=== PATIENT | female | born 1940 | race Caucasian/White ===

== ENCOUNTER 2017-03-10 09:03 | Outpatient (CLI) | payer MEDICARE, OTHER, MEDICAID ==
--- NOTE | 2017-03-10 12:52 | XRAY Report ---
TWO VIEWS LEFT KNEE: 03/10/2017 CLINICAL HISTORY: The patient has left knee pain. FINDINGS: A left total knee prosthesis is seen in place in anatomical position and alignment. The pr osthesis is held in place by methylmethacrylate glue in the distal femur and proximal tibia. Examinat ion is negative for signs of loosening. The left knee joint shows no effusion. A bony ossicle is seen in the posterior aspect of the soft tissues of the left knee. This probably re presents an accessory ossicle/fabella. Secondary consideration would be a loose body. IMPRESSION: LEFT TOTAL KNEE PROSTHESIS SEEN IN PLACE IN ANATOMICAL POSITION AND ALIGNMENT. JOB #: [id number] EXT JOB #:[id number]
== END 2017-03-10 09:04 | disposition home or self-care (01) ==
LOC: DI 09:03
PROVIDERS: ATTEND Family Medicine
DX: M25.562 Pain in left knee (principal); Z96.652 Presence of left artificial knee joint

== ENCOUNTER 2017-03-10 18:40 | Outpatient (CLI) | payer MEDICARE, OTHER, MEDICAID | END 2017-03-10 18:41 | disposition critical access hospital (66) | LOC: EMS 18:40 | PROVIDERS: ATTEND Surgery | DX: M79.652 Pain in left thigh (principal); W01.0XXA Fall on same level from slipping, tripping and stumbling without subsequent striking against object, initial encounter; Y92.039 Unspecified place in apartment as the place of occurrence of the external cause | CPT/HCPCS: A0425; A0429 ==

== ENCOUNTER 2017-03-10 18:57 | Inpatient (IN) | payer MEDICARE, OTHER, MEDICAID ==
[2017-03-10] MEDS ORDERED: fentaNYL 100 MCG/2 ML VIAL IVP STA (19:15)
[2017-03-10] MEDS ORDERED: fentaNYL 100 MCG/2 ML VIAL ONE (19:19)
--- NOTE | 2017-03-10 19:29 | ED Physician Documentation ---
PD HPI LOWER EXT INJURY - Stated complaint Stated Complaint: GLF - Chief complaint Chief Complaint: Ext Problem - History obtained from History obtained from: Patient, Family - History of Present Illness PD HPI LOW EXT INJURY LOCATION: Left (Mechanical trip and fall onto the left hip today. She has severe pain and is unable to ambulate. No other injuries, no head or neck injury. She does have bilateral total knee replacements.), Other Review of Systems Ten Systems: 10 systems reviewed and negative GI: denies: Abdominal Pain, Nausea Skin: denies: Abrasion (s) Musculoskeletal: denies: Neck pain, Back pain Neurologic: denies: Headache, Head injury PD PAST MEDICAL HISTORY - Past Medical History Past Medical History: Yes Cardiovascular: Hypertension - Allergies Allergies/Adverse Reactions: Allergies Allergy/AdvReac Type Severity Reaction Status Date / Time Penicillins Allergy Unknown Verified 03/10/17 19:31 - Social History Does the pt smoke?: No Does the pt drink ETOH?: No Does the pt have substance abuse?: No - Family History Family history: reports: Non contributory PD ED PE NORMAL - Vitals Vital signs reviewed: Yes - General General: Alert and oriented X 3, Other (obviously in pain) - HEENT HEENT: PERRL, EOMI - Neck Neck: Supple, no meningeal sign, No bony TTP - Cardiac Cardiac: RRR, No murmur - Respiratory Respiratory: No respiratory distress, Clear bilaterally - Abdomen Abdomen: Soft, Non tender - Back Back: No CVA TTP, No spinal TTP - Derm Derm: Normal color, Warm and dry - Extremities Extremities: Other (Left hip is severely shortened and very tender, NVI in the foot.) - Neuro Neuro: Alert and oriented X 3, Normal speech Results - Vitals Vitals: Vital Signs - 24 hr 03/10/17 03/10/17 18:58 19:50 Temperature 36.0 C L Heart Rate 91 96 Respiratory 17 18 Rate Blood Pressure 139/119 H 162/85 H O2 Saturation 99 99 Oxygen O2 Source Room air - EKG (time done) 1951 Rate: Rate (enter#) (91) Rhythm: NSR Intervals: Prolonged [place], LBBB QRS: LVH Ischemia: Non specific changes. No: ST elevation c/w ischemia Computer interpretation: Agree with computer - Labs Labs: Laboratory Tests 03/10/17 03/10/17 03/10/17 19:32 19:32 19:32 WBC 7.0 RBC 3.82 L Hgb 11.9 L Hct 35.1 L MCV 92.0 MCH 31.1 H MCHC 33.8 RDW 15.7 H Plt Count 239 MPV 8.1 Neut # 4.6 Lymph # 1.7 [place] # 0.6 Eos # 0.1 Baso # 0.0 Absolute Nucleated RBC 0.01 Nucleated RBCs 0.1 PT 11.8 INR 1.0 Sodium 138 Potassium 3.4 L Chloride 103 Carbon Dioxide 24 Anion Gap 11.0 BUN 21 H Creatinine 1.1 H Estimated GFR (MDRD) 48 L Glucose 178 H Calcium 9.4 Total Bilirubin 0.8 AST 19 ALT 12 Alkaline Phosphatase 102 Total Protein 7.2 Albumin 4.1 Globulin 3.1 Albumin/Globulin Ratio 1.3 Lipase 44 Blood Type Antibody Screen 03/10/17 19:32 WBC RBC Hgb Hct MCV MCH MCHC RDW Plt Count MPV Neut # Lymph # [place] # Eos # Baso # Absolute Nucleated RBC Nucleated RBCs PT INR Sodium Potassium Chloride Carbon Dioxide Anion Gap BUN Creatinine Estimated GFR (MDRD) Glucose Calcium Total Bilirubin AST ALT Alkaline Phosphatase Total Protein Albumin Globulin Albumin/Globulin Ratio Lipase Blood Type A POSITIVE Antibody Screen NEGATIVE - Rads (name of study) 1v chest Radiology: EMP read contemporaneously (3cm Left perihilar opacity) L hip Radiology: EMP read contemporaneously (subtroch frx) PD MEDICAL DECISION MAKING - ED course ED course: Isolated L hip inj after GLF. Spoke with ania Araiza, will likely operate tomorrow. Also Dr Pearce, hospitalist who will admit and followup on Chest CT. - Consults Consults: Consulted (name) (ania BECK, will see and likely operate tomorrow) , Discussed case with (Paolo Pearce, hospitalist [id number] will f/u on chest CT given abnormality.) Departure - Departure Disposition: 66 [facility] DC/Xfer Clinical Impression: Pulmonary mass Subtrochanteric fracture of left femur Qualifiers: Encounter type: initial encounter Fracture type: closed Qualified Code(s): S72.22XA - Displaced subtrochanteric fracture of left femur, initial encounter for closed fracture Condition: Serious
[2017-03-10 19:40] LABS: BASOPHILS % (AUTO) 0.5 %; EOSINOPHILS # (AUTO) 0.1 10^3/uL (0.0-0.7); HCT - HEMATOCRIT 35.1 % (37.0-47.0); HGB - HEMOGLOBIN 11.9 g/dL (12.0-16.0); LYMPHOCYTES # (AUTO) 1.7 10^3/uL (1.5-3.5); LYMPHOCYTES % (AUTO) 24.4 %; MEAN CORPUSCULAR HEMOGLOBIN 31.1 pg (27.0-31.0); MEAN CORPUSCULAR HGB CONC 33.8 g/dL (32.0-36.0); MEAN PLATELET VOLUME 8.1 fL (7.9-10.8); MONOCYTES # (AUTO) 0.6 10^3/uL (0.0-1.0); MONOCYTES % (AUTO) 8.3 %; NEUTROPHILS # (AUTO) 4.6 10^3/uL (1.5-6.6); NEUTROPHILS % (AUTO) 64.8 %; NUCLEATED RED BLOOD CELLS AUTO 0.1 /100WBC; RED BLOOD COUNT 3.82 10^6/uL (4.20-5.40); RED CELL DISTRIBUTION WIDTH 15.7 % (12.0-15.0)
[2017-03-10 19:46] LABS: PT - PROTHROMBIN TIME 11.8 secs (9.9-12.6)
[2017-03-10] MEDS ORDERED: HYDROmorphone 1 MG/ML SYRINGE ONE ×2 (19:47→20:17)
[2017-03-10] MEDS ORDERED: HYDROmorphone 1 MG/ML SYRINGE IVP STA ×2 (19:48→20:18)
[2017-03-10 19:53] LABS: ALBUMIN/GLOBULIN RATIO 1.3 (1.0-2.2); BILIRUBIN,TOTAL 0.8 mg/dL (0.2-1.0); CALCIUM 9.4 mg/dL (8.5-10.3); CREATININE 1.1 mg/dL (0.4-1.0); POTASSIUM 3.4 mmol/L (3.5-5.0); TOTAL PROTEIN 7.2 g/dL (6.7-8.2)
--- NOTE | 2017-03-10 20:44 | XRAY Preliminary Report ---
Exam: XR Chest 1 View IMPRESSION: 1. A 3 cm left perihilar density. Question lung nodule, loculated pleural fluid, focal airspace disea se or superimposed postoperative seroma from prior lumpectomy. Consider chest CT if clinically warran carmen. [facility] SITE ID: [id number]
--- NOTE | 2017-03-10 20:46 | XRAY Report ---
EXAM: CHEST RADIOGRAPHY EXAM DATE: 03/10/2017 08:21 PM. CLINICAL HISTORY: Preop. COMPARISON: None. TECHNIQUE: 1 view. Brassiere artifact. FINDINGS: Lungs/Pleura: 3 cm left perihilar density. No pneumothorax or pleural effusion. Mediastinum: Atherosclerotic aortic calcifications. Other: Left axillary surgical clips. Question prior left breast surgery. Probable hiatal hernia. IMPRESSION: 1. A 3 cm left perihilar density. Question lung nodule, loculated pleural fluid, focal airspace disea se or superimposed postoperative seroma from prior lumpectomy. Consider chest CT if clinically warran carmen. Case discussed with Dr. Rivera on day of exam at 8:42 PM. [facility] Referring Provider Line: [phone] SITE ID: [id number]
--- NOTE | 2017-03-10 20:48 | XRAY Preliminary Report ---
Exam: XR Hip w/Pelvis 2-3V LT IMPRESSION: Acute oblique subtrochanteric left femur fracture with 25 degrees apex lateral angulatio n and 3 cm displacement. [facility] SITE ID: [id number]
--- NOTE | 2017-03-10 20:51 | XRAY Report ---
EXAM: LEFT HIP AND PELVIS RADIOGRAPHY EXAM DATE: 03/10/2017 08:21 PM. HISTORY: Hip inj. COMPARISONS: None. TECHNIQUE: 1 view of the pelvis and 1 view of the hip. FINDINGS: Bones: Acute oblique subtrochanteric left femur fracture with 25 degrees apex lateral angulation and 3 cm displacement. Joints: The bilateral hip, pubis symphysis, and sacroiliac joints are preserved. Soft Tissues: Lateral left hip soft tissue swelling. IMPRESSION: Acute oblique subtrochanteric left femur fracture with 25 degrees apex lateral angulatio n and 3 cm displacement. [facility] Referring Provider Line: [phone] SITE ID: [id number]
[2017-03-10] MEDS ORDERED: ACETAMINOPHEN 1,000 MG/100 ML 100 ML IV STA (21:17)
[2017-03-10] MEDS ORDERED: ACETAMINOPHEN 1,000 MG/100 ML 100 ML IV ONE (21:19)
[2017-03-10] MEDS ORDERED: IOPAMIDOL-300 100 ML VIAL IVP ONE (21:20)
[2017-03-10] MEDS ORDERED: POTASSIUM CHLORIDE 20 MEQ TABLET PO STA (21:29)
[2017-03-10] MEDS ORDERED: ZOLPIDEM 5 MG TABLET PO PRN (21:30)
[2017-03-10] MEDS ORDERED: SODIUM CHLORIDE FLUSH 0.9% 10 ML SYRINGE IVP PRN (21:30)
[2017-03-10] MEDS ORDERED: ACETAMINOPHEN 325 MG TABLET PO PRN (21:30)
[2017-03-10] MEDS ORDERED: oxyCODONE 5 MG TABLET PO PRN (21:30)
[2017-03-10] MEDS ORDERED: ONDANSETRON 4 MG/2 ML VIAL IVP PRN (21:30)
[2017-03-10] MEDS ORDERED: POTASSIUM CHLORIDE 20 MEQ TABLET PO ONE (21:33)
[2017-03-10] MEDS ORDERED: SODIUM CHLORIDE 0.9% 500 ML IV SCH (21:35)
--- NOTE | 2017-03-10 21:50 | CT Preliminary Report ---
Exam: CT Chest W/ IMPRESSION: 1. Spiculated nodule in the superior segment of the left lower lobe with small adjacent satellite nod ule, appearance most compatible with primary lung malignancy. Recommend tissue sampling. 2. Several tiny pulmonary nodules elsewhere, including in the left lower lobe base and posterior righ t middle lobe, indeterminate. 3. No adenopathy. 4. Moderate to large hiatal hernia. 5. Cholelithiasis. [facility] SITE ID: [id number]
--- NOTE | 2017-03-10 21:53 | CT Report ---
EXAM: CT CHEST EXAM DATE: 03/10/2017 09:21 PM. CLINICAL HISTORY: Pulmonary mass. COMPARISONS: Chest radiograph, same day. TECHNIQUE: Routine helical CT imaging was performed through the chest. IV contrast: 60 mL Isovue-300. Reconstructions: Coronal and sagittal. In accordance with CT protocol optimization, one or more of the following dose reduction techniques w ere utilized for this exam: automated exposure control, adjustment of mA and/or KV based on patient s ize, or use of iterative reconstructive technique. FINDINGS: Thyroid Gland: Normal as visualized. Lungs/Pleura: Spiculated nodule in the superior segment of the left lower lobe, abutting the fissure, 3.0 x 2.8 x 2.8 cm (lung window image 45, coronal image 41). Adjacent 4 mm subpleural satellite nodu le (image 28). Few small pulmonary nodules elsewhere, including a 6 mm nodule in the medial left lowe r lobe base (image 42), a 4 mm subpleural nodule in the central left lower lobe base (image 46), and a 3 mm nodule in the posterior right middle lobe (image 29). Mild dependent atelectasis. No pleural e ffusion. Mediastinum: Heart size is normal. No pericardial effusion. Mild atherosclerotic calcifications withi n the aorta. The aorta and visualized central pulmonary arteries are otherwise unremarkable. No adeno yared. Bones: Degenerative changes within the spine. No suspicious lytic or blastic osseous lesion. Visualized Abdomen: Moderate to large hiatal hernia containing the proximal stomach. Cholelithiasis. Focal cortical scarring in the upper pole of the right kidney. 14 mm cortical cyst in the posterior r ight upper pole. Other: None. IMPRESSION: 1. Spiculated nodule in the superior segment of the left lower lobe with small adjacent satellite nod ule, appearance most compatible with primary lung malignancy. Recommend tissue sampling. 2. Several tiny pulmonary nodules elsewhere, including in the left lower lobe base and posterior righ t middle lobe, indeterminate. 3. No adenopathy. 4. Moderate to large hiatal hernia. 5. Cholelithiasis. [facility] Referring Provider Line: [phone] SITE ID: [id number]
[2017-03-10] MEDS ORDERED: POTASSIUM CHLORIDE 20 MEQ TABLET PO SCH (21:56)
[2017-03-10] MEDS: SODIUM CHLORIDE FLUSH 0.9% 10 ML SYRINGE IVP SCH (22:28)
[2017-03-10] MEDS: KETOROLAC 15 MG/ML VIAL IVP PRN (22:48)
[2017-03-10] MEDS: MORPHINE 2 MG/ML SYRINGE IVP PRN (22:55)
[2017-03-11] MEDS: MORPHINE 2 MG/ML SYRINGE IVP PRN ×2 (00:58→06:29)
[2017-03-11 01:39] LABS: BILIRUBIN,URINE NEGATIVE (NEGATIVE)
[2017-03-11 01:45] LABS: UR CULTURE IF IND NOT INDICATED; WBC,URINE 0-3 /HPF (0-5)
[2017-03-11] MEDS: SODIUM CHLORIDE FLUSH 0.9% 10 ML SYRINGE IVP SCH (06:30)
--- NOTE | 2017-03-11 06:34 | PROVIDER PROGRESS NOTE ---
Subjective - Prog Note Date Prog Note Date: 03/11/17 Prog Note Time: 06:31 - Subjective Pt reports feeling: Worse (Painful left hip) Objective - Vital Signs/Intake & Output Vital Signs: Vital Signs x48h Temp Pulse Resp BP Pulse Ox 03/11/17 01:04 37.0 C 88 16 142/88 H 98 Intake & Output: Intake & Output 03/08/17 03/09/17 03/10/17 03/11/17 23:59 23:59 23:59 23:59 Intake Total 500 Output Total 225 Balance -225 500 - Lab Results Fish Bones: 03/10/17 19:32 03/10/17 19:32 Other Labs: Lab Results x24hrs 03/11/17 03/11/17 03/11/17 Range/Units 05:51 05:51 01:10 Troponin I < 0.04 (<0.49) ng/mL B-Natriuretic Peptide 94 (5-100) pg/mL Urine Color YELLOW Urine Clarity CLEAR (CLEAR) Urine pH 6.0 (5.0-7.5) PH Ur Specific [place] 1.015 (1.002-1.030) Urine Protein NEGATIVE (NEGATIVE) mg/dL Urine Glucose (UA) NEGATIVE (NEGATIVE) mg/dL Urine Ketones NEGATIVE (NEGATIVE) mg/dL Urine Occult Blood NEGATIVE (NEGATIVE) Urine Nitrite NEGATIVE (NEGATIVE) Urine Bilirubin NEGATIVE (NEGATIVE) Urine Urobilinogen 0.2 (NORMAL) (NORMAL) E.U./dL Ur Leukocyte Esterase NEGATIVE (NEGATIVE) Urine RBC 0-5 (0-5) /HPF Urine WBC 0-3 (0-5) /HPF Ur Squamous Epith Cells FEW Squamous (<= Few) Urine Bacteria Rare (None Seen) /HPF Urine Culture Comments NOT INDICATED - Diagnostic Imaging Diagnostic Imaging Comments: XR show angulated left subtrochanteric hip fracture. Intact left TKR with short femoral stem - Other Results/Comments Other Results/Comments: EXAM: Left hip held in a flexed position. Painful left motion. Moves toes well. Sensation intact. Good cap filling Assessment/Plan - Problem List (1) Subtrochanteric fracture of left femur Impression: Closed left subtrochanteric hip fracture PLAN: To OR for long interTan nailing of left hip fracture. Risk and benefits explained. Patient appears to understand and wants to proceed as planned this AM..Attempts to contact daughter through the night and this AM unsuccessful. Qualifiers: Encounter type: initial encounter Fracture type: closed Qualified Code(s) : S72.22XA - Displaced subtrochanteric fracture of left femur, initial encounter for closed fracture
[2017-03-11] MEDS ORDERED: ceFAZolin 2 GM/50 ML 50 ML IV SCH (06:45)
--- NOTE | 2017-03-11 07:02 | PROVIDER PROGRESS NOTE ---
Subjective - Prog Note Date Prog Note Date: 03/11/17 Prog Note Time: 07:01 Objective - Vital Signs/Intake & Output Vital Signs: Vital Signs x48h Temp Pulse Resp BP Pulse Ox 03/11/17 03:53 37.2 C 89 16 146/78 H 95 03/11/17 01:04 37.0 C 88 16 142/88 H 98 Intake & Output: Intake & Output 03/08/17 03/09/17 03/10/17 03/11/17 23:59 23:59 23:59 23:59 Intake Total 500 Output Total 225 400 Balance -225 100 - Lab Results Fish Bones: 03/10/17 19:32 03/10/17 19:32 Other Labs: Lab Results x24hrs 03/11/17 03/11/17 03/11/17 Range/Units 05:51 05:51 01:10 Troponin I < 0.04 (<0.49) ng/mL B-Natriuretic Peptide 94 (5-100) pg/mL Urine Color YELLOW Urine Clarity CLEAR (CLEAR) Urine pH 6.0 (5.0-7.5) PH Ur Specific [place] 1.015 (1.002-1.030) Urine Protein NEGATIVE (NEGATIVE) mg/dL Urine Glucose (UA) NEGATIVE (NEGATIVE) mg/dL Urine Ketones NEGATIVE (NEGATIVE) mg/dL Urine Occult Blood NEGATIVE (NEGATIVE) Urine Nitrite NEGATIVE (NEGATIVE) Urine Bilirubin NEGATIVE (NEGATIVE) Urine Urobilinogen 0.2 (NORMAL) (NORMAL) E.U./dL Ur Leukocyte Esterase NEGATIVE (NEGATIVE) Urine RBC 0-5 (0-5) /HPF Urine WBC 0-3 (0-5) /HPF Ur Squamous Epith Cells FEW Squamous (<= Few) Urine Bacteria Rare (None Seen) /HPF Urine Culture Comments NOT INDICATED Assessment/Plan - Problem List (1) Subtrochanteric fracture of left femur Impression: PLAN: Did contact patient's daughter by phone. Explained surgical options for her mother and answered questions. Explained risk and benefits of surgery. Will plan as scheduled with interTan nialing of left hip fracture this AM. Qualifiers: Encounter type: initial encounter Fracture type: closed Qualified Code(s) : S72.22XA - Displaced subtrochanteric fracture of left femur, initial encounter for closed fracture
--- NOTE | 2017-03-11 07:09 | CONSULTATION NOTE ---
DATE OF CONSULTATION: 03/11/2017 00:00:00 REQUESTING PROVIDER: Dr. Avni Rivera of the emergency room. CHIEF COMPLAINT: "My left hip hurts." HISTORY OF PRESENT ILLNESS: The patient is a 77-year-old woman who apparently was attemptin g to walk around a chair to sit in a sofa in her living room yesterday when she lost her balance and fell onto her left side. She noted immediate pain and deformity at the left hip. Was unable to stand or weight bear on this left side. She was taken to the emergency room here at [facility], where x-rays showed an angulated left closed subtrochanteric hip fracture. She denies a loss of co nsciousness or other injuries. No distal weakness or numbness noted. No prior hip fractures noted. PHYSICAL EXAMINATION GENERAL: An overweight elderly female lying in bed with her left hip flexed in moderate dis tress. VITAL SIGNS: BP 142/88, pulse 88, respirations 16. MUSCULOSKELETAL: Left hip - held in a flexed position. Painful hip range of motion noted. The patient moves her toes well on command. Sensation appeared to be intact. Good capillary filling noted. IMAGING: X-rays taken in the emergency room show an angulated subtrochanteric hip fracture. The patie nt has had a prior left total knee replacement as well. This shows prosthesis to be stable. Has a amna rt femoral stem present. ASSESSMENT: Closed angulated left subtrochanteric hip fracture. PLAN: Discussed treatment options with the patient today. She wishes to proceed with surgical interve ntion. I attempted to contact the daughter but was unable to reach her by phone this morning. Per the patient's wishes and my advice, we will then proceed with a closed long InterTan nailing of the left hip fracture. Risks and benefits of surgery were explained to the patient. She appeared to chris barbosa Wishes us to proceed as planned. JOB #: [id number] EXT JOB #:[id number]
--- NOTE | 2017-03-11 07:27 | HISTORY & PHYSICAL EXAMINATION ---
DATE OF ADMISSION: 03/10/2017 CHIEF COMPLAINT: Ground-level fall. SOURCE OF HISTORY: The patient's daughter and the ER doctor provided history, on admission the patient was drowsy after given pain medication. HISTORY OF PRESENT ILLNESS: The patient is a 77-year-old white female with past medical history of remote breast cancer status post lumpectomy, osteoarthritis, and hypertension, who was brought into [facility] ER after she suffered a ground- level fall and developed intense left hip pain, was unable to ambulate. At the ER, the patient was found with a complex left hip fracture, orthopedic surgeon, Dr. Mcgarry, was notified and he thought that the patient was an operative candidate and should be going for surgery on the morning of March 11. Given the intense pain, the patient received pain medications, and when I interviewed her she could not provide much input. Her daughter, however, reported that this was clearly a ground-level fall, the patient tripped over a trash can. The patient could tell me that she did not have any chest pain, shortness of breath , dizziness prior to or after the fall. Regarding the ER workup, EKG showed left ventricular hypertrophy. No acute ischemia. Laboratory showed hemoglobin of 11.9, BUN 21, creatinine 1.1. INR was normal. Potassium was 3.4. Chest x-ray showed a 3 cm perihilar opacity. The ER physician discussed this with the radiologist and initially the radiologist's opinion was that it could be an extrapulmonary opacity secondary to a postoperative seroma related to the patient's remote breast lumpectomy. In any case, this was followed up with a CT scan of the chest, which unfortunately showed a spiculated complex mass, most consistent with malignancy. In addition, there were other smaller lung nodules. Regarding the vital signs, the patient had been hemodynamically stable. She did not require supplemental oxygen, saturating 100% on room air, respiration rate was 16, blood pressure 150/70, temperature 36.6 Celsius, heart rate was in the 80s. ALLERGIES: PENICILLIN. PAST MEDICAL HISTORY 1. Hypertension. 2. Osteoarthritis status post bilateral knee replacements. 3. History of left-sided breast cancer status post remote lumpectomy, no recurrence. OUTPATIENT MEDICATIONS: The patient takes multiple medications including diuretics. She could not provide a medication list. SOCIAL HISTORY: The patient resides at [facility] assisted [facility] facility. She is a nonsmoker. EMERGENCY ROOM WORKUP: Reviewed per electronic medical record. PRIMARY CARE PHYSICIAN: Kan Taveras. CODE STATUS: DO NOT RESUSCITATE. REVIEW OF SYSTEMS: The patient could not provide, symptoms listed by her daughter are in the history of present illness. FAMILY HISTORY: The patient could not provide. PHYSICAL EXAMINATION VITAL SIGNS: Please see listed above in history of present illness. GENERAL APPEARANCE: A well-developed, elderly female who was somnolent but arousable. NEUROLOGICAL: Neurologically nonfocal. PSYCH: Cooperative. CARDIOVASCULAR: S1, S2, regular, no obvious murmur. RESPIRATORY: No increased work of breathing, clear to auscultation without wheezes or crackles. ABDOMEN: Obese, nontender. Bowel sounds present. MUSCULOSKELETAL: Obese. Left hip pain, tenderness, decreased range of motion. LYMPH: There is 1+ pitting edema on both lower extremities. SKIN: Mild pallor, no jaundice. ASSESSMENT AND PLAN Active issues/diagnoses: 1. Mechanical fall. Besides this fall, the patient did suffer a fall a few months ago. She might need more assistance as an outpatient than what she had been receiving. 2. Subtrochanteric fracture of the left femur. 3. Pulmonary spiculated mass on the left side, this is most likely malignancy and will require biopsy and further workup. 4. Mild hypokalemia, was replaced in the emergency room. 5. Dehydration, likely secondary to outpatient diuretic use. 6. Anemia, unknown baseline blood counts, no history or symptoms for gastrointestinal bleed. PLAN AND ORDERS 1. The patient is getting admitted as inpatient. It seems that her care could not be better facilitated if I would approach transferring her somewhere overnight. She actually already has an orthopedic surgeon who agreed to operate on her on March 11, and repair her hip fracture. After her hip fracture is handled, it should be a priority to obtain biopsy for the left lung mass. Therefore, there are several options. The best, I think, would be get the hip surgery done and subsequently instead of physical therapy here at [facility], transfer the patient to a facility where together with her orthopedic recovery she could have the lung mass workup done as well. In any case, this will be coordinated at a later time, I suppose on the second or third hospital day. I did advise the patient's daughter and the patient about the lung mass, and I told them that a biopsy will be needed. Regarding preoperative clearance, the patient's clinical status was stable. She did not require supplemental oxygen and I do not think that the lung mass would affect the hip surgery. Cardiac carrera, there was no contraindication. 2. Overnight, the patient is receiving pain control, supportive care, will be n.p.o. after midnight, will receive IV fluids. DVT prophylaxis. 3. Awaiting medication reconciliation. 4. Social work for discharge planning. Time spent in the care of this patient was 65 minutes. JOB #: [id number] EXT JOB #:[id number] [email or web address]
[2017-03-11] MEDS ORDERED: LACTATED RINGERS 1,000 ML IV ONE ×3 (08:18)
[2017-03-11] MEDS ORDERED: DEXAMETHASONE 4 MG/ML VIAL IVP ONE (08:53)
[2017-03-11] MEDS ORDERED: ceFAZolin 1 GM VIAL IV ONE (08:53)
[2017-03-11] MEDS ORDERED: LIDOCAINE-MPF 2% 5 ML VIAL IM ONE (08:53)
[2017-03-11] MEDS ORDERED: ONDANSETRON 4 MG/2 ML VIAL IVP ONE (08:53)
[2017-03-11] MEDS ORDERED: PHENYLEPHRINE 50 MG/5 ML VIAL IV ONE (08:53)
[2017-03-11] MEDS ORDERED: fentaNYL 100 MCG/2 ML VIAL IVP ONE (08:53)
[2017-03-11] MEDS ORDERED: MIDAZOLAM 2 MG/2 ML VIAL IVP ONE (08:53)
[2017-03-11] MEDS ORDERED: PROPOFOL 200 MG/20 ML VIAL IVP ONE (08:53)
[2017-03-11] MEDS ORDERED: TRANEXAMIC ACID 1,000 MG/10 ML VIAL IV ONE (08:53)
[2017-03-11] MEDS ORDERED: ACETAMINOPHEN 1,000 MG/100 ML VIAL IV ONE (08:53)
[2017-03-11] MEDS ORDERED: FAMOTIDINE 20 MG/50 ML 50 ML IV SCH (09:00)
[2017-03-11] MEDS ORDERED: ENOXAPARIN 40 MG/0.4 ML SYRINGE SUBQ SCH (09:00)
[2017-03-11 09:26] LABS: HCT - HEMATOCRIT 25.3 % (37.0-47.0)
[2017-03-11] MEDS ORDERED: SODIUM CHLORIDE 0.9% 1,000 ML IV ONE ×2 (10:46)
[2017-03-11] MEDS ORDERED: BUPIVACAINE 0.25%-EPI 1:200000 PF 30 ML VIAL SUBQ ONE ×2 (10:59→12:06)
[2017-03-11] MEDS ORDERED: ACETAMINOPHEN 1,000 MG/100 ML 100 ML IV PRN (11:56)
[2017-03-11] MEDS ORDERED: DOCUSATE SODIUM 100 MG CAPSULE PO PRN (11:56)
[2017-03-11] MEDS ORDERED: ONDANSETRON 4 MG/2 ML VIAL IVP PRN (11:56)
[2017-03-11] MEDS ORDERED: MORPHINE 2 MG/ML SYRINGE IVP PRN (11:56)
[2017-03-11] MEDS ORDERED: PROCHLORPERAZINE 10 MG/2 ML VIAL IVP PRN (11:56)
[2017-03-11] MEDS ORDERED: SENNA 8.6 MG TABLET PO PRN (11:56)
--- NOTE | 2017-03-11 11:56 | OPERATIVE REPORT ---
Operative Report - General Admit Date: 03/10/17 Procedure Date: 03/11/17 Planned Procedure: INterTan nailing of left subtrochanter hip fracture Pre-Op Diagnosis: Right subtrochanteric hip fracture Post Op Diagnosis: Same - Procedure Note Primary Surgeon: Lloyd Mcgarry Anesthesia Provider: Allan Aguirre Anesthesia Technique: General ET tube Estimated Blood Loss (in cc): 1,800 Complications: None
[2017-03-11] MEDS ORDERED: SODIUM CHLORIDE 0.9% 0 ML IV ONE (12:39)
--- NOTE | 2017-03-11 13:33 | PROVIDER PROGRESS NOTE ---
Assessment/Plan - Problem List (1) Pulmonary mass Assessment/Plan: She has a spiculated 3 cm mass of the lung. This needs further W/U. Will decide on the W/U after her surgery. (2) Subtrochanteric fracture of left femur Qualifiers: Encounter type: initial encounter Fracture type: closed Qualified Code(s) : S72.22XA - Displaced subtrochanteric fracture of left femur, initial encounter for closed fracture Assessment/Plan: She is post op a couple of hours. She is in ICU due to blood loss. She has received 3 units of PRBCs. She is getting 2 units of FFP. She will have a H/H this afternoon. - Current Meds Current Meds: Current Medications Generic Name Dose Route Start Last Admin Trade Name Freq PRN Reason Stop Dose Admin Ketorolac Tromethamine 15 mg 03/10/17 21:36 03/10/17 22:48 Toradol Inj IVP 03/15/17 21:35 15 mg Q6HR PRN Administration PAIN - Lab Result Fish Bone Diagrams: 03/11/17 09:00 03/10/17 19:32 - Additional Planning My Orders: My Active Orders 03/11/17 09:29 Transfuse RBCs Leukoreduced [RC] ONCE 03/11/17 12:10 MRSA (NASAL) PCR SCREEN [RAPID] Routine 03/11/17 12:16 Cultural Swab [RC] .ONCE Subjective - Subjective Patient Reports: Pain Nursing Reports: Sedated Objective Vital Signs: Vital Signs - 24 hr 03/10/17 03/11/17 03/11/17 22:30 01:04 03:53 Temperature 36.6 C 37.0 C 37.2 C Heart Rate [ 82 88 89 Brachial] Respiratory 16 16 16 Rate Blood Pressure 133/75 H 142/88 H 146/78 H [Right Brachial artery] O2 Saturation 97 98 95 03/11/17 03/11/17 03/11/17 12:00 12:10 12:15 Temperature Heart Rate [ Brachial] Respiratory Rate Blood Pressure [Right Brachial artery] O2 Saturation 100 100 98 03/11/17 03/11/17 03/11/17 12:20 12:26 12:27 Temperature 36.4 C L Heart Rate [ 68 Brachial] Respiratory 16 Rate Blood Pressure 110/81 H [Right Brachial artery] O2 Saturation 100 100 100 03/11/17 03/11/17 12:33 13:17 Temperature 36.4 C L Heart Rate [ 73 Brachial] Respiratory 18 Rate Blood Pressure 127/61 [Right Brachial artery] O2 Saturation 100 Oxygen O2 Source Room air I&O (Last 24 Hrs): Intake and Output Totals x24h 03/09/17 03/10/17 03/11/17 23:59 23:59 23:59 Intake Total 764 Output Total 225 410 Balance -225 354 General: Alert, Cooperative HEENT: PERRLA, EOMI Neck: No JVD, No thyromegaly Neuro: Non Focal Cardiovascular: Regular rate, No murmurs Respiratory: No respiratory distress, Breath sounds nml Abdomen: Soft, No tenderness Extremities: No clubbing, No cyanosis Skin: No rashes, No breakdown - Results Results: Laboratory Results WBC 7.0 x10^3/uL (4.8-10.8) 03/10/17 19:32 RBC 3.82 10^6/uL (4.20-5.40) L 03/10/17 19:32 Hgb 9.0 g/dL (12.0-16.0) L 03/11/17 09:00 Hct 25.3 % (37.0-47.0) L 03/11/17 09:00 MCV 92.0 fL (81.0-99.0) 03/10/17 19:32 MCH 31.1 pg (27.0-31.0) H 03/10/17 19:32 MCHC 33.8 g/dL (32.0-36.0) 03/10/17 19:32 RDW 15.7 % (12.0-15.0) H 03/10/17 19:32 Plt Count 239 10^3/uL (130-450) 03/10/17 19:32 MPV 8.1 fL (7.9-10.8) 03/10/17 19:32 Neut # 4.6 10^3/uL (1.5-6.6) 03/10/17 19:32 Lymph # 1.7 10^3/uL (1.5-3.5) 03/10/17 19:32 [place] # 0.6 10^3/uL (0.0-1.0) 03/10/17 19:32 Eos # 0.1 10^3/uL (0.0-0.7) 03/10/17 19:32 Baso # 0.0 10^3/uL (0.0-0.1) 03/10/17 19:32 Absolute Nucleated RBC 0.01 x10^3/uL 03/10/17 19:32 Nucleated RBCs 0.1 /100WBC 03/10/17 19:32 PT 11.8 secs (9.9-12.6) 03/10/17 19:32 INR 1.0 (0.8-1.2) 03/10/17 19:32 Sodium 138 mmol/L (135-145) 03/10/17 19:32 Potassium 3.4 mmol/L (3.5-5.0) L 03/10/17 19:32 Chloride 103 mmol/L (101-111) 03/10/17 19:32 Carbon Dioxide 24 mmol/L (21-32) 03/10/17 19:32 Anion Gap 11.0 (6-13) 03/10/17 19:32 BUN 21 mg/dL (6-20) H 03/10/17 19:32 Creatinine 1.1 mg/dL (0.4-1.0) H 03/10/17 19:32 Estimated GFR (MDRD) 48 (>89) L 03/10/17 19:32 Glucose 178 mg/dL (70-100) H 03/10/17 19:32 Calcium 9.4 mg/dL (8.5-10.3) 03/10/17 19:32 Total Bilirubin 0.8 mg/dL (0.2-1.0) 03/10/17 19:32 AST 19 IU/L (10-42) 03/10/17 19:32 ALT 12 IU/L (10-60) 03/10/17 19:32 Alkaline Phosphatase 102 IU/L (42-121) 03/10/17 19:32 Troponin I < 0.04 ng/mL (<0.49) 03/11/17 05:51 B-Natriuretic Peptide 94 pg/mL (5-100) 03/11/17 05:51 Total Protein 7.2 g/dL (6.7-8.2) 03/10/17 19:32 Albumin 4.1 g/dL (3.2-5.5) 03/10/17 19:32 Globulin 3.1 g/dL (2.1-4.2) 03/10/17 19:32 Albumin/Globulin Ratio 1.3 (1.0-2.2) 03/10/17 19:32 Lipase 44 U/L (22-51) 03/10/17 19:32 Urine Color YELLOW 03/11/17 01:10 Urine Clarity CLEAR (CLEAR) 03/11/17 01:10 Urine pH 6.0 PH (5.0-7.5) 03/11/17 01:10 Ur Specific [place] 1.015 (1.002-1.030) 03/11/17 01:10 Urine Protein NEGATIVE mg/dL (NEGATIVE) 03/11/17 01:10 Urine Glucose (UA) NEGATIVE mg/dL (NEGATIVE) 03/11/17 01:10 Urine Ketones NEGATIVE mg/dL (NEGATIVE) 03/11/17 01:10 Urine Occult Blood NEGATIVE (NEGATIVE) 03/11/17 01:10 Urine Nitrite NEGATIVE (NEGATIVE) 03/11/17 01:10 Urine Bilirubin NEGATIVE (NEGATIVE) 03/11/17 01:10 Urine Urobilinogen 0.2 (NORMAL) E.U./dL (NORMAL) 03/11/17 01:10 Ur Leukocyte Esterase NEGATIVE (NEGATIVE) 03/11/17 01:10 Urine RBC 0-5 /HPF (0-5) 03/11/17 01:10 Urine WBC 0-3 /HPF (0-5) 03/11/17 01:10 Ur Squamous Epith Cells FEW Squamous (<= Few) 03/11/17 01:10 Urine Bacteria Rare /HPF (None Seen) 03/11/17 01:10 Urine Culture Comments NOT INDICATED 03/11/17 01:10 Blood Type A POSITIVE 03/10/17 19:32 Blood Type Recheck A POSITIVE 03/11/17 05:51 Antibody Screen NEGATIVE 03/10/17 19:32 Crossmatch IS Only See Detail 03/11/17 10:00
--- NOTE | 2017-03-11 13:34 | OPERATIVE REPORT ---
DATE OF SURGERY: 03/11/2017 00:00:00 PREOPERATIVE DIAGNOSIS: Angulated left subtrochanteric hip fracture. POSTOPERATIVE DIAGNOSIS: Angulated left subtrochanteric hip fracture. NAME OF PROCEDURE: Open reduction and InterTan nailing of left subtrochanteric hip fracture. SURGEON: Lloyd Mcgarry MD ANESTHESIA: Dasha Aguirre MD DESCRIPTION OF PROCEDURE: The patient was taken to the operating room on the morning of February, where she was placed under general anesthetic without any complications. She was then positioned s upine onto the fracture table. Her unfractured right leg was then flexed at her hip and widely abduct ed. This leg was held in the well leg dill. We then placed the fractured left lower extremity into axial traction with the leg internally rotated about 20 degrees. X-rays taken of the fracture with th e fracture in traction showed the fracture to be out to length, but the proximal portion to be flexed and not in alignment with the femoral shaft. Several attempts were made to improve the position, but were unsuccessful trying closed technique. We then prepped and draped the lateral aspect of her thigh in the usual fashion for our procedure. We then made a 6-inch lateral skin incision along the proximal portion of her thigh. We then did a musc le-dissecting splitting approach through the vastus lateralis muscle down to the fracture. Then, usin g Woods elevators and other instruments, we were able to free up the fracture fragments and to reduce the fracture. This was held in place with a large Bude clamp. Satisfied with our reduction in the o perating room, we then obtained fluoroscopic views, again showing a good reduction of our fracture an d the fracture to be out to length in both AP and lateral projections. We then made an oblique skin incision proximal to the tip of the greater trochanter, where we dissect ed down to the greater trochanter. This is where we placed a threaded tip guidewire. Satisfied with i ts position, we then used power to drill the pin down into the proximal femoral portion of the bone. Fluoroscopic views in AP and lateral projection showed a good reduction and placement of our pin. Sat isfied with this, we then proceeded to ream the proximal femur with the 16 mm channel reamer. Next, susan julio then removed the channel reamer. We placed a bent ball-tipped guide down the center of the proximal femoral fragment and down into the femoral shaft. Help was used with the spooned reduction metal welder to help direct our guide pin down the center of the femoral shaft. Fluoroscopic views in AP and later al projection showed interosseous location of our guide pin both in the proximal and the femoral shaf t fragments. This guide pin was then extended down towards the distal femur just proximal to the femoral post. Thi s was confirmed using the fluoroscopic machine. Direct measuring guide was then used to determine johnathan t we could use a 36 cm length InterTan nail. We then proceeded to sequentially ream the proximal femu r and femoral shaft, starting first with the 9 mm end cutting flexible IM reamer. This was advanced i n 0.5 mm increments until we reached the 11.5 mm size reamer. At this point, we were noticing some ch atter as we were reaming the femoral shaft. Satisfied with the amount of reaming, we then selected ou r implant. We selected a left 10 mm diameter x 36 cm length x 125 degree angled InterTan nail. This w as then placed into our alignment guide and inserting jig. We then proceeded to insert the nail over our guide pin down past the fracture proximally and then down the femoral shaft. We removed our ball- tipped guide pin from the nail. Fluoroscopic views again showed satisfactory insertion of our nail to the proper depth and maintenance of the reduction of our fracture. Satisfied with this, we then removed our reduction clamp. This maintained the alignment of the fractu re with slight flexion noted in the lateral view. This was easily reduced, however, using a Woods elev ator to put anterior pressure on the proximal fragment. With our assistant corporate secretary helping with the reduction with the Woods, applying the pressure anteriorly on the proximal fragment, we then proceeded to inser t the threaded guide pin through the oval drill sleeve in the distal end of our alignment guide. This was inserted with power. AP and lateral projections showed satisfactory placement of our guide pin a nd proper depth to within a few millimeters of the subchondral bone of the femoral head in both AP an d lateral projections. Satisfied with this, we used the direct measuring guide and determined we would use a 110 mm length d ual hip lag screw. We then proceeded to prepare the proximal femur for our dual hip lag screw. First, a short inferior drill was inserted to perforate the lateral femoral cortex. This was followed by th e longer drill that was advanced to 105 mm length. Fluoroscopic views confirmed the depth and positio n of our second drill in both AP and lateral projections. Satisfied with this, we removed this drill and inserted the derotation bar. Next, we then proceeded to ream the superior track for our hip screw using the cannulated reamer. Thi s was reamed to within a few millimeters of the subchondral bone. Care was made to remove our cannula carmen drill, maintaining our guide pin in the proper position and depth. We then proceeded to insert the 110 mm length hip lag screw over our guide pin. This was inserted by hand until we were within a few millimeters of the subchondral bone of the femoral head in both AP an d lateral projections. Next, we then inserted our compression screw, which was just inferior of our h ip lag screw. This was advanced, with the last 10 mm of compression obtained using a hand screwdriver . Fluoroscopic views showed again compression of our fracture and satisfactory alignment of the fract ure. It should be noted again that we did have our assistant corporate secretary apply anterior pressure on the proximal fragment as we were preparing the proximal femur and inserting our dual hip lag screw. At the end of our insertion of our dual hip lag screw, x-ray showed again adequate placement of our hardware, as we ll as maintenance of the reduction of our hip fracture in both AP and lateral projection after the Co bb elevator had been removed from the operative site. Satisfied with this, we then directed our atten tion distally. Repositioning our fluoroscopic machine and abducting the left lower extremity to allow for proper vis ualization of the distal end of inserted nail, we adjusted the apparatus until we were able to get ne phuc full circles in the distal end of our nail in lateral projection. Making the appropriate skin in cision, we then placed a drill point in the center of our proximal hole in the IM nail. We then drill ed the lateral and medial femoral cortex with this drill. Fluoroscopic view confirmed that we were wi thin the proximal nail of our distal locking holes of our nail. Satisfied with this, direct measuring guide was used to determine the proper length of our distal locking screw. The selected distal locki ng screw was then inserted manually after removing our drill point. Fluoroscopic views in AP and late ral projection confirmed good bicortical contact of our screw and that it was within the hole in the distal end of our nail. In a likewise fashion and placed a second distal interlocking screw in the sa me technique through the oval hole in the distal end of the nail. Again, fluoroscopic views in AP and lateral projection showed the distal locking screws to have bicortical contacts, as well as they wer e positioned within the distal end of our nail. We then took permanent pictures at the fracture site and at the hip, showing satisfactory reduction of our fracture and satisfactory placement of our hard chaves. We then irrigated the wounds out thoroughly with saline. We then closed the wound in layers using fig [id number] stitches of 0 Vicryl to approximate the fascia dae layer; simple stitches of 2-0 Vicryl to approximate the subcutaneous tissues proximally and at the lateral incision sites. We then closed the wound using skin christos, 60 mL of a 0.25% Marcaine with epinephrine then used probe to administ er local anesthetic to the surgical sites. We then dressed the wound using Xeroform gauze, fluffs, AB D, and foam tape. Patient transferred off the fracture table and taken to the ICU in satisfactory con dition. ESTIMATED BLOOD LOSS: 1800 mL. REPLACEMENT: Normal saline 1000 mL; 4300 mL of lactated Ringer's; 3 units of packed cells. INTRAOPERATIVE COMPLICATIONS: The patient had more blood loss anticipated, though there were no activ e bleeders either during the reduction or during the fixation of her fracture. She did have a steady ooze, though she only had 1 brief episode where she was hypotensive, but this responded well with flu id and blood transfusions. She was also maintaining urine output throughout the procedure as well. PLAN: The patient will be observed overnight in the intensive care unit. We will check on her level o f resuscitation while she is there. At the advice of Medicine, we will also give her 2 units of fresh frozen plasma. Her postoperative physical therapy will include the walker ambulation, weightbearing as tolerated on this left lower extremity when she is able. JOB #: [id number] EXT JOB #:[id number]
[2017-03-11] MEDS ORDERED: SODIUM CHLORIDE FLUSH 0.9% 10 ML SYRINGE IVP SCH (14:00)
--- NOTE | 2017-03-11 14:40 | XRAY Report ---
ADDENDUM: IN SURGERY VIEWS DEMONSTRATING INTERNAL FIXATION OF A PROXIMAL LEFT FEMORAL SHAFT FRACTURE : ADDENDUM: Fluoro time for the in surgery exam with the mobile C-arm was 2.39 minutes. END OF ADDENDUM
[2017-03-11] MEDS: FAMOTIDINE 20 MG/50 ML 50 ML IV SCH (14:45)
[2017-03-11] MEDS: POLYETHYLENE GLYCOL 3350 17 GM PACKET PO SCH (14:45)
[2017-03-11] MEDS: SODIUM CHLORIDE 0.9% 1,000 ML IV SCH ×2 (15:19→22:46)
[2017-03-11] MEDS: ceFAZolin 2 GM/50 ML 50 ML IV SCH (16:08)
[2017-03-11 16:40] LABS: BASOPHILS % (AUTO) 0.1 %; HCT - HEMATOCRIT 31.3 % (37.0-47.0); HGB - HEMOGLOBIN 10.5 g/dL (12.0-16.0); LYMPHOCYTES # (AUTO) 0.6 10^3/uL (1.5-3.5); LYMPHOCYTES % (AUTO) 4.1 %; MEAN CORPUSCULAR HEMOGLOBIN 30.8 pg (27.0-31.0); MEAN CORPUSCULAR HGB CONC 33.7 g/dL (32.0-36.0); MEAN CORPUSCULAR VOLUME 91.5 fL (81.0-99.0); MEAN PLATELET VOLUME 7.9 fL (7.9-10.8); MONOCYTES # (AUTO) 1.1 10^3/uL (0.0-1.0); MONOCYTES % (AUTO) 7.7 %; NEUTROPHILS # (AUTO) 12.7 10^3/uL (1.5-6.6); NEUTROPHILS % (AUTO) 88.1 %; RED BLOOD COUNT 3.42 10^6/uL (4.20-5.40); RED CELL DISTRIBUTION WIDTH 15.2 % (12.0-15.0); UNCORRECTED WHITE BLOOD COUNT 14.4 x10^3/uL; WHITE BLOOD COUNT 14.4 x10^3/uL (4.8-10.8)
[2017-03-11] MEDS: ACETAMINOPHEN 325 MG TABLET PO PRN (19:33)
[2017-03-12] MEDS: ceFAZolin 2 GM/50 ML 50 ML IV SCH (00:05)
[2017-03-12] MEDS: ATENOLOL 25 MG TABLET PO SCH ×2 (00:15→08:59)
[2017-03-12 01:01] LABS: ALBUMIN/GLOBULIN RATIO 1.3 (1.0-2.2); BILIRUBIN,TOTAL < 0.2 mg/dL (0.2-1.0); BUN - BLOOD UREA NITROGEN 20 mg/dL (6-20); CALCIUM 8.1 mg/dL (8.5-10.3); CARBON DIOXIDE - CO2 24 mmol/L (21-32); CHLORIDE 107 mmol/L (101-111); GFR - MDRD 53 (>89); GLUCOSE 130 mg/dL (70-100); MAGNESIUM 1.5 mg/dL (1.7-2.8); POTASSIUM 4.4 mmol/L (3.5-5.0); SODIUM 137 mmol/L (135-145); TOTAL PROTEIN 4.9 g/dL (6.7-8.2)
[2017-03-12] MEDS ORDERED: MAGNESIUM SULFATE 2 GRAM 50 ML IV SCH (01:08)
--- NOTE | 2017-03-12 08:07 | PROVIDER PROGRESS NOTE ---
Assessment/Plan - Problem List (1) Pulmonary mass Assessment/Plan: No new information on this presently. WIll need followup outpatient Bx. (2) Subtrochanteric fracture of left femur Qualifiers: Encounter type: initial encounter Fracture type: closed Qualified Code(s) : S72.22XA - Displaced subtrochanteric fracture of left femur, initial encounter for closed fracture Assessment/Plan: She has been to surgery and had ORIF. She had larger blood loss than usual. She got 3 units of blood in surgery. Await the am H/H Pain is controlled. She is eating breakfast. Her memory is poor. Was on O2 lst night now on room air. Will have PT see her today. - Current Meds Current Meds: Current Medications Generic Name Dose Route Start Last Admin Trade Name Freq PRN Reason Stop Dose Admin Acetaminophen 650 - 975 mg 03/11/17 11:56 03/11/17 19:33 Tylenol PO 975 mg Q4HR PRN Administration PAIN Atenolol 25 mg 03/12/17 00:00 03/12/17 00:15 Tenormin PO 25 mg DAILY JANE Administration Famotidine 50 mls @ 100 mls/hr 03/11/17 09:00 03/11/17 14:45 Pepcid 20 Mg/50 Ml IV Not Given DAILY JANE Sodium Chloride 1,000 mls @ 100 mls/hr 03/11/17 12:00 03/11/17 22:46 Normal Saline 0.9% IV 100 mls/hr .Q10H JANE Administration Ketorolac Tromethamine 15 mg 03/10/17 21:36 03/10/17 22:48 Toradol Inj IVP 03/15/17 21:35 15 mg Q6HR PRN Administration PAIN Polyethylene Glycol 17 gm 03/11/17 09:00 03/11/17 14:45 Miralax PO Not Given DAILY JANE - Lab Result Fish Bone Diagrams: 03/11/17 16:34 03/12/17 00:45 - Additional Planning My Orders: My Active Orders 03/11/17 09:29 Transfuse RBCs Leukoreduced [RC] ONCE 03/11/17 12:16 Cultural Swab [RC] .ONCE 03/12/17 05:00 COMPREHENSIVE METABOLIC PANEL [CHEM] DAILYLAB 03/13/17 05:00 COMPREHENSIVE METABOLIC PANEL [CHEM] DAILYLAB MAGNESIUM [CHEM] DAILYLAB 03/14/17 05:00 COMPREHENSIVE METABOLIC PANEL [CHEM] DAILYLAB Subjective - Subjective Patient Reports: Feeling Better, Resting Comfortably Nursing Reports: Confused, Pain Objective Vital Signs: Vital Signs - 24 hr 03/11/17 03/11/17 03/11/17 12:00 12:10 12:15 Temperature Heart Rate [ Brachial] Respiratory Rate Blood Pressure [Right Brachial artery] O2 Saturation 100 100 98 03/11/17 03/11/17 03/11/17 12:20 12:26 12:27 Temperature 36.4 C L Heart Rate [ 68 Brachial] Respiratory 16 Rate Blood Pressure 110/81 H [Right Brachial artery] O2 Saturation 100 100 100 03/11/17 03/11/17 03/11/17 12:33 13:17 14:30 Temperature 36.4 C L Heart Rate [ 73 85 Brachial] Respiratory 18 20 Rate Blood Pressure 127/61 153/84 H [Right Brachial artery] O2 Saturation 100 100 03/11/17 03/11/17 03/11/17 15:00 17:00 18:00 Temperature 37.5 C Heart Rate [ 88 94 91 Brachial] Respiratory 19 18 17 Rate Blood Pressure 162/103 H 133/103 H 150/75 H [Right Brachial artery] O2 Saturation 99 03/11/17 03/11/17 03/11/17 19:09 20:00 21:00 Temperature 36.6 C Heart Rate [ 88 78 80 Brachial] Respiratory 19 20 17 Rate Blood Pressure 148/61 H 144/77 H 147/62 H [Right Brachial artery] O2 Saturation 94 94 99 03/11/17 03/11/17 03/12/17 22:00 23:00 00:00 Temperature 36.4 C L Heart Rate [ 78 75 70 Brachial] Respiratory 16 18 20 Rate Blood Pressure 147/62 H 138/65 H [Right Brachial artery] O2 Saturation 100 99 100 03/12/17 03/12/17 03/12/17 01:00 02:00 03:00 Temperature Heart Rate [ 62 64 70 Brachial] Respiratory 16 14 16 Rate Blood Pressure 144/64 H 121/54 L 131/58 H [Right Brachial artery] O2 Saturation 99 99 98 03/12/17 03/12/17 03/12/17 04:00 05:00 06:00 Temperature 36.2 C L Heart Rate [ 64 59 L 63 Brachial] Respiratory 18 14 18 Rate Blood Pressure 113/72 139/71 H 129/61 [Right Brachial artery] O2 Saturation 98 97 99 03/12/17 06:51 Temperature Heart Rate [ 72 Brachial] Respiratory 16 Rate Blood Pressure 129/61 [Right Brachial artery] O2 Saturation 98 Oxygen O2 Source Nasal cannula I&O (Last 24 Hrs): Intake and Output Totals x24h 03/10/17 03/11/17 03/12/17 23:59 23:59 23:59 Intake Total 2230 825 Output Total 225 730 710 Balance -225 1500 115 General: Alert, Cooperative HEENT: PERRLA, EOMI Neck: No JVD, No thyromegaly Neuro: Alert, Non Focal Cardiovascular: Regular rate, No murmurs Respiratory: Chest non-tender, No respiratory distress, Breath sounds nml Abdomen: Soft, No tenderness Extremities: No clubbing, No cyanosis Skin: No rashes, No breakdown - Results Results: Laboratory Results WBC 14.4 x10^3/uL (4.8-10.8) H 03/11/17 16:34 RBC 3.42 10^6/uL (4.20-5.40) L 03/11/17 16:34 Hgb 10.5 g/dL (12.0-16.0) L 03/11/17 16:34 Hct 31.3 % (37.0-47.0) L 03/11/17 16:34 MCV 91.5 fL (81.0-99.0) 03/11/17 16:34 MCH 30.8 pg (27.0-31.0) 03/11/17 16:34 MCHC 33.7 g/dL (32.0-36.0) 03/11/17 16:34 RDW 15.2 % (12.0-15.0) H 03/11/17 16:34 Plt Count 191 10^3/uL (130-450) 03/11/17 16:34 MPV 7.9 fL (7.9-10.8) 03/11/17 16:34 Neut # 12.7 10^3/uL (1.5-6.6) H 03/11/17 16:34 Lymph # 0.6 10^3/uL (1.5-3.5) L 03/11/17 16:34 [place] # 1.1 10^3/uL (0.0-1.0) H 03/11/17 16:34 Eos # 0.0 10^3/uL (0.0-0.7) 03/11/17 16:34 Baso # 0.0 10^3/uL (0.0-0.1) 03/11/17 16:34 Absolute Nucleated RBC 0.00 x10^3/uL 03/11/17 16:34 Nucleated RBCs 0.0 /100WBC 03/11/17 16:34 PT 11.8 secs (9.9-12.6) 03/10/17 19:32 INR 1.0 (0.8-1.2) 03/10/17 19:32 Sodium 137 mmol/L (135-145) 03/12/17 00:45 Potassium 4.4 mmol/L (3.5-5.0) 03/12/17 00:45 Chloride 107 mmol/L (101-111) 03/12/17 00:45 Carbon Dioxide 24 mmol/L (21-32) 03/12/17 00:45 Anion Gap 6.0 (6-13) 03/12/17 00:45 BUN 20 mg/dL (6-20) 03/12/17 00:45 Creatinine 1.0 mg/dL (0.4-1.0) 03/12/17 00:45 Estimated GFR (MDRD) 53 (>89) L 03/12/17 00:45 Glucose 130 mg/dL (70-100) H 03/12/17 00:45 Calcium 8.1 mg/dL (8.5-10.3) L 03/12/17 00:45 Phosphorus 3.0 mg/dL (2.5-4.6) 03/12/17 00:45 Magnesium 1.5 mg/dL (1.7-2.8) L 03/12/17 00:45 Total Bilirubin < 0.2 mg/dL (0.2-1.0) L 03/12/17 00:45 AST 26 IU/L (10-42) 03/12/17 00:45 ALT 15 IU/L (10-60) 03/12/17 00:45 Alkaline Phosphatase 64 IU/L (42-121) 03/12/17 00:45 Troponin I < 0.04 ng/mL (<0.49) 03/11/17 05:51 B-Natriuretic Peptide 94 pg/mL (5-100) 03/11/17 05:51 Total Protein 4.9 g/dL (6.7-8.2) L 03/12/17 00:45 Albumin 2.8 g/dL (3.2-5.5) L 03/12/17 00:45 Globulin 2.1 g/dL (2.1-4.2) 03/12/17 00:45 Albumin/Globulin Ratio 1.3 (1.0-2.2) 03/12/17 00:45 Lipase 44 U/L (22-51) 03/10/17 19:32 Urine Color YELLOW 03/11/17 01:10 Urine Clarity CLEAR (CLEAR) 03/11/17 01:10 Urine pH 6.0 PH (5.0-7.5) 03/11/17 01:10 Ur Specific [place] 1.015 (1.002-1.030) 03/11/17 01:10 Urine Protein NEGATIVE mg/dL (NEGATIVE) 03/11/17 01:10 Urine Glucose (UA) NEGATIVE mg/dL (NEGATIVE) 03/11/17 01:10 Urine Ketones NEGATIVE mg/dL (NEGATIVE) 03/11/17 01:10 Urine Occult Blood NEGATIVE (NEGATIVE) 03/11/17 01:10 Urine Nitrite NEGATIVE (NEGATIVE) 03/11/17 01:10 Urine Bilirubin NEGATIVE (NEGATIVE) 03/11/17 01:10 Urine Urobilinogen 0.2 (NORMAL) E.U./dL (NORMAL) 03/11/17 01:10 Ur Leukocyte Esterase NEGATIVE (NEGATIVE) 03/11/17 01:10 Urine RBC 0-5 /HPF (0-5) 03/11/17 01:10 Urine WBC 0-3 /HPF (0-5) 03/11/17 01:10 Ur Squamous Epith Cells FEW Squamous (<= Few) 03/11/17 01:10 Urine Bacteria Rare /HPF (None Seen) 03/11/17 01:10 Urine Culture Comments NOT INDICATED 03/11/17 01:10 Blood Type A POSITIVE 03/10/17 19:32 Blood Type Recheck A POSITIVE 03/11/17 05:51 Antibody Screen NEGATIVE 03/10/17 19:32 Crossmatch IS Only See Detail 03/11/17 10:00
[2017-03-12] MEDS: ACETAMINOPHEN 325 MG TABLET PO PRN (08:10)
[2017-03-12 08:29] LABS: ALBUMIN/GLOBULIN RATIO 1.3 (1.0-2.2); BILIRUBIN,TOTAL 0.6 mg/dL (0.2-1.0); CALCIUM 8.3 mg/dL (8.5-10.3); CREATININE 0.9 mg/dL (0.4-1.0); POTASSIUM 4.8 mmol/L (3.5-5.0); TOTAL PROTEIN 5.1 g/dL (6.7-8.2)
[2017-03-12 08:31] LABS: BASOPHILS % (AUTO) 0.3 %; EOSINOPHILS % (AUTO) 0.1 %; HCT - HEMATOCRIT 25.1 % (37.0-47.0); HGB - HEMOGLOBIN 8.7 g/dL (12.0-16.0); MEAN CORPUSCULAR HEMOGLOBIN 31.8 pg (27.0-31.0); MEAN CORPUSCULAR HGB CONC 34.8 g/dL (32.0-36.0); MEAN CORPUSCULAR VOLUME 91.5 fL (81.0-99.0); MEAN PLATELET VOLUME 9.1 fL (7.9-10.8); MONOCYTES # (AUTO) 1.1 10^3/uL (0.0-1.0); MONOCYTES % (AUTO) 12.4 %; NEUTROPHILS # (AUTO) 6.5 10^3/uL (1.5-6.6); NEUTROPHILS % (AUTO) 75.2 %; RED BLOOD COUNT 2.75 10^6/uL (4.20-5.40); UNCORRECTED WHITE BLOOD COUNT 8.7 x10^3/uL; WHITE BLOOD COUNT 8.7 x10^3/uL (4.8-10.8)
[2017-03-12] MEDS: FAMOTIDINE 20 MG/50 ML 50 ML IV SCH (08:34)
[2017-03-12] MEDS: SODIUM CHLORIDE 0.9% 1,000 ML IV SCH ×3 (08:37→22:49)
[2017-03-12] MEDS: DONEPEZIL 5 MG TABLET PO SCH (08:59)
[2017-03-12] MEDS: ENOXAPARIN 40 MG/0.4 ML SYRINGE SUBQ SCH (09:00)
[2017-03-12] MEDS: oxyCOD/ACETAMIN 5 MG/325 MG TABLET PO PRN ×2 (09:50→14:38)
--- NOTE | 2017-03-12 11:58 | PROVIDER PROGRESS NOTE ---
Subjective - Prog Note Date Prog Note Date: 03/12/17 Prog Note Time: 11:55 - Subjective Pt reports feeling: Improved (Less left hip pain. No SOB or dizziness.) Objective - Vital Signs/Intake & Output Vital Signs: Vital Signs x48h Temp Pulse Resp BP Pulse Ox 03/12/17 08:00 37.4 C 67 14 137/65 H 98 03/12/17 06:51 72 16 129/61 98 03/12/17 06:00 63 18 129/61 99 03/12/17 05:00 59 L 14 139/71 H 97 03/12/17 04:00 36.2 C L 64 18 113/72 98 Intake & Output: Intake & Output 03/09/17 03/10/17 03/11/17 03/12/17 23:59 23:59 23:59 23:59 Intake Total 2230 1660 Output Total 755 543 4175 Balance -225 1500 325 - Lab Results Fish Bones: 03/12/17 08:10 03/12/17 08:10 Other Labs: Lab Results x24hrs 03/12/17 03/12/17 03/12/17 Range/Units 08:10 08:10 00:45 WBC 8.7 (4.8-10.8) x10^3/uL RBC 2.75 L (4.20-5.40) 10^6/uL Hgb 8.7 L (12.0-16.0) g/dL Hct 25.1 L (37.0-47.0) % MCV 91.5 (81.0-99.0) fL MCH 31.8 H (27.0-31.0) pg MCHC 34.8 (32.0-36.0) g/dL RDW 15.0 (12.0-15.0) % Plt Count 103 L (130-450) 10^3/uL MPV 9.1 (7.9-10.8) fL Neut # 6.5 (1.5-6.6) 10^3/uL Lymph # 1.0 L (1.5-3.5) 10^3/uL [place] # 1.1 H (0.0-1.0) 10^3/uL Eos # 0.0 (0.0-0.7) 10^3/uL Baso # 0.0 (0.0-0.1) 10^3/uL Absolute Nucleated RBC 0.00 x10^3/uL Nucleated RBCs 0.0 /100WBC Sodium 139 137 (135-145) mmol/L Potassium 4.8 4.4 (3.5-5.0) mmol/L Chloride 106 107 (101-111) mmol/L Carbon Dioxide 25 24 (21-32) mmol/L Anion Gap 8.0 6.0 (6-13) BUN 17 20 (6-20) mg/dL Creatinine 0.9 1.0 (0.4-1.0) mg/dL Estimated GFR (MDRD) 60 L 53 L (>89) Glucose 108 H 130 H (70-100) mg/dL Calcium 8.3 L 8.1 L (8.5-10.3) mg/dL Phosphorus (2.5-4.6) mg/dL Magnesium 1.5 L (1.7-2.8) mg/dL Total Bilirubin 0.6 < 0.2 L (0.2-1.0) mg/dL AST 34 26 (10-42) IU/L ALT 13 15 (10-60) IU/L Alkaline Phosphatase 66 64 (42-121) IU/L Total Protein 5.1 L 4.9 L (6.7-8.2) g/dL Albumin 2.9 L 2.8 L (3.2-5.5) g/dL Globulin 2.2 2.1 (2.1-4.2) g/dL Albumin/Globulin Ratio 1.3 1.3 (1.0-2.2) Blood Type Antibody Screen Crossmatch IS Only 03/12/17 03/11/17 03/11/17 Range/Units 00:45 16:34 10:00 WBC 14.4 H (4.8-10.8) x10^3/uL RBC 3.42 L (4.20-5.40) 10^6/uL Hgb 10.5 L (12.0-16.0) g/dL Hct 31.3 L (37.0-47.0) % MCV 91.5 (81.0-99.0) fL MCH 30.8 (27.0-31.0) pg MCHC 33.7 (32.0-36.0) g/dL RDW 15.2 H (12.0-15.0) % Plt Count 191 (130-450) 10^3/uL MPV 7.9 (7.9-10.8) fL Neut # 12.7 H (1.5-6.6) 10^3/uL Lymph # 0.6 L (1.5-3.5) 10^3/uL [place] # 1.1 H (0.0-1.0) 10^3/uL Eos # 0.0 (0.0-0.7) 10^3/uL Baso # 0.0 (0.0-0.1) 10^3/uL Absolute Nucleated RBC 0.00 x10^3/uL Nucleated RBCs 0.0 /100WBC Sodium (135-145) mmol/L Potassium (3.5-5.0) mmol/L Chloride (101-111) mmol/L Carbon Dioxide (21-32) mmol/L Anion Gap (6-13) BUN (6-20) mg/dL Creatinine (0.4-1.0) mg/dL Estimated GFR (MDRD) (>89) Glucose (70-100) mg/dL Calcium (8.5-10.3) mg/dL Phosphorus 3.0 (2.5-4.6) mg/dL Magnesium (1.7-2.8) mg/dL Total Bilirubin (0.2-1.0) mg/dL AST (10-42) IU/L ALT (10-60) IU/L Alkaline Phosphatase (42-121) IU/L Total Protein (6.7-8.2) g/dL Albumin (3.2-5.5) g/dL Globulin (2.1-4.2) g/dL Albumin/Globulin Ratio (1.0-2.2) Blood Type Cancelled Antibody Screen Cancelled Crossmatch IS Only See Detail 03/11/17 Range/Units 09:02 WBC (4.8-10.8) x10^3/uL RBC (4.20-5.40) 10^6/uL Hgb (12.0-16.0) g/dL Hct (37.0-47.0) % MCV (81.0-99.0) fL MCH (27.0-31.0) pg MCHC (32.0-36.0) g/dL RDW (12.0-15.0) % Plt Count (130-450) 10^3/uL MPV (7.9-10.8) fL Neut # (1.5-6.6) 10^3/uL Lymph # (1.5-3.5) 10^3/uL [place] # (0.0-1.0) 10^3/uL Eos # (0.0-0.7) 10^3/uL Baso # (0.0-0.1) 10^3/uL Absolute Nucleated RBC x10^3/uL Nucleated RBCs /100WBC Sodium (135-145) mmol/L Potassium (3.5-5.0) mmol/L Chloride (101-111) mmol/L Carbon Dioxide (21-32) mmol/L Anion Gap (6-13) BUN (6-20) mg/dL Creatinine (0.4-1.0) mg/dL Estimated GFR (MDRD) (>89) Glucose (70-100) mg/dL Calcium (8.5-10.3) mg/dL Phosphorus (2.5-4.6) mg/dL Magnesium (1.7-2.8) mg/dL Total Bilirubin (0.2-1.0) mg/dL AST (10-42) IU/L ALT (10-60) IU/L Alkaline Phosphatase (42-121) IU/L Total Protein (6.7-8.2) g/dL Albumin (3.2-5.5) g/dL Globulin (2.1-4.2) g/dL Albumin/Globulin Ratio (1.0-2.2) Blood Type Cancelled Antibody Screen Cancelled Crossmatch IS Only See Detail - Other Results/Comments Other Results/Comments: EXAM: Dressing intact. Mild pain with hip motion. MOves toes well. Sensation intact. Good cap filling Assessment/Plan - Problem List (1) Subtrochanteric fracture of left femur Impression: Satis post op PLAN: Mobilize as tolerated with PT as ordered. Asymptomatic while sitting upright in bed. Will watch Hdb/Hct for now. Qualifiers: Encounter type: initial encounter Fracture type: closed Qualified Code(s) : S72.22XA - Displaced subtrochanteric fracture of left femur, initial encounter for closed fracture
[2017-03-12] MEDS: POLYETHYLENE GLYCOL 3350 17 GM PACKET PO SCH (13:33)
[2017-03-12] MEDS: KETOROLAC 15 MG/ML VIAL IVP PRN (18:22)
[2017-03-12] MEDS: SODIUM CHLORIDE FLUSH 0.9% 10 ML SYRINGE IVP PRN (22:12)
[2017-03-13] MEDS: SODIUM CHLORIDE FLUSH 0.9% 10 ML SYRINGE IVP PRN (05:46)
[2017-03-13 06:06] LABS: ALBUMIN/GLOBULIN RATIO 1.2 (1.0-2.2); BILIRUBIN,TOTAL 0.8 mg/dL (0.2-1.0); POTASSIUM 4.1 mmol/L (3.5-5.0); TOTAL PROTEIN 5.2 g/dL (6.7-8.2)
[2017-03-13 06:31] LABS: HCT - HEMATOCRIT 23.4 % (37.0-47.0)
[2017-03-13] MEDS: POLYETHYLENE GLYCOL 3350 17 GM PACKET PO SCH (09:04)
[2017-03-13] MEDS: ENOXAPARIN 40 MG/0.4 ML SYRINGE SUBQ SCH (09:04)
[2017-03-13] MEDS: FAMOTIDINE 20 MG/50 ML 50 ML IV SCH (09:04)
[2017-03-13] MEDS: DONEPEZIL 5 MG TABLET PO SCH (09:05)
[2017-03-13] MEDS: ATENOLOL 25 MG TABLET PO SCH (09:05)
--- NOTE | 2017-03-13 10:05 | PROVIDER PROGRESS NOTE ---
Subjective - Prog Note Date Prog Note Date: 03/13/17 Prog Note Time: 10:02 - Subjective Pt reports feeling: Improved (Less pain but more tired. No SOB or dizziness) Objective - Vital Signs/Intake & Output Vital Signs: Vital Signs x48h Temp Pulse Resp BP Pulse Ox 03/13/17 09:00 37.0 C 81 18 129/73 94 03/13/17 04:45 37.2 C 78 18 125/74 95 Intake & Output: Intake & Output 03/10/17 03/11/17 03/12/17 03/13/17 23:59 23:59 23:59 23:59 Intake Total 2230 2247 250 Output Total 417 344 3038 600 Balance -225 1500 842 -350 - Lab Results Fish Bones: 03/13/17 05:30 03/13/17 05:30 Other Labs: Lab Results x24hrs 03/13/17 03/13/17 Range/Units 05:30 05:30 Hgb 8.0 L (12.0-16.0) g/dL Hct 23.4 L (37.0-47.0) % Sodium 138 (135-145) mmol/L Potassium 4.1 (3.5-5.0) mmol/L Chloride 108 (101-111) mmol/L Carbon Dioxide 26 (21-32) mmol/L Anion Gap 4.0 L (6-13) BUN 16 (6-20) mg/dL Creatinine 1.0 (0.4-1.0) mg/dL Estimated GFR (MDRD) 53 L (>89) Glucose 105 H (70-100) mg/dL Calcium 8.0 L (8.5-10.3) mg/dL Magnesium 2.0 (1.7-2.8) mg/dL Total Bilirubin 0.8 (0.2-1.0) mg/dL AST 29 (10-42) IU/L ALT 10 (10-60) IU/L Alkaline Phosphatase 66 (42-121) IU/L Total Protein 5.2 L (6.7-8.2) g/dL Albumin 2.8 L (3.2-5.5) g/dL Globulin 2.4 (2.1-4.2) g/dL Albumin/Globulin Ratio 1.2 (1.0-2.2) - Other Results/Comments Other Results/Comments: EXAM: Dressing intact. Mom carmener incision site. Mild pain with hip mmoyion. Moves toes well. Sensation intact. Good cap filling Assessment/Plan - Problem List (1) Subtrochanteric fracture of left femur Impression: Satis post op PLAN: Hgb /hct has stabilized. Somewhat tired; Vital sx ok. Consider transfusing 1-2 unit PRBC's due to symptoms. Mobilize as tolerated. Qualifiers: Encounter type: initial encounter Fracture type: closed Qualified Code(s) : S72.22XA - Displaced subtrochanteric fracture of left femur, initial encounter for closed fracture
[2017-03-13] MEDS: ACETAMINOPHEN 325 MG TABLET PO PRN (11:07)
[2017-03-13] MEDS: KETOROLAC 15 MG/ML VIAL IVP PRN ×2 (11:12→18:31)
--- NOTE | 2017-03-13 14:22 | PROVIDER PROGRESS NOTE ---
Assessment/Plan - Problem List (1) Pulmonary mass Assessment/Plan: No W/U at this time. (2) Subtrochanteric fracture of left femur Qualifiers: Encounter type: initial encounter Fracture type: closed Qualified Code(s) : S72.22XA - Displaced subtrochanteric fracture of left femur, initial encounter for closed fracture Assessment/Plan: Kendy is POD#2 She has had a further drop in her H/H She is getting up with PT used Walker to make a few steps. She is eating OK. Will Check H/H in am and give blood if needs - Current Meds Current Meds: Current Medications Generic Name Dose Route Start Last Admin Trade Name Freq PRN Reason Stop Dose Admin Acetaminophen 650 - 975 mg 03/11/17 11:56 03/13/17 11:07 Tylenol PO 975 mg Q4HR PRN Administration PAIN Atenolol 25 mg 03/12/17 00:00 03/13/17 09:05 Tenormin PO 25 mg DAILY JANE Administration Donepezil HCl 5 mg 03/12/17 09:00 03/13/17 09:05 Aricept PO 5 mg DAILY JANE Administration Enoxaparin Sodium 40 mg 03/12/17 09:00 03/13/17 09:04 Lovenox SUBQ 40 mg DAILY JANE Administration Famotidine 50 mls @ 100 mls/hr 03/11/17 09:00 03/13/17 09:04 Pepcid 20 Mg/50 Ml IV 100 mls/hr DAILY JANE Administration Sodium Chloride 1,000 mls @ 50 mls/hr 03/12/17 08:11 03/12/17 22:49 Normal Saline 0.9% IV 50 mls/hr .Q20H JANE Administration Ketorolac Tromethamine 15 mg 03/10/17 21:36 03/13/17 11:12 Toradol Inj IVP 03/15/17 21:35 15 mg Q6HR PRN Administration PAIN Oxycodone/Acetaminophen 1 tab 03/11/17 11:56 03/12/17 14:38 Percocet 5 Mg/325 Mg PO 1 tab Q4HR PRN Administration PAIN Polyethylene Glycol 17 gm 03/11/17 09:00 03/13/17 09:04 Miralax PO 17 gm DAILY JANE Administration Sodium Chloride 10 ml 03/11/17 11:56 03/13/17 05:46 Normal Saline Flush 0.9% IVP 10 ml PRN PRN Administration NEEDED PER PROVIDER ORDERS - Lab Result Fish Bone Diagrams: 03/13/17 05:30 03/13/17 05:30 - Additional Planning My Orders: My Active Orders 03/14/17 05:00 CBC - COMP BLD CT W/AUTO DIFF [HEME] DAILYLAB COMPREHENSIVE METABOLIC PANEL [CHEM] DAILYLAB 03/15/17 05:00 CBC - COMP BLD CT W/AUTO DIFF [HEME] DAILYLAB 03/16/17 05:00 CBC - COMP BLD CT W/AUTO DIFF [HEME] DAILYLAB Subjective - Subjective Patient Reports: Resting Comfortably, Pain Nursing Reports: Pain Objective Vital Signs: Vital Signs - 24 hr 03/12/17 03/12/17 03/12/17 14:50 16:20 16:53 Temperature 36.8 C Heart Rate [ 65 Brachial] Respiratory 18 Rate Blood Pressure 112/68 [Right Brachial artery] Blood Pressure 146/91 H 146/91 H [Sitting] Blood Pressure 147/67 H 147/67 H [Supine] O2 Saturation 94 03/12/17 03/13/17 03/13/17 20:15 00:01 04:45 Temperature 36.9 C 37.0 C 37.2 C Heart Rate [ 78 76 78 Brachial] Respiratory 18 20 18 Rate Blood Pressure 129/75 109/69 125/74 [Right Brachial artery] Blood Pressure [Sitting] Blood Pressure [Supine] O2 Saturation 96 98 95 03/13/17 03/13/17 09:00 13:52 Temperature 37.0 C 37.4 C Heart Rate [ 81 63 Brachial] Respiratory 18 20 Rate Blood Pressure 129/73 103/63 [Right Brachial artery] Blood Pressure [Sitting] Blood Pressure [Supine] O2 Saturation 94 94 Oxygen O2 Source Room air I&O (Last 24 Hrs): Intake and Output Totals x24h 03/11/17 03/12/17 03/13/17 23:59 23:59 23:59 Intake Total 2230 2247 610 Output Total 730 1405 1300 Balance 1500 842 -690 General: Alert, Cooperative HEENT: PERRLA Neck: No JVD, No thyromegaly Neuro: Alert, Oriented Times 3 Cardiovascular: Regular rate, No murmurs Respiratory: Chest non-tender, No respiratory distress Abdomen: Soft, No tenderness Extremities: No clubbing, No cyanosis Skin: No rashes, No breakdown - Results Results: Laboratory Results WBC 8.7 x10^3/uL (4.8-10.8) 03/12/17 08:10 RBC 2.75 10^6/uL (4.20-5.40) L 03/12/17 08:10 Hgb 8.0 g/dL (12.0-16.0) L 03/13/17 05:30 Hct 23.4 % (37.0-47.0) L 03/13/17 05:30 MCV 91.5 fL (81.0-99.0) 03/12/17 08:10 MCH 31.8 pg (27.0-31.0) H 03/12/17 08:10 MCHC 34.8 g/dL (32.0-36.0) 03/12/17 08:10 RDW 15.0 % (12.0-15.0) 03/12/17 08:10 Plt Count 103 10^3/uL (130-450) L 03/12/17 08:10 MPV 9.1 fL (7.9-10.8) 03/12/17 08:10 Neut # 6.5 10^3/uL (1.5-6.6) 03/12/17 08:10 Lymph # 1.0 10^3/uL (1.5-3.5) L 03/12/17 08:10 [place] # 1.1 10^3/uL (0.0-1.0) H 03/12/17 08:10 Eos # 0.0 10^3/uL (0.0-0.7) 03/12/17 08:10 Baso # 0.0 10^3/uL (0.0-0.1) 03/12/17 08:10 Absolute Nucleated RBC 0.00 x10^3/uL 03/12/17 08:10 Nucleated RBCs 0.0 /100WBC 03/12/17 08:10 PT 11.8 secs (9.9-12.6) 03/10/17 19:32 INR 1.0 (0.8-1.2) 03/10/17 19:32 Sodium 138 mmol/L (135-145) 03/13/17 05:30 Potassium 4.1 mmol/L (3.5-5.0) 03/13/17 05:30 Chloride 108 mmol/L (101-111) 03/13/17 05:30 Carbon Dioxide 26 mmol/L (21-32) 03/13/17 05:30 Anion Gap 4.0 (6-13) L 03/13/17 05:30 BUN 16 mg/dL (6-20) 03/13/17 05:30 Creatinine 1.0 mg/dL (0.4-1.0) 03/13/17 05:30 Estimated GFR (MDRD) 53 (>89) L 03/13/17 05:30 Glucose 105 mg/dL (70-100) H 03/13/17 05:30 Calcium 8.0 mg/dL (8.5-10.3) L 03/13/17 05:30 Phosphorus 3.0 mg/dL (2.5-4.6) 03/12/17 00:45 Magnesium 2.0 mg/dL (1.7-2.8) 03/13/17 05:30 Total Bilirubin 0.8 mg/dL (0.2-1.0) 03/13/17 05:30 AST 29 IU/L (10-42) 03/13/17 05:30 ALT 10 IU/L (10-60) 03/13/17 05:30 Alkaline Phosphatase 66 IU/L (42-121) 03/13/17 05:30 Troponin I < 0.04 ng/mL (<0.49) 03/11/17 05:51 B-Natriuretic Peptide 94 pg/mL (5-100) 03/11/17 05:51 Total Protein 5.2 g/dL (6.7-8.2) L 03/13/17 05:30 Albumin 2.8 g/dL (3.2-5.5) L 03/13/17 05:30 Globulin 2.4 g/dL (2.1-4.2) 03/13/17 05:30 Albumin/Globulin Ratio 1.2 (1.0-2.2) 03/13/17 05:30 Lipase 44 U/L (22-51) 03/10/17 19:32 Urine Color YELLOW 03/11/17 01:10 Urine Clarity CLEAR (CLEAR) 03/11/17 01:10 Urine pH 6.0 PH (5.0-7.5) 03/11/17 01:10 Ur Specific [place] 1.015 (1.002-1.030) 03/11/17 01:10 Urine Protein NEGATIVE mg/dL (NEGATIVE) 03/11/17 01:10 Urine Glucose (UA) NEGATIVE mg/dL (NEGATIVE) 03/11/17 01:10 Urine Ketones NEGATIVE mg/dL (NEGATIVE) 03/11/17 01:10 Urine Occult Blood NEGATIVE (NEGATIVE) 03/11/17 01:10 Urine Nitrite NEGATIVE (NEGATIVE) 03/11/17 01:10 Urine Bilirubin NEGATIVE (NEGATIVE) 03/11/17 01:10 Urine Urobilinogen 0.2 (NORMAL) E.U./dL (NORMAL) 03/11/17 01:10 Ur Leukocyte Esterase NEGATIVE (NEGATIVE) 03/11/17 01:10 Urine RBC 0-5 /HPF (0-5) 03/11/17 01:10 Urine WBC 0-3 /HPF (0-5) 03/11/17 01:10 Ur Squamous Epith Cells FEW Squamous (<= Few) 03/11/17 01:10 Urine Bacteria Rare /HPF (None Seen) 03/11/17 01:10 Urine Culture Comments NOT INDICATED 03/11/17 01:10 Blood Type A POSITIVE 03/10/17 19:32 Blood Type Recheck A POSITIVE 03/11/17 05:51 Antibody Screen NEGATIVE 03/10/17 19:32 Crossmatch IS Only See Detail 03/11/17 10:00
[2017-03-13] MEDS: oxyCOD/ACETAMIN 5 MG/325 MG TABLET PO PRN (16:17)
[2017-03-13] MEDS: SENNA 8.6 MG TABLET PO SCH (18:31)
[2017-03-13] MEDS: FAMOTIDINE 20 MG TABLET PO SCH (22:08)
[2017-03-13] MEDS: DOCUSATE SODIUM 100 MG CAPSULE PO SCH (22:08)
[2017-03-14] MEDS: SENNA 8.6 MG TABLET PO SCH ×3 (00:40→08:40)
[2017-03-14 05:12] LABS: BASOPHILS % (AUTO) 0.7 %; EOSINOPHILS # (AUTO) 0.1 10^3/uL (0.0-0.7); EOSINOPHILS % (AUTO) 2.4 %; HCT - HEMATOCRIT 22.4 % (37.0-47.0); HGB - HEMOGLOBIN 7.7 g/dL (12.0-16.0); LYMPHOCYTES # (AUTO) 0.7 10^3/uL (1.5-3.5); LYMPHOCYTES % (AUTO) 12.6 %; MEAN CORPUSCULAR HGB CONC 34.2 g/dL (32.0-36.0); MEAN CORPUSCULAR VOLUME 93.7 fL (81.0-99.0); MONOCYTES # (AUTO) 0.7 10^3/uL (0.0-1.0); MONOCYTES % (AUTO) 11.8 %; NEUTROPHILS # (AUTO) 4.3 10^3/uL (1.5-6.6); NEUTROPHILS % (AUTO) 72.5 %; RED BLOOD COUNT 2.39 10^6/uL (4.20-5.40); RED CELL DISTRIBUTION WIDTH 15.2 % (12.0-15.0); UNCORRECTED WHITE BLOOD COUNT 5.9 x10^3/uL; WHITE BLOOD COUNT 5.9 x10^3/uL (4.8-10.8)
[2017-03-14 05:24] LABS: ALBUMIN/GLOBULIN RATIO 0.9 (1.0-2.2); BILIRUBIN,TOTAL 0.8 mg/dL (0.2-1.0); BUN - BLOOD UREA NITROGEN 15 mg/dL (6-20); CALCIUM 8.2 mg/dL (8.5-10.3); CARBON DIOXIDE - CO2 25 mmol/L (21-32); CHLORIDE 110 mmol/L (101-111); CREATININE 0.9 mg/dL (0.4-1.0); GFR - MDRD 60 (>89); GLUCOSE 105 mg/dL (70-100); POTASSIUM 4.3 mmol/L (3.5-5.0); SODIUM 138 mmol/L (135-145); TOTAL PROTEIN 5.2 g/dL (6.7-8.2)
[2017-03-14] MEDS: oxyCOD/ACETAMIN 5 MG/325 MG TABLET PO PRN ×3 (06:09→14:41)
[2017-03-14] MEDS: POLYETHYLENE GLYCOL 3350 17 GM PACKET PO SCH (08:38)
[2017-03-14] MEDS: DONEPEZIL 5 MG TABLET PO SCH (08:39)
[2017-03-14] MEDS: ATENOLOL 25 MG TABLET PO SCH (08:39)
[2017-03-14] MEDS: DOCUSATE SODIUM 100 MG CAPSULE PO SCH (08:39)
[2017-03-14] MEDS: FAMOTIDINE 20 MG TABLET PO SCH (08:40)
[2017-03-14] MEDS: ENOXAPARIN 40 MG/0.4 ML SYRINGE SUBQ SCH (08:41)
[2017-03-14] MEDS: SODIUM CHLORIDE 0.9% 1,000 ML IV SCH (09:30)
--- NOTE | 2017-03-14 09:54 | PROVIDER PROGRESS NOTE ---
Subjective - Prog Note Date Prog Note Date: 03/14/17 Prog Note Time: 09:50 - Subjective Pt reports feeling: Improved (No new complaints. Sitting up in chair) Objective - Vital Signs/Intake & Output Vital Signs: Vital Signs x48h Temp Pulse Resp BP Pulse Ox 03/14/17 09:35 36.9 C 86 16 103/67 98 03/14/17 09:30 36.9 C 86 20 103/67 98 03/14/17 07:48 36.8 C 83 18 125/74 95 03/14/17 05:00 37.4 C 82 18 135/76 H 98 Intake & Output: Intake & Output 03/11/17 03/12/17 03/13/17 03/14/17 23:59 23:59 23:59 23:59 Intake Total 2230 2247 1580 741 Output Total 730 1405 1300 Balance 1500 842 280 741 - Lab Results Fish Bones: 03/14/17 05:00 03/14/17 05:00 Other Labs: Lab Results x24hrs 03/14/17 03/14/17 03/14/17 Range/Units 06:48 05:00 05:00 WBC 5.9 (4.8-10.8) x10^3/uL RBC 2.39 L (4.20-5.40) 10^6/uL Hgb 7.7 L (12.0-16.0) g/dL Hct 22.4 L (37.0-47.0) % MCV 93.7 (81.0-99.0) fL MCH 32.0 H (27.0-31.0) pg MCHC 34.2 (32.0-36.0) g/dL RDW 15.2 H (12.0-15.0) % Plt Count 133 (130-450) 10^3/uL MPV 8.0 (7.9-10.8) fL Neut # 4.3 (1.5-6.6) 10^3/uL Lymph # 0.7 L (1.5-3.5) 10^3/uL [place] # 0.7 (0.0-1.0) 10^3/uL Eos # 0.1 (0.0-0.7) 10^3/uL Baso # 0.0 (0.0-0.1) 10^3/uL Absolute Nucleated RBC 0.00 x10^3/uL Nucleated RBCs 0.0 /100WBC Sodium 138 (135-145) mmol/L Potassium 4.3 (3.5-5.0) mmol/L Chloride 110 (101-111) mmol/L Carbon Dioxide 25 (21-32) mmol/L Anion Gap 3.0 L (6-13) BUN 15 (6-20) mg/dL Creatinine 0.9 (0.4-1.0) mg/dL Estimated GFR (MDRD) 60 L (>89) Glucose 105 H (70-100) mg/dL Calcium 8.2 L (8.5-10.3) mg/dL Total Bilirubin 0.8 (0.2-1.0) mg/dL AST 32 (10-42) IU/L ALT < 10 L (10-60) IU/L Alkaline Phosphatase 67 (42-121) IU/L Total Protein 5.2 L (6.7-8.2) g/dL Albumin 2.5 L (3.2-5.5) g/dL Globulin 2.7 (2.1-4.2) g/dL Albumin/Globulin Ratio 0.9 L (1.0-2.2) Blood Type A POSITIVE Antibody Screen NEGATIVE Crossmatch IS Only See Detail 03/11/17 Range/Units 10:00 WBC (4.8-10.8) x10^3/uL RBC (4.20-5.40) 10^6/uL Hgb (12.0-16.0) g/dL Hct (37.0-47.0) % MCV (81.0-99.0) fL MCH (27.0-31.0) pg MCHC (32.0-36.0) g/dL RDW (12.0-15.0) % Plt Count (130-450) 10^3/uL MPV (7.9-10.8) fL Neut # (1.5-6.6) 10^3/uL Lymph # (1.5-3.5) 10^3/uL [place] # (0.0-1.0) 10^3/uL Eos # (0.0-0.7) 10^3/uL Baso # (0.0-0.1) 10^3/uL Absolute Nucleated RBC x10^3/uL Nucleated RBCs /100WBC Sodium (135-145) mmol/L Potassium (3.5-5.0) mmol/L Chloride (101-111) mmol/L Carbon Dioxide (21-32) mmol/L Anion Gap (6-13) BUN (6-20) mg/dL Creatinine (0.4-1.0) mg/dL Estimated GFR (MDRD) (>89) Glucose (70-100) mg/dL Calcium (8.5-10.3) mg/dL Total Bilirubin (0.2-1.0) mg/dL AST (10-42) IU/L ALT (10-60) IU/L Alkaline Phosphatase (42-121) IU/L Total Protein (6.7-8.2) g/dL Albumin (3.2-5.5) g/dL Globulin (2.1-4.2) g/dL Albumin/Globulin Ratio (1.0-2.2) Blood Type Antibody Screen Crossmatch IS Only See Detail - Other Results/Comments Other Results/Comments: EXAM: Sitting up in chair without problem. No pain with hip moyion. Moves toes well. Sensation intact. Good cap filling Assessment/Plan - Problem List (1) Subtrochanteric fracture of left femur Impression: Satis post op PLAN: Agree with transfusion today. Repeat H/H in AM. If stable should be able to transfer to SNF, if room available. Follow up with orthepedic clinic in 2 weeks for staple removal and new XR. Continue PT - walker ambulate - WBAT on left. Lovenox or Aspirin x 3-4 weeks due to limited mobility. Dr. Charles will be covering for orthopedic issues, beginning on 03/15. Qualifiers: Encounter type: initial encounter Fracture type: closed Qualified Code(s) : S72.22XA - Displaced subtrochanteric fracture of left femur, initial encounter for closed fracture
[2017-03-14 14:38] VITALS: BP 104/65
[2017-03-14] MEDS: SODIUM CHLORIDE FLUSH 0.9% 10 ML SYRINGE IVP PRN (14:41)
--- NOTE | 2017-03-14 18:25 | DISCHARGE SUMMARY ---
DATE OF ADMISSION: 03/10/2017 DATE OF DISCHARGE: 03/14/2017 PRIMARY CARE PHYSICIAN: Kan Taveras M.D. ADMISSION DIAGNOSES The patient's admission diagnoses are: 1. Subtrochanteric fracture of the left femur from a ground-level fall. 2. Pulmonary spiculated mass on the left side. 3. Mild hypokalemia. 4. Dehydration. 5. Anemia, mild. DISCHARGE DIAGNOSES The patient's discharge diagnoses are: 1. Subtrochanteric fracture of the left femur: Status post open reduction and internal fixation. 2. Pulmonary mass of the left lung, requiring outpatient diagnostics. 3. Hypokalemia: Resolved. 4. Dehydration: Resolved. 5. Anemia with intraoperative hemorrhage requiring 3 units of packed red cells and later 2 units befo re discharge. SPECIAL PROCEDURES She had a CT of the chest done, of which the impression was: 1. A spiculated nodule in the superior segment of the left lower lobe, with a small adjacent satellit e nodule. 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 Recommend tissue sampl ing. 2. Several tiny pulmonary nodules elsewhere, including the left lower lobe base and possibly the righ t middle lobe, indeterminate. 3. No adenopathy. 4. Moderate to large hiatal hernia. 5. Cholelithiasis. CONSULTATIONS: The patient's consultations included Lloyd Mcgarry M.D., Orthopedics (see consultation n ote and operative notes). HOSPITAL COURSE AND MANAGEMENT: The patient's presentation, emergency department evaluation, and hos pitalist plan, as well as orthopedic plan are well described in the history and physical. See a copy of the same. In summary, the patient came in after a ground level fall with severe pain in the left hip. She received medication, intravenous fluids, and potassium. The next morning, the patient rainer t to surgery and had the ORIF. That afternoon, she was able to stand at the bedside and was able to sit in a chair the following day, and had physical therapy. She had some bleeding during surgery and required 3 units of packed red cells intraoperatively, and 2 units on the day of discharge as the bl ood count had declined to a hemoglobin of 7 and hematocrit of 23. Otherwise, the patient's progress after surgery was satisfactory. The patient was prepared to be discharged to [facility] for rehabilitation. DISCHARGE PHYSICAL EXAMINATION VITAL SIGNS: On the patient's examination on the day of discharge, temperature was 36.7, 88, 104/65, 18, and room air saturation 96%. EYES: Extraocular movements are within normal limits. PERRL. Nonicteric. MOUTH AND THROAT: Moist mucous membranes. No other pathology noted in the mouth or pharynx. NECK: No lymphadenopathy. No thyromegaly. No bruits. No JVD. CHEST WALL: The patient's chest wall is nontender and symmetric. No breast exam was done. LUNGS: Clear, with good air movement. HEART: Regular sinus rhythm. No significant murmurs. ABDOMEN: The patient's abdomen has a thick abdominal wall. Soft and nontender. RECTAL: Exam not done. GENITAL: Exam not done. VASCULAR: On the patient's vascular exam, there are no pulses felt in the posterior tibial bilateral ly, but no cyanosis. Capillary refill is less than 2 seconds. NEUROLOGICAL: Cognitive intact. Cranial nerves intact. Motor intact. SKIN: No suspicious lesions or dermatitis noted on a limited exam. LABORATORY DATA: The patient's laboratory data reveals she has a white count of 5.9, 7.7 and 22 hemo globin and hematocrit, and the platelets were 133. Sodium 138, potassium 4.3, chloride 110, CO2 25, BUN 15, creatinine 0.9, glucose was 105, calcium was 8.2, and albumin was 2.5. Normal liver enzymes. DISPOSITION: The patient is discharged to a intermediate facility. Dr. Tomas, the [facility] Theatre Arts Professor, was called, and hand-off was given. TIME SPENT: The time spent in discharge activities, including collaboration with Case Management, Nu rsing, a family conference, and examination of the patient was 40 minutes. DISCHARGE CONDITION: The patient was examined on the day of discharge, as noted above. JOB #: [id number] EXT JOB #:[id number]
--- NOTE | 2017-04-08 14:26 | XRAY Report ---
[facility]: Fluoroscopy time only, no images submitted for interpretation. Fluoroscopy time 2 minutes, 39 seconds. ABDIAS
== END 2017-03-14 15:40 | DRG 481 ==
LOC: EDUNIT# → ED 18:57 → MS 21:30 → ICU 03-11 10:19 → MS 03-12 13:52
PROVIDERS: ADMIT Internal Medicine; ATTEND Internal Medicine
PROC: 30233N1 Transfusion of Nonautologous Red Blood Cells into Peripheral Vein, Percutaneous Approach (ICD-10-PCS; 2017-03-11)
PROC: 0QS706Z Reposition Left Upper Femur with Intramedullary Internal Fixation Device, Open Approach (ICD-10-PCS; principal; 2017-03-11 07:30)
DX: S72.22XA Displaced subtrochanteric fracture of left femur, initial encounter for closed fracture (principal); W01.0XXA Fall on same level from slipping, tripping and stumbling without subsequent striking against object, initial encounter; M96.810 Intraoperative hemorrhage and hematoma of a musculoskeletal structure complicating a musculoskeletal system procedure; I10 Essential (primary) hypertension; D62 Acute posthemorrhagic anemia; W18.09XA Striking against other object with subsequent fall, initial encounter; E87.6 Hypokalemia; E86.0 Dehydration; Y83.8 Other surgical procedures as the cause of abnormal reaction of the patient, or of later complication, without mention of misadventure at the time of the procedure; Y92.234 Operating room of hospital as the place of occurrence of the external cause; R91.8 Other nonspecific abnormal finding of lung field; I11.9 Hypertensive heart disease without heart failure; E66.9 Obesity, unspecified; Z96.653 Presence of artificial knee joint, bilateral; Z66 Do not resuscitate; Z85.3 Personal history of malignant neoplasm of breast; Z68.35 Body mass index [BMI] 35.0-35.9, adult; Z91.81 History of falling; M25.562 Pain in left knee
CPT/HCPCS: 36415; 51702; 71010; 71260; 80053; 81001; 83690; 83735; 83880; 84100; 84484; 85014; 85018; 85025; 85610; 86850; 86900; 86901; 86920; 87086; 87640; 93005; 96374; 96375; 96376; 99284; 99285

== ENCOUNTER 2017-03-27 06:30 | Outpatient (CLI) | payer MEDICAID, MEDICARE, OTHER ==
[2017-03-27 08:13] LABS: BASOPHILS # (AUTO) 0.1 10^3/uL (0.0-0.1); BASOPHILS % (AUTO) 1.2 %; EOSINOPHILS # (AUTO) 0.1 10^3/uL (0.0-0.7); HCT - HEMATOCRIT 29.5 % (37.0-47.0); HGB - HEMOGLOBIN 10.2 g/dL (12.0-16.0); LYMPHOCYTES # (AUTO) 0.9 10^3/uL (1.5-3.5); MEAN CORPUSCULAR HEMOGLOBIN 30.2 pg (27.0-31.0); MEAN CORPUSCULAR HGB CONC 34.4 g/dL (32.0-36.0); MEAN PLATELET VOLUME 8.4 fL (7.9-10.8); MONOCYTES # (AUTO) 0.6 10^3/uL (0.0-1.0); MONOCYTES % (AUTO) 10.1 %; NEUTROPHILS # (AUTO) 4.4 10^3/uL (1.5-6.6); NEUTROPHILS % (AUTO) 71.7 %; RED BLOOD COUNT 3.36 10^6/uL (4.20-5.40); RED CELL DISTRIBUTION WIDTH 14.8 % (12.0-15.0); UNCORRECTED WHITE BLOOD COUNT 6.1 x10^3/uL; WHITE BLOOD COUNT 6.1 x10^3/uL (4.8-10.8)
[2017-03-27 08:21] LABS: BILIRUBIN,TOTAL 0.7 mg/dL (0.2-1.0); BUN - BLOOD UREA NITROGEN 19 mg/dL (6-20); CALCIUM 8.8 mg/dL (8.5-10.3); CARBON DIOXIDE - CO2 27 mmol/L (21-32); CHLORIDE 102 mmol/L (101-111); GFR - MDRD 53 (>89); GLUCOSE 108 mg/dL (70-100); POTASSIUM 3.6 mmol/L (3.5-5.0); SODIUM 137 mmol/L (135-145); TOTAL PROTEIN 5.7 g/dL (6.7-8.2)
== END 2017-03-27 23:59 | disposition home or self-care (01) ==
LOC: LAB.R 06:30
DX: I10 Essential (primary) hypertension (principal); D64.9 Anemia, unspecified
CPT/HCPCS: 80053; 85025

== ENCOUNTER 2017-04-07 14:30 | Outpatient (CLI) | payer MEDICAID, MEDICARE, OTHER | END 2017-04-07 14:31 | disposition home or self-care (01) | LOC: LAB.R 14:30 | PROVIDERS: ATTEND Orthopaedic Surgery | DX: T81.4XXA Infection following a procedure, initial encounter (principal) | CPT/HCPCS: 87070; 87205 ==

== ENCOUNTER 2017-04-10 15:03 | Outpatient (CLI) | payer MEDICAID, MEDICARE, OTHER ==
[2017-04-10 18:22] LABS: BASOPHILS # (AUTO) 0.1 10^3/uL (0.0-0.1); EOSINOPHILS # (AUTO) 0.2 10^3/uL (0.0-0.7); EOSINOPHILS % (AUTO) 2.2 %; HCT - HEMATOCRIT 32.1 % (37.0-47.0); HGB - HEMOGLOBIN 10.5 g/dL (12.0-16.0); LYMPHOCYTES # (AUTO) 1.3 10^3/uL (1.5-3.5); MEAN CORPUSCULAR HEMOGLOBIN 28.8 pg (27.0-31.0); MEAN CORPUSCULAR HGB CONC 32.7 g/dL (32.0-36.0); MEAN PLATELET VOLUME 8.8 fL (7.9-10.8); MONOCYTES # (AUTO) 0.7 10^3/uL (0.0-1.0); MONOCYTES % (AUTO) 9.4 %; NEUTROPHILS # (AUTO) 5.2 10^3/uL (1.5-6.6); NEUTROPHILS % (AUTO) 69.4 %; RED BLOOD COUNT 3.65 10^6/uL (4.20-5.40); UNCORRECTED WHITE BLOOD COUNT 7.4 x10^3/uL; WHITE BLOOD COUNT 7.4 x10^3/uL (4.8-10.8)
== END 2017-04-10 15:04 | disposition home or self-care (01) ==
LOC: LAB.R 15:03
DX: D64.9 Anemia, unspecified (principal); I10 Essential (primary) hypertension; S72.002D Fracture of unspecified part of neck of left femur, subsequent encounter for closed fracture with routine healing
CPT/HCPCS: 85025; 85651; 86140

== ENCOUNTER 2017-04-14 12:35 | Inpatient (IN) | payer MEDICARE, OTHER, MEDICAID ==
[2017-04-14] MEDS ORDERED: ACETAMINOPHEN 1,000 MG/100 ML 100 ML IV PRN (13:12)
[2017-04-14 15:04] LABS: ALBUMIN/GLOBULIN RATIO 0.9 (1.0-2.2); BILIRUBIN,TOTAL 0.4 mg/dL (0.2-1.0); CREATININE 1.9 mg/dL (0.4-1.0); POTASSIUM 4.1 mmol/L (3.5-5.0); TOTAL PROTEIN 7.6 g/dL (6.7-8.2)
[2017-04-14] MEDS: SODIUM CHLORIDE FLUSH 0.9% 10 ML SYRINGE IVP SCH ×2 (16:51→19:56)
[2017-04-14] MEDS: SODIUM CHLORIDE 0.9% 1,000 ML IV SCH (16:51)
--- NOTE | 2017-04-14 19:08 | CONSULTATION NOTE ---
Referring Provider Consult Date: 04/14/17 (See dictation: Med care during redo hip surgery. Needs past records- requested by Dr Prem Reed. 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 cancer Musculoskeletal: reports: Osteoarthritis - Past Surgical History Ortho: reports: Knee replacement Meds/Allgy - Home Medications Home Medications: Ambulatory Orders Medication Instructions Recorded Confirmed Aspirin [Aspirin EC] 81 mg PO DAILY 03/11/17 04/14/17 Atenolol 50 mg PO DAILY 03/11/17 04/14/17 Donepezil [Aricept] 5 mg PO DAILY 03/11/17 04/14/17 Furosemide 40 mg PO DAILY 03/11/17 04/14/17 amLODIPine [Norvasc] 5 mg PO DAILY 03/11/17 04/14/17 - Allergies Allergies/Adverse Reactions: Allergies Allergy/AdvReac Type Severity Reaction Status Date / Time Penicillins Allergy Unknown Verified 03/10/17 19:31 Exam - Vital Signs Vital Signs: Vital Signs x48h Temp Pulse Resp BP Pulse Ox 04/14/17 15:00 37.0 C 57 L 18 121/55 L 99 04/14/17 14:49 63 110/60 04/14/17 13:00 36.8 C 63 20 91/53 L 96 Conclusion/Plan - Lab Results Fish Bones: 04/14/17 14:29
[2017-04-15] MEDS: SODIUM CHLORIDE FLUSH 0.9% 10 ML SYRINGE IVP SCH ×3 (05:34→19:58)
[2017-04-15 06:48] LABS: BASOPHILS # (AUTO) 0.1 10^3/uL (0.0-0.1); BASOPHILS % (AUTO) 1.3 %; EOSINOPHILS # (AUTO) 0.1 10^3/uL (0.0-0.7); EOSINOPHILS % (AUTO) 1.9 %; HCT - HEMATOCRIT 31.8 % (37.0-47.0); HGB - HEMOGLOBIN 10.6 g/dL (12.0-16.0); LYMPHOCYTES # (AUTO) 0.8 10^3/uL (1.5-3.5); MEAN CORPUSCULAR HEMOGLOBIN 29.4 pg (27.0-31.0); MEAN CORPUSCULAR HGB CONC 33.3 g/dL (32.0-36.0); MEAN CORPUSCULAR VOLUME 88.2 fL (81.0-99.0); MEAN PLATELET VOLUME 8.6 fL (7.9-10.8); MONOCYTES # (AUTO) 0.7 10^3/uL (0.0-1.0); MONOCYTES % (AUTO) 14.5 %; NEUTROPHILS # (AUTO) 3.4 10^3/uL (1.5-6.6); NEUTROPHILS % (AUTO) 66.3 %; NUCLEATED RED BLOOD CELLS AUTO 0.1 /100WBC; RED BLOOD COUNT 3.61 10^6/uL (4.20-5.40); RED CELL DISTRIBUTION WIDTH 15.5 % (12.0-15.0); UNCORRECTED WHITE BLOOD COUNT 5.1 x10^3/uL; WHITE BLOOD COUNT 5.1 x10^3/uL (4.8-10.8)
[2017-04-15] MEDS: ENOXAPARIN 40 MG/0.4 ML SYRINGE SUBQ SCH (08:39)
[2017-04-15] MEDS: amLODIPine 5 MG TABLET PO SCH (08:39)
[2017-04-15] MEDS: FUROSEMIDE 40 MG TABLET PO SCH (08:39)
[2017-04-15] MEDS: ATENOLOL 25 MG TABLET PO SCH (08:39)
[2017-04-15] MEDS: DONEPEZIL 5 MG TABLET PO SCH (08:55)
[2017-04-15 13:39] LABS: BILIRUBIN,URINE NEGATIVE (NEGATIVE); PH,URINE 6.5 PH (5.0-7.5)
[2017-04-15 13:45] LABS: UA CHARGE (STRIP ONLY) YES; UR CULTURE IF IND NOT INDICATED
[2017-04-16] MEDS: SODIUM CHLORIDE 0.9% 1,000 ML IV SCH (01:12)
--- NOTE | 2017-04-16 04:49 | CONSULTATION NOTE ---
DATE OF CONSULTATION: 04/15/2017 00:00:00 LOCATION: Med/Surg, room 2308. REFERRING PHYSICIAN: Dr. Eric Reed. REASON FOR CONSULTATION: Medical management perioperatively. HISTORY OF PRESENT ILLNESS: This is a 77-year-old white female with a history of dementia, hypertensi on, and chronic leg edema. The patient was admitted here several weeks ago after a fall, sustaining a hip fracture and received hip surgery and was subsequently discharged to rehab. On a routine followu p at the clinic, she was noted by the orthopedic surgeon to have discharge from the surgical site and she required admission yesterday for plan for redo operation including debridement. The patient curr ently has no complaints, including no hip pain, but is minimally mobile. CURRENT MEDICATIONS 1. Tylenol p.r.n. 2. Aricept 5 mg p.o. daily. 3. Lasix 40 mg p.o. daily. 4. Amlodipine 5 mg p.o. daily. 5. Tenormin 50 mg p.o. daily. 6. P.r.n. sodium chloride flushes via heparin drip. 7. Lovenox 40 mg daily. ALLERGIES: NONE. REVIEW OF SYSTEMS: Reveals that she has chronic leg edema and she denies any other major cardiac, pul monary, neurologic, gastrointestinal complaints. FAMILY HISTORY: Noncontributory. SOCIAL HISTORY: She lives in an assisted living and over the past 1 week was in rehab after orthopedi c surgery. PHYSICAL EXAMINATION GENERAL: White female. She is in no distress. She is supine in bed with the head of bed elevated. VITAL SIGNS: Blood pressure 100-120/50-55. Heart rate is in the 50s and 60s. She is afebrile. HEENT: Unremarkable. Her oral mucosa is moist. Her neck shows no JVD in an 80 degree upright position . CHEST: Clear at the anterior bases. HEART: Sounds are distant. No audible murmurs. ABDOMEN: Soft, nontender. EXTREMITIES: Show trace ankle edema. There is no clubbing, cyanosis. LABORATORY: Labs from yesterday show a sodium of 134, potassium 4.1, BUN of 26, creatinine 1.9, alk p hos 142, CRP 5.7. White blood count 5.1, hemoglobin 10.6, platelet count normal. Sed rate 98. No x-ra y are available on this admission. From admission 1 month ago, her BUN was 26 with a creatinine of 1.9 and hemoglobin was 7.7 at dischar . IMPRESSION 1. History of hypertension, which is controlled. 2. History of dementia, which appears mild on exam. 3. History of hip fracture with subsequent infected prosthesis and purulent drainage requiring redo o rthopedic surgery, which is planned for 04/16/2017. I will follow along with you for any medical management. Thank you for allowing me to participate in the care of this patient. JOB #: [id number] EXT JOB #:[id number]
[2017-04-16] MEDS: SODIUM CHLORIDE FLUSH 0.9% 10 ML SYRINGE IVP SCH ×2 (06:28→13:07)
[2017-04-16] MEDS: ENOXAPARIN 40 MG/0.4 ML SYRINGE SUBQ SCH (10:13)
[2017-04-16] MEDS: amLODIPine 5 MG TABLET PO SCH (10:14)
[2017-04-16] MEDS: DONEPEZIL 5 MG TABLET PO SCH (10:14)
[2017-04-16] MEDS: ATENOLOL 25 MG TABLET PO SCH (10:14)
[2017-04-16] MEDS: FUROSEMIDE 40 MG TABLET PO SCH (10:14)
--- NOTE | 2017-04-16 11:58 | PROVIDER PROGRESS NOTE ---
Assessment/Plan - Problem List (1) Postoperative wound infection of left hip Qualifiers: Encounter type: subsequent encounter Qualified Code(s): T81.4XXD - Infection following a procedure, subsequent encounter; B99.9 - Unspecified infectious disease Assessment/Plan: Surgery was cancelled, per the RN, I confirmed this with the OR. Pt informed me that Dr Prem Reed saw her and is planning surgery on Wed04/19/17. Will restart diet. Will recheck labs and a pre-op CXR and confirm plan from Dr Prem Reed. If patient needs to await surgery, will do blood cultures if patient has a fever. May need to begin empiric antibiotics, will continue topical care as needed, and continue DVT prophylaxis. Pt denies pain at wound site or of hip and is not asking for pain meds. Addendum @ [id number]:I spoke to Dr Prem Reed. No iv antibiotics have been started because Pt does not have sepsis clinically, no fever and no elevated WBC. He reported that her wound culture, done in Clinic 3 days ago is not growing. Her purulent wound discharge is currently being treated with Silvadene dressing changes. He advises no iv or po antibiotics at this time, unless Pt has a change in clinical status. (2) Hypertension Qualifiers: Hypertension type: essential hypertension Qualified Code(s): I10 - Essential (primary) hypertension Assessment/Plan: BP stable. Will stop Lasix due to pre-renal azotemia and she was not on this at last admission home med list. Continue medical management and low salt diet. (3) Dementia Qualifiers: Alzheimer's disease onset: early-onset Dementia behavioral disturbance: without behavioral disturbance Assessment/Plan: Stable on treatment. - Current Meds Current Meds: Current Medications Generic Name Dose Route Start Last Admin Trade Name Freq PRN Reason Stop Dose Admin Amlodipine Besylate 5 mg 04/15/17 09:00 04/16/17 10:14 Norvasc PO 5 mg DAILY JANE Administration Atenolol 50 mg 04/15/17 09:00 04/16/17 10:14 Tenormin PO 50 mg DAILY JANE Administration Donepezil HCl 5 mg 04/15/17 09:00 04/16/17 10:14 Aricept PO 5 mg DAILY JANE Administration Enoxaparin Sodium 40 mg 04/15/17 09:00 07/28/17 10:13 Lovenox SUBQ 40 mg DAILY JANE Administration Furosemide 40 mg 04/15/17 09:00 04/16/17 10:14 Lasix PO 40 mg DAILY JANE Administration Sodium Chloride 1,000 mls @ 0 mls/hr 04/14/17 13:00 04/16/17 01:12 Normal Saline 0.9% IV 30 mls/hr .Q0M JANE Administration TKO Sodium Chloride 10 ml 04/14/17 14:00 04/16/17 06:28 Normal Saline Flush 0.9% IVP Not Given Q8HR JANE - Lab Result Fish Bone Diagrams: 04/16/17 13:03 04/16/17 13:03 - Additional Planning My Orders: My Active Orders 04/16/17 Lunch DIET [Regular Diet] [DIET] Objective Vital Signs: Vital Signs - 24 hr 04/15/17 04/15/17 04/16/17 16:32 18:00 00:50 Temperature 36.6 C 37.0 C 37.0 C Heart Rate [ 60 55 L 68 Brachial] Respiratory 18 18 17 Rate Blood Pressure 111/47 L 96/53 L 108/55 L [Right Brachial artery] O2 Saturation 98 97 92 04/16/17 04/16/17 05:04 07:29 Temperature 37.1 C 37.5 C Heart Rate [ 66 61 Brachial] Respiratory 16 18 Rate Blood Pressure 117/56 L 111/65 [Right Brachial artery] O2 Saturation 97 96 Oxygen O2 Source Room air I&O (Last 24 Hrs): Intake and Output Totals x24h 04/14/17 04/15/17 04/16/17 23:59 23:59 23:59 Intake Total 1305 147 Output Total 300 Balance 1005 147 - Results Results: Laboratory Results WBC 5.1 x10^3/uL (4.8-10.8) 04/15/17 06:33 RBC 3.61 10^6/uL (4.20-5.40) L 04/15/17 06:33 Hgb 10.6 g/dL (12.0-16.0) L 04/15/17 06:33 Hct 31.8 % (37.0-47.0) L 04/15/17 06:33 MCV 88.2 fL (81.0-99.0) 04/15/17 06:33 MCH 29.4 pg (27.0-31.0) 04/15/17 06:33 MCHC 33.3 g/dL (32.0-36.0) 04/15/17 06:33 RDW 15.5 % (12.0-15.0) H 04/15/17 06:33 Plt Count 299 10^3/uL (130-450) 04/15/17 06:33 MPV 8.6 fL (7.9-10.8) 04/15/17 06:33 Neut # 3.4 10^3/uL (1.5-6.6) 04/15/17 06:33 Lymph # 0.8 10^3/uL (1.5-3.5) L 04/15/17 06:33 [facility] # 0.7 10^3/uL (0.0-1.0) 04/15/17 06:33 Eos # 0.1 10^3/uL (0.0-0.7) 04/15/17 06:33 Baso # 0.1 10^3/uL (0.0-0.1) 04/15/17 06:33 Absolute Nucleated RBC 0.00 x10^3/uL 04/15/17 06:33 Nucleated RBCs 0.1 /100WBC 04/15/17 06:33 ESR 98 mm/Hr (0-30) H 04/14/17 14:29 Sodium 134 mmol/L (135-145) L 04/14/17 14:29 Potassium 4.1 mmol/L (3.5-5.0) 04/14/17 14:29 Chloride 99 mmol/L (101-111) L 04/14/17 14:29 Carbon Dioxide 23 mmol/L (21-32) 04/14/17 14:29 Anion Gap 12.0 (6-13) 04/14/17 14:29 BUN 26 mg/dL (6-20) H 04/14/17 14:29 Creatinine 1.9 mg/dL (0.4-1.0) H 04/14/17 14:29 Estimated GFR (MDRD) 26 (>89) L 04/14/17 14:29 Glucose 120 mg/dL (70-100) H 04/14/17 14:29 Calcium 10.0 mg/dL (8.5-10.3) 04/14/17 14:29 Total Bilirubin 0.4 mg/dL (0.2-1.0) 04/14/17 14:29 AST 15 IU/L (10-42) 04/14/17 14:29 ALT 10 IU/L (10-60) 04/14/17 14:29 Alkaline Phosphatase 142 IU/L (42-121) H 04/14/17 14:29 C-Reactive Protein 5.7 mg/dL (0-1.0) H 04/14/17 14:29 Total Protein 7.6 g/dL (6.7-8.2) 04/14/17 14:29 Albumin 3.6 g/dL (3.2-5.5) 04/14/17 14:29 Globulin 4.0 g/dL (2.1-4.2) 04/14/17 14:29 Albumin/Globulin Ratio 0.9 (1.0-2.2) L 04/14/17 14:29 Urine Color YELLOW 04/15/17 11:15 Urine Clarity CLEAR (CLEAR) 04/15/17 11:15 Urine pH 6.5 PH (5.0-7.5) 04/15/17 11:15 Ur Specific [place] 1.015 (1.002-1.030) 04/15/17 11:15 Urine Protein NEGATIVE mg/dL (NEGATIVE) 04/15/17 11:15 Urine Glucose (UA) NEGATIVE mg/dL (NEGATIVE) 04/15/17 11:15 Urine Ketones NEGATIVE mg/dL (NEGATIVE) 04/15/17 11:15 Urine Occult Blood NEGATIVE (NEGATIVE) 04/15/17 11:15 Urine Nitrite NEGATIVE (NEGATIVE) 04/15/17 11:15 Urine Bilirubin NEGATIVE (NEGATIVE) 04/15/17 11:15 Urine Urobilinogen 0.2 (NORMAL) E.U./dL (NORMAL) 04/15/17 11:15 Ur Leukocyte Esterase NEGATIVE (NEGATIVE) 04/15/17 11:15 Ur Microscopic Review NOT INDICATED 04/15/17 11:15 Urine Culture Comments NOT INDICATED 04/15/17 11:15 Blood Type A POSITIVE 04/14/17 14:29 Antibody Screen NEGATIVE 04/14/17 14:29 - Procedures Procedures: Procedures REPOSITION LEFT UPPER FEMUR WITH INTRAMED FIX, OPEN APPROACH (06/21/17) TRANSFUSE NONAUT RED BLOOD CELLS IN PERIPH VEIN, PERC (03/10/17)
--- NOTE | 2017-04-16 12:56 | XRAY Report ---
FRONTAL CHEST: 04/16/2017 CLINICAL INDICATION: Preop, hypertension. FINDINGS: Frontal view of the chest demonstrates a normal cardiac silhouette. A hiatal hernia is ag ain seen. Left upper lobe mass appears unchanged from CT of 03/10/2017. No effusion or pneumothorax is evident. IMPRESSION: PERSISTENT LEFT UPPER LOBE MASS. NO EVIDENCE OF ACUTE CARDIOPULMONARY DISEASE. JOB #: [id number] EXT JOB #:[id number]
[2017-04-16 13:21] LABS: BASOPHILS # (AUTO) 0.1 10^3/uL (0.0-0.1); BASOPHILS % (AUTO) 1.4 %; EOSINOPHILS # (AUTO) 0.1 10^3/uL (0.0-0.7); EOSINOPHILS % (AUTO) 1.2 %; HCT - HEMATOCRIT 31.2 % (37.0-47.0); HGB - HEMOGLOBIN 10.5 g/dL (12.0-16.0); LYMPHOCYTES # (AUTO) 0.8 10^3/uL (1.5-3.5); LYMPHOCYTES % (AUTO) 14.6 %; MEAN CORPUSCULAR HEMOGLOBIN 29.1 pg (27.0-31.0); MEAN CORPUSCULAR HGB CONC 33.6 g/dL (32.0-36.0); MEAN CORPUSCULAR VOLUME 86.7 fL (81.0-99.0); MEAN PLATELET VOLUME 8.6 fL (7.9-10.8); MONOCYTES # (AUTO) 0.6 10^3/uL (0.0-1.0); MONOCYTES % (AUTO) 10.2 %; NEUTROPHILS # (AUTO) 4.2 10^3/uL (1.5-6.6); NEUTROPHILS % (AUTO) 72.6 %; UNCORRECTED WHITE BLOOD COUNT 5.7 x10^3/uL; WHITE BLOOD COUNT 5.7 x10^3/uL (4.8-10.8)
[2017-04-16 13:37] LABS: CALCIUM 9.2 mg/dL (8.5-10.3); CREATININE 1.5 mg/dL (0.4-1.0); POTASSIUM 4.2 mmol/L (3.5-5.0)
--- NOTE | 2017-04-16 14:36 | PROVIDER PROGRESS NOTE ---
Subjective - Prog Note Date Prog Note Date: 04/16/17 Prog Note Time: 08:30 - Subjective Pt reports feeling: No change Subjective: Long discussion about delay in surgery until Wednesday for silicone tubing to arrive. Objective - Vital Signs/Intake & Output Reviewed Vital Signs: Yes Vital Signs: Vital Signs x48h Temp Pulse Resp BP Pulse Ox 04/16/17 07:29 37.5 C 61 18 111/65 96 Intake & Output: Intake & Output 04/13/17 04/14/17 04/15/17 04/16/17 23:59 23:59 23:59 23:59 Intake Total 1305 747 Output Total 300 Balance 1005 747 - Objective General Appearance: positive: No acute distress, Alert Eyes Bilateral: positive: Normal inspection ENT: positive: ENT inspection nml Neck: positive: Nml inspection Respiratory: positive: No respiratory distress, Breath sounds nml Cardiovascular: positive: Regular rate & rhythm Peripheral Pulses: 2+ Dorsalis pedis (R), 2+ Posterior tibialis (R) Abdomen: positive: Non-tender, Nml bowel sounds, No distention. negative: Guarding Skin: positive: Color nml, No rash, Warm, Dry Extremities: positive: Other (Mild tenderness at Left Thigh. Dressing with mild purulent drainage.). negative: Pedal edema, Calf tenderness, Sanjeev's sign/cords Neurologic/Psychiatric: positive: Oriented x3, Motor nml, Sensation nml, Mood/ affect nml - Lab Results Fish Bones: 04/16/17 13:03 04/16/17 13:03 Other Labs: Lab Results x24hrs 04/16/17 04/16/17 Range/Units 13:03 13:03 WBC 5.7 (4.8-10.8) x10^3/uL RBC 3.60 L (4.20-5.40) 10^6/uL Hgb 10.5 L (12.0-16.0) g/dL Hct 31.2 L (37.0-47.0) % MCV 86.7 (81.0-99.0) fL MCH 29.1 (27.0-31.0) pg MCHC 33.6 (32.0-36.0) g/dL RDW 15.0 (12.0-15.0) % Plt Count 305 (130-450) 10^3/uL MPV 8.6 (7.9-10.8) fL Neut # 4.2 (1.5-6.6) 10^3/uL Lymph # 0.8 L (1.5-3.5) 10^3/uL [place] # 0.6 (0.0-1.0) 10^3/uL Eos # 0.1 (0.0-0.7) 10^3/uL Baso # 0.1 (0.0-0.1) 10^3/uL Absolute Nucleated RBC 0.00 x10^3/uL Nucleated RBCs 0.0 /100WBC Sodium 135 (135-145) mmol/L Potassium 4.2 (3.5-5.0) mmol/L Chloride 104 (101-111) mmol/L Carbon Dioxide 22 (21-32) mmol/L Anion Gap 9.0 (6-13) BUN 21 H (6-20) mg/dL Creatinine 1.5 H (0.4-1.0) mg/dL Estimated GFR (MDRD) 33 L (>89) Glucose 128 H (70-100) mg/dL Calcium 9.2 (8.5-10.3) mg/dL Assessment/Plan - Problem List (1) Postoperative wound infection of left hip Impression: Stable. Surgery scheduled for Wednesday04/19/2017. Qualifiers: Encounter type: subsequent encounter Qualified Code(s): T81.4XXD - Infection following a procedure, subsequent encounter; B99.9 - Unspecified infectious disease (2) Subtrochanteric fracture of left femur Qualifiers: Encounter type: subsequent encounter Fracture type: closed Qualified Code (s): S72.22XG - Displaced subtrochanteric fracture of left femur, subsequent encounter for closed fracture with delayed healing
[2017-04-17] MEDS: SODIUM CHLORIDE FLUSH 0.9% 10 ML SYRINGE IVP SCH ×3 (06:24→23:57)
--- NOTE | 2017-04-17 07:57 | PROVIDER PROGRESS NOTE ---
Subjective - Prog Note Date Prog Note Date: 04/17/17 Prog Note Time: 07:57 - Subjective Subjective: no change. able to ambulate in hallway. eating. no severe pain. denies cp, sob, and same leg edema. Current Medications - Current Medications Current Medications: Active Medications Acetaminophen (Tylenol) 650 mg PO Q4HR PRN PRN Reason: Pain or Fever > 38C (100.4F) Last Admin: 04/17/17 08:09 Dose: 650 mg Amlodipine Besylate (Norvasc) 5 mg PO DAILY [facility] Last Admin: 04/17/17 10:04 Dose: 5 mg Atenolol (Tenormin) 50 mg PO DAILY [facility] Last Admin: 04/17/17 10:04 Dose: 50 mg Donepezil HCl (Aricept) 5 mg PO DAILY [facility] Last Admin: 04/17/17 10:04 Dose: 5 mg Enoxaparin Sodium (Lovenox) 40 mg SUBQ DAILY [facility] Last Admin: 04/17/17 10:04 Dose: 40 mg Sodium Chloride (Normal Saline 0.9%) 1,000 mls @ 0 mls/hr IV .Q0M [facility] PRN Reason: TKO Last Admin: 04/16/17 01:12 Dose: 30 mls/hr Acetaminophen (Ofirmev) 100 mls @ 400 mls/hr IV Q6HR PRN PRN Reason: PAIN Sodium Chloride (Normal Saline Flush 0.9%) 10 ml IVP PRN PRN PRN Reason: NEEDED PER PROVIDER ORDERS Sodium Chloride (Normal Saline Flush 0.9%) 10 ml IVP Q8HR [facility] Last Admin: 04/17/17 15:31 Dose: Not Given Aspirin [Aspirin EC] 81 mg PO DAILY 03/11/17 Atenolol 50 mg PO DAILY 03/11/17 Donepezil [Aricept] 5 mg PO DAILY 03/11/17 Furosemide 40 mg PO DAILY 03/11/17 amLODIPine [Norvasc] 5 mg PO DAILY 03/11/17 Objective - Vital Signs/Intake & Output Vital Signs: Vital Signs x48h Temp Pulse Resp BP Pulse Ox 04/17/17 06:00 36.7 C 60 16 116/66 94 Intake & Output: Intake & Output 04/14/17 04/15/17 04/16/17 04/17/17 23:59 23:59 23:59 23:59 Intake Total 1305 1047 Output Total 300 Balance 1005 1047 - Objective General Appearance: positive: No acute distress, Alert Eyes Bilateral: positive: PERRL ENT: positive: Pharynx nml Neck: positive: No JVD. negative: Stiff neck Respiratory: positive: Chest non-tender. negative: Wheezes, Rales, Rhonchi Cardiovascular: positive: Regular rate & rhythm. negative: Gallop/S4, Friction rub Abdomen: positive: Non-tender, No organomegaly, Nml bowel sounds, No distention Skin: positive: Warm Extremities: positive: Other (hip) Neurologic/Psychiatric: positive: Oriented x3, CN's nml (2-12) - Lab Results Fish Bones: 04/16/17 13:03 04/16/17 13:03 Other Labs: Lab Results x24hrs 04/16/17 04/16/17 Range/Units 13:03 13:03 WBC 5.7 (4.8-10.8) x10^3/uL RBC 3.60 L (4.20-5.40) 10^6/uL Hgb 10.5 L (12.0-16.0) g/dL Hct 31.2 L (37.0-47.0) % MCV 86.7 (81.0-99.0) fL MCH 29.1 (27.0-31.0) pg MCHC 33.6 (32.0-36.0) g/dL RDW 15.0 (12.0-15.0) % Plt Count 305 (130-450) 10^3/uL MPV 8.6 (7.9-10.8) fL Neut # 4.2 (1.5-6.6) 10^3/uL Lymph # 0.8 L (1.5-3.5) 10^3/uL [place] # 0.6 (0.0-1.0) 10^3/uL Eos # 0.1 (0.0-0.7) 10^3/uL Baso # 0.1 (0.0-0.1) 10^3/uL Absolute Nucleated RBC 0.00 x10^3/uL Nucleated RBCs 0.0 /100WBC Sodium 135 (135-145) mmol/L Potassium 4.2 (3.5-5.0) mmol/L Chloride 104 (101-111) mmol/L Carbon Dioxide 22 (21-32) mmol/L Anion Gap 9.0 (6-13) BUN 21 H (6-20) mg/dL Creatinine 1.5 H (0.4-1.0) mg/dL Estimated GFR (MDRD) 33 L (>89) Glucose 128 H (70-100) mg/dL Calcium 9.2 (8.5-10.3) mg/dL Assessment/Plan - Problem List (1) Hypertension Impression: systolic is 104 to 114. no symptoms as she walks. dc amlodinpine and continue betablocker. continue to monitor and adjust meds as needed. Qualifiers: Hypertension type: essential hypertension Qualified Code(s): I10 - Essential (primary) hypertension (2) Postoperative wound infection of left hip Impression: no fever and no elevated WBC. Dr. Reed would prefer NO antiobitcs until he gets into the wound at surgery. Only if she spikes a temp would he like abx. Plan is for MITZY with silicon covered nail with abx. on Wednesday, today is Wednesday. Qualifiers: Encounter type: subsequent encounter Qualified Code(s): T81.4XXD - Infection following a procedure, subsequent encounter; B99.9 - Unspecified infectious disease (3) Subtrochanteric fracture of left femur Impression: s/p open reduction and interTAN nailing 03/11. from here went to [facility]. From [facility] seen in office day of [place] and from Ortho office came here. ambulating well. pain is controlled. Qualifiers: Encounter type: subsequent encounter Fracture type: closed (4) Pulmonary mass Impression: spiculated on previous CT. Will need outpatient fu CT in 3 months.
[2017-04-17] MEDS: ACETAMINOPHEN 325 MG TABLET PO PRN (08:09)
[2017-04-17] MEDS: amLODIPine 5 MG TABLET PO SCH (10:04)
[2017-04-17] MEDS: DONEPEZIL 5 MG TABLET PO SCH (10:04)
[2017-04-17] MEDS: ENOXAPARIN 40 MG/0.4 ML SYRINGE SUBQ SCH (10:04)
[2017-04-17] MEDS: ATENOLOL 25 MG TABLET PO SCH (10:04)
[2017-04-18] MEDS: SODIUM CHLORIDE FLUSH 0.9% 10 ML SYRINGE IVP SCH ×3 (05:53→22:16)
--- NOTE | 2017-04-18 07:43 | PROVIDER PROGRESS NOTE ---
Subjective - Prog Note Date Prog Note Date: 04/18/17 Prog Note Time: 07:43 - Subjective Subjective: she is up an ambulating. denies cp, sob, leg edema. waiting for the silicon tube that would allow surgery tomorrow. Current Medications - Current Medications Current Medications: Active Medications Acetaminophen (Tylenol) 650 mg PO Q4HR PRN PRN Reason: Pain or Fever > 38C (100.4F) Last Admin: 04/17/17 08:09 Dose: 650 mg Atenolol (Tenormin) 50 mg PO DAILY [facility] Last Admin: 04/17/17 10:04 Dose: 50 mg Donepezil HCl (Aricept) 5 mg PO DAILY [facility] Last Admin: 04/17/17 10:04 Dose: 5 mg Enoxaparin Sodium (Lovenox) 40 mg SUBQ DAILY [facility] Last Admin: 04/17/17 10:04 Dose: 40 mg Sodium Chloride (Normal Saline 0.9%) 1,000 mls @ 0 mls/hr IV .Q0M [facility] PRN Reason: TKO Last Admin: 04/16/17 01:12 Dose: 30 mls/hr Acetaminophen (Ofirmev) 100 mls @ 400 mls/hr IV Q6HR PRN PRN Reason: PAIN Sodium Chloride (Normal Saline Flush 0.9%) 10 ml IVP PRN PRN PRN Reason: NEEDED PER PROVIDER ORDERS Sodium Chloride (Normal Saline Flush 0.9%) 10 ml IVP Q8HR [facility] Last Admin: 04/18/17 05:53 Dose: 10 ml Aspirin [Aspirin EC] 81 mg PO DAILY 03/11/17 Atenolol 50 mg PO DAILY 03/11/17 Donepezil [Aricept] 5 mg PO DAILY 03/11/17 Furosemide 40 mg PO DAILY 03/11/17 amLODIPine [Norvasc] 5 mg PO DAILY 03/11/17 Objective - Vital Signs/Intake & Output Reviewed Vital Signs: Yes Vital Signs: Vital Signs x48h Temp Pulse Resp BP Pulse Ox 04/17/17 23:59 36.7 C 64 16 103/64 98 Intake & Output: Intake & Output 04/15/17 04/16/17 04/17/17 04/18/17 23:59 23:59 23:59 23:59 Intake Total 1305 1047 1060 Output Total 300 Balance 1005 1047 1060 - Objective General Appearance: positive: No acute distress, Alert Eyes Bilateral: positive: PERRL ENT: positive: Pharynx nml Neck: positive: No JVD. negative: Stiff neck, Carotid bruit Respiratory: positive: Chest non-tender. negative: Wheezes, Rales, Rhonchi Cardiovascular: positive: Regular rate & rhythm. negative: Gallop/S4, Friction rub Abdomen: positive: Non-tender, No organomegaly, Nml bowel sounds, No distention Extremities: positive: Non-tender, Other (the only site of inflammation is the op site with drainage.). negative: Joint swelling Neurologic/Psychiatric: positive: Oriented x3, CN's nml (2-12), Motor nml - Lab Results Fish Bones: 04/16/17 13:03 04/16/17 13:03 Assessment/Plan - Problem List (1) Hypertension Impression: systolic is 96 to 104. no symptoms as she walks. dc'd amlodinpine and continued betablocker on 04/17. still with low BP Causes such as bleeding, infection considere but no fever, no elevation WBC and H/H stable. Give 500 cc Ns bolus and start IVF at midnight in anticipation of surgery tomorrow continue to monitor and adjust meds as needed. Qualifiers: Hypertension type: essential hypertension Qualified Code(s): I10 - Essential (primary) hypertension (2) Postoperative wound infection of left hip Impression: no fever and no elevated WBC. Dr. Reed would prefer NO antiobitcs until he gets into the wound at surgery. Only if she spikes a temp would he like abx. Plan is for [facility] with silicon covered nail with abx. on Wednesday, today is Wednesday. Qualifiers: Encounter type: subsequent encounter Qualified Code(s): T81.4XXD - Infection following a procedure, subsequent encounter; B99.9 - Unspecified infectious disease (3) Subtrochanteric fracture of left femur Impression: s/p open reduction and interTAN nailing 03/11. from here went to [facility]. From [facility] seen in office day of dc and from Ortho office came here. ambulating well. pain is controlled. Qualifiers: Encounter type: subsequent encounter Fracture type: closed (4) Pulmonary mass Impression: spiculated on previous CT. Will need outpatient fu CT in 3 months. Qualifiers: Hypertension type: essential hypertension Qualified Code(s): I10 - Essential (primary) hypertension
[2017-04-18] MEDS: ATENOLOL 25 MG TABLET PO SCH (10:31)
[2017-04-18] MEDS: ENOXAPARIN 40 MG/0.4 ML SYRINGE SUBQ SCH (10:32)
[2017-04-18] MEDS: DONEPEZIL 5 MG TABLET PO SCH (10:32)
[2017-04-18] MEDS ORDERED: SODIUM CHLORIDE 0.9% 500 ML IV ONE ×2 (15:48→16:30)
[2017-04-18] MEDS ORDERED: SODIUM CHLORIDE 0.9% 1,000 ML IV SCH (16:00)
[2017-04-18] MEDS: SODIUM CHLORIDE 0.9% 1,000 ML IV SCH (22:50)
[2017-04-19] MEDS: SODIUM CHLORIDE 0.9% 1,000 ML IV SCH (05:05)
[2017-04-19 05:58] LABS: HCT - HEMATOCRIT 30.6 % (37.0-47.0); HGB - HEMOGLOBIN 10.3 g/dL (12.0-16.0); MEAN CORPUSCULAR HEMOGLOBIN 29.3 pg (27.0-31.0); MEAN CORPUSCULAR HGB CONC 33.5 g/dL (32.0-36.0); MEAN CORPUSCULAR VOLUME 87.4 fL (81.0-99.0); MEAN PLATELET VOLUME 8.4 fL (7.9-10.8); RED BLOOD COUNT 3.5 10^6/uL (4.20-5.40); RED CELL DISTRIBUTION WIDTH 15.3 % (12.0-15.0); WHITE BLOOD COUNT 4.8 x10^3/uL (4.8-10.8)
[2017-04-19 06:02] LABS: INR 1.2 (0.8-1.2); PT - PROTHROMBIN TIME 13.5 secs (9.9-12.6)
[2017-04-19 06:11] LABS: ALBUMIN/GLOBULIN RATIO 0.8 (1.0-2.2); BILIRUBIN,TOTAL 0.5 mg/dL (0.2-1.0); BUN - BLOOD UREA NITROGEN 16 mg/dL (6-20); CALCIUM 8.9 mg/dL (8.5-10.3); CARBON DIOXIDE - CO2 23 mmol/L (21-32); CHLORIDE 107 mmol/L (101-111); CREATININE 0.9 mg/dL (0.4-1.0); GFR - MDRD 60 (>89); GLUCOSE 103 mg/dL (70-100); POTASSIUM 3.9 mmol/L (3.5-5.0); SODIUM 138 mmol/L (135-145); TOTAL PROTEIN 6.2 g/dL (6.7-8.2)
[2017-04-19] MEDS: SODIUM CHLORIDE FLUSH 0.9% 10 ML SYRINGE IVP SCH ×2 (07:34→15:01)
[2017-04-19] MEDS: ENOXAPARIN 40 MG/0.4 ML SYRINGE SUBQ SCH (08:17)
[2017-04-19] MEDS: DONEPEZIL 5 MG TABLET PO SCH (08:17)
[2017-04-19] MEDS: ATENOLOL 25 MG TABLET PO SCH (08:17)
--- NOTE | 2017-04-19 12:00 | PROVIDER PROGRESS NOTE ---
Subjective - Prog Note Date Prog Note Date: 04/19/17 Prog Note Time: 12:00 - Subjective Subjective: she denies cp, sob. eating walking in hallways. no new complaints. Current Medications - Current Medications Current Medications: Active Medications Acetaminophen (Tylenol) 650 mg PO Q4HR PRN PRN Reason: Pain or Fever > 38C (100.4F) Last Admin: 04/17/17 08:09 Dose: 650 mg Atenolol (Tenormin) 50 mg PO DAILY [facility] Last Admin: 04/19/17 08:17 Dose: 50 mg Donepezil HCl (Aricept) 5 mg PO DAILY [facility] Last Admin: 04/19/17 08:17 Dose: 5 mg Enoxaparin Sodium (Lovenox) 40 mg SUBQ DAILY [facility] Last Admin: 04/19/17 08:17 Dose: 40 mg Acetaminophen (Ofirmev) 100 mls @ 400 mls/hr IV Q6HR PRN PRN Reason: PAIN Sodium Chloride (Normal Saline 0.9%) 1,000 mls @ 83.333 mls/hr IV .Q12H [facility] Last Admin: 04/19/17 05:05 Dose: 83.333 mls/hr Sodium Chloride (Normal Saline Flush 0.9%) 10 ml IVP PRN PRN PRN Reason: NEEDED PER PROVIDER ORDERS Sodium Chloride (Normal Saline Flush 0.9%) 10 ml IVP Q8HR [facility] Last Admin: 04/19/17 07:34 Dose: Not Given Aspirin [Aspirin EC] 81 mg PO DAILY 03/11/17 Atenolol 50 mg PO DAILY 03/11/17 Donepezil [Aricept] 5 mg PO DAILY 03/11/17 Furosemide 40 mg PO DAILY 03/11/17 amLODIPine [Norvasc] 5 mg PO DAILY 03/11/17 Objective - Vital Signs/Intake & Output Vital Signs: Vital Signs x48h Temp Pulse Resp BP Pulse Ox 04/19/17 08:11 37.0 C 60 16 119/60 95 Intake & Output: Intake & Output 04/16/17 04/17/17 04/18/17 04/19/17 23:59 23:59 23:59 23:59 Intake Total 1047 8969 007 7892 Balance 1047 0734 879 5258 - Objective General Appearance: positive: No acute distress, Alert Eyes Bilateral: positive: PERRL ENT: positive: Pharynx nml Neck: negative: No JVD, Stiff neck, Carotid bruit Respiratory: positive: Chest non-tender. negative: Wheezes, Rales, Rhonchi Cardiovascular: positive: Regular rate & rhythm. negative: Gallop/S4, Friction rub Abdomen: positive: Non-tender, No organomegaly, Nml bowel sounds, No distention Skin: positive: Warm, Dry Extremities: positive: Non-tender (except for hip), Full ROM, No pedal edema, Other (draining from wound once bandage removed. minimal redness of skin. no fluctuence.) Neurologic/Psychiatric: positive: Oriented x3, CN's nml (2-12), Motor nml - Lab Results Fish Bones: 04/19/17 05:21 04/19/17 05:21 Other Labs: Lab Results x24hrs 04/19/17 04/19/17 04/19/17 Range/Units 05:21 05:21 05:21 WBC 4.8 (4.8-10.8) x10^3/uL RBC 3.50 L (4.20-5.40) 10^6/uL Hgb 10.3 L (12.0-16.0) g/dL Hct 30.6 L (37.0-47.0) % MCV 87.4 (81.0-99.0) fL MCH 29.3 (27.0-31.0) pg MCHC 33.5 (32.0-36.0) g/dL RDW 15.3 H (12.0-15.0) % Plt Count 259 (130-450) 10^3/uL MPV 8.4 (7.9-10.8) fL PT 13.5 H (9.9-12.6) secs INR 1.2 (0.8-1.2) Sodium 138 (135-145) mmol/L Potassium 3.9 (3.5-5.0) mmol/L Chloride 107 (101-111) mmol/L Carbon Dioxide 23 (21-32) mmol/L Anion Gap 8.0 (6-13) BUN 16 (6-20) mg/dL Creatinine 0.9 (0.4-1.0) mg/dL Estimated GFR (MDRD) 60 L (>89) Glucose 103 H (70-100) mg/dL Calcium 8.9 (8.5-10.3) mg/dL Ionized Calcium NO Total Bilirubin 0.5 (0.2-1.0) mg/dL AST 12 (10-42) IU/L ALT < 10 L (10-60) IU/L Alkaline Phosphatase 104 (42-121) IU/L Total Protein 6.2 L (6.7-8.2) g/dL Albumin 2.8 L (3.2-5.5) g/dL Globulin 3.4 (2.1-4.2) g/dL Albumin/Globulin Ratio 0.8 L (1.0-2.2) Assessment/Plan - Problem List (1) Hypertension Impression: systolic is up from the 90s it was yesterday. Now 110. no symptoms as she walks. dc'd amlodinpine and continued betablocker on 04/17. still had low BP Causes such as bleeding, infection considere but no fever, no elevation WBC and H/H stable. Given 500 cc Ns bolus yesterday and start IVF last midnight in anticipation of surgery today. BP improved. continue to monitor and adjust meds as needed. Qualifiers: Hypertension type: essential hypertension Qualified Code(s): I10 - Essential (primary) hypertension (2) Postoperative wound infection of left hip Impression: no fever and no elevated WBC. Dr. Reed would prefer NO antiobitcs until he gets into the wound at surgery. Only if she spikes a temp would he like abx. Plan is for MITZY with silicon covered nail with abx. today. Qualifiers: Encounter type: subsequent encounter Qualified Code(s): T81.4XXD - Infection following a procedure, subsequent encounter; B99.9 - Unspecified infectious disease (3) Subtrochanteric fracture of left femur Impression: s/p open reduction and interTAN nailing 03/11. from here went to [facility]. [place] [facility] seen in [place] of [place] and from Ortho office came here. ambulating well. pain is controlled. She wants to go home after surgery, but I couldn't promise her that. Will wait and see how she does after the above surgery after PT eval. Qualifiers: Encounter type: subsequent encounter Fracture type: closed (4) Pulmonary mass Impression: spiculated on previous CT. Will need outpatient fu CT in 3 months. Qualifiers: Hypertension type: essential hypertension Qualified Code(s): I10 - Essential (primary) hypertension
[2017-04-19] MEDS ORDERED: DEXAMETHASONE 4 MG/ML VIAL IVP ONE (16:51)
[2017-04-19] MEDS ORDERED: fentaNYL 100 MCG/2 ML VIAL IVP ONE (16:51)
[2017-04-19] MEDS ORDERED: ePHEDrine 50 MG/ML AMP IVP ONE (16:51)
[2017-04-19] MEDS ORDERED: PROPOFOL 200 MG/20 ML VIAL IVP ONE (16:51)
[2017-04-19] MEDS ORDERED: LIDOCAINE-MPF 2% 5 ML VIAL IM ONE (16:51)
[2017-04-19] MEDS ORDERED: MIDAZOLAM 2 MG/2 ML VIAL IVP ONE (16:51)
[2017-04-19] MEDS ORDERED: PHENYLEPHRINE 50 MG/5 ML VIAL IV ONE (16:51)
[2017-04-19] MEDS ORDERED: ONDANSETRON 4 MG/2 ML VIAL IVP ONE (16:51)
[2017-04-19] MEDS ORDERED: VANCOMYCIN 1 GM VIAL ONE (17:31)
[2017-04-19] MEDS ORDERED: VANCOMYCIN INJ 1 GM in SODIUM CHLORIDE 0.9% 250 ML IV ONE (17:31)
[2017-04-19] MEDS ORDERED: ceFAZolin 1 GM VIAL IR ONE (17:34)
[2017-04-19] MEDS ORDERED: LACTATED RINGERS 1,000 ML IV ONE ×4 (17:40→22:40)
[2017-04-19] MEDS ORDERED: HYDROmorphone 1 MG/ML SYRINGE IVP PRN (20:58)
[2017-04-19] MEDS ORDERED: traMADol 50 MG TABLET PO PRN (20:58)
[2017-04-19] MEDS ORDERED: oxyCODONE 5 MG TABLET PO PRN (20:58)
[2017-04-19] MEDS ORDERED: KETOROLAC 15 MG/ML VIAL IVP PRN (20:58)
--- NOTE | 2017-04-19 21:05 | OPERATIVE REPORT ---
Operative Report - General Admit Date: 04/14/17 Procedure Date: 04/19/17 Planned Procedure: 1. I&D Left Thigh. 2. Removal of IM Nail. 3. Placement of cement/antibiotic Pre-Op Diagnosis: Infected, malreduced Left Cephalomaedullary nail. Post Op Diagnosis: Same. - Procedure Note Primary Surgeon: Christiano Reed MD Anesthesia Provider: Krzysztof Goodwin CRNA Anesthesia Technique: General ET tube, Local Pathology: Cultures sent for Aer. Anaer., AFB, & fungal plus gram stain. Estimated Blood Loss (in cc): 1,400 Drain/Tube Type: Hemovac (Left thigh.) Complications: Intraoperative blood loss requiring two units of PRBCs. - Other Other Information/Narrative: Implants: [employer] Intertan 360 x 10 mm Cephalomedulary nail with proximal locking screws: 110 mm + 105 mm. Distal interlocking screw, 5.0 X 35 mm. [place] cement coating on nail with 3 gm Cefazolin + 3 gm Tobramycin. Fluids: 2700 mL LR Urine: 100 mL Leukoreduced O Negative Blood x 2 units: 1400 mL. Condition: Stable [facility]
[2017-04-19 21:47] LABS: HCT - HEMATOCRIT 34.1 % (37.0-47.0); HGB - HEMOGLOBIN 10.8 g/dL (12.0-16.0)
[2017-04-19] MEDS ORDERED: PIPERACILLIN/TAZOBACTAM 3.375 GM in SODIUM CHLORIDE 0.9% MINIBAG 100 ML IV SCH (22:00)
[2017-04-19] MEDS ORDERED: SODIUM CHLORIDE 0.9% 1,000 ML IV ONE (23:17)
[2017-04-19] MEDS ORDERED: CEFEPIME 2 GM in SODIUM CHLORIDE 0.9% MINIBAG 100 ML IV SCH ×4 (23:45)
[2017-04-19] MEDS ORDERED: VANCOMYCIN PER PHARMACY 1 GM in SODIUM CHLORIDE 0.9% 250 ML IV SCH (23:45)
[2017-04-20] MEDS: CEFEPIME 2 GM in SODIUM CHLORIDE 0.9% MINIBAG 100 ML IV SCH (01:44)
[2017-04-20] MEDS: SODIUM CHLORIDE 0.9% 1,000 ML IV SCH ×2 (01:45→20:50)
[2017-04-20] MEDS ORDERED: VANCOMYCIN INJ 1.25 GM in SODIUM CHLORIDE 0.9% 500 ML IV SCH (02:00)
[2017-04-20] MEDS: SODIUM CHLORIDE FLUSH 0.9% 10 ML SYRINGE IVP SCH ×3 (05:48→20:50)
[2017-04-20 07:08] LABS: HGB - HEMOGLOBIN 8.8 g/dL (12.0-16.0); MEAN CORPUSCULAR HEMOGLOBIN 28.3 pg (27.0-31.0); MEAN CORPUSCULAR HGB CONC 32.6 g/dL (32.0-36.0); MEAN CORPUSCULAR VOLUME 86.9 fL (81.0-99.0); MEAN PLATELET VOLUME 8.3 fL (7.9-10.8); RED BLOOD COUNT 3.11 10^6/uL (4.20-5.40); RED CELL DISTRIBUTION WIDTH 15.5 % (12.0-15.0); WHITE BLOOD COUNT 12.5 x10^3/uL (4.8-10.8)
[2017-04-20 07:14] LABS: INR 1.2 (0.8-1.2); PT - PROTHROMBIN TIME 13.5 secs (9.9-12.6)
[2017-04-20 07:19] LABS: ALBUMIN/GLOBULIN RATIO 0.8 (1.0-2.2); BILIRUBIN,TOTAL 0.8 mg/dL (0.2-1.0); BUN - BLOOD UREA NITROGEN 20 mg/dL (6-20); CARBON DIOXIDE - CO2 21 mmol/L (21-32); CHLORIDE 111 mmol/L (101-111); CREATININE 1.1 mg/dL (0.4-1.0); GFR - MDRD 48 (>89); GLUCOSE 132 mg/dL (70-100); POTASSIUM 4.7 mmol/L (3.5-5.0); SODIUM 138 mmol/L (135-145)
[2017-04-20 07:34] LABS: CALCIUM, IONIZED 1.14 mmol/L (1.15-1.33); VBG PH 7.251 (7.31-7.41)
--- NOTE | 2017-04-20 08:35 | XRAY Report ---
LEFT HIP, TWO-VIEW: 04/19/2017 CLINICAL INDICATION: Fracture fixation revision. FINDINGS: Frontal and lateral intraoperative images of the left hip demonstrate revision of the diane peace compression screw and long IM boyd fixation. One minute, 58 seconds of fluoroscopy time was provided to Dr. Reed; 4 spot images obtained. IMPRESSION: INTRAOPERATIVE IMAGING OF HARDWARE REVISION. JOB #: [id number] EXT JOB #:[id number]
[2017-04-20] MEDS: DONEPEZIL 5 MG TABLET PO SCH (09:33)
[2017-04-20] MEDS: ENOXAPARIN 40 MG/0.4 ML SYRINGE SUBQ SCH (09:33)
[2017-04-20] MEDS: ATENOLOL 25 MG TABLET PO SCH (09:33)
[2017-04-20] MEDS ORDERED: VANCOMYCIN INJ 1 GM in SODIUM CHLORIDE 0.9% 500 ML IV SCH (10:00)
--- NOTE | 2017-04-20 12:21 | XRAY Report ---
Fluoroscopy time only, no images submitted for interpretation. Fluoroscopy time 1 minute, 58 seconds. MTDD
[2017-04-20] MEDS: VANCOMYCIN INJ 1 GM in SODIUM CHLORIDE 0.9% 500 ML IV SCH (14:27)
--- NOTE | 2017-04-20 14:32 | PROVIDER PROGRESS NOTE ---
Assessment/Plan - Problem List (1) Postoperative wound infection of left hip Qualifiers: Encounter type: subsequent encounter Qualified Code(s): T81.4XXD - Infection following a procedure, subsequent encounter; B99.9 - Unspecified infectious disease Assessment/Plan: Pt getting local care and iv antibiotics for wound care. She is post-op day #1 with VSS. Pt lost > 2L of blood and required PRBC transfurion. Today Hgb 8.8. Will monitor CBC and begin iron replacement. PT and OT re-ordered today for post -op assessment and recommendations. (2) Hypertension Qualifiers: Hypertension type: essential hypertension Qualified Code(s): I10 - Essential (primary) hypertension Assessment/Plan: Stable BP on current management. (3) Dementia Qualifiers: Alzheimer's disease onset: early-onset Dementia behavioral disturbance: without behavioral disturbance Assessment/Plan: Stable mental status with poor memory. - Current Meds Current Meds: Current Medications Generic Name Dose Route Start Last Admin Trade Name Freq PRN Reason Stop Dose Admin Acetaminophen 650 mg 04/14/17 13:12 04/17/17 08:09 Tylenol PO 650 mg Q4HR PRN Administration Pain or Fever > 38C (100.4F) Atenolol 50 mg 04/15/17 09:00 04/20/17 09:33 Tenormin PO 50 mg DAILY [facility] Administration Donepezil HCl 5 mg 04/15/17 09:00 04/20/17 09:33 Aricept PO 5 mg DAILY [facility] Administration Enoxaparin Sodium 40 mg 04/15/17 09:00 04/20/17 09:33 Lovenox SUBQ 40 mg DAILY [facility] Administration Sodium Chloride 1,000 mls @ 83.333 mls/hr 04/19/17 00:01 04/20/17 01:45 Normal Saline 0.9% IV 83.333 mls/hr .Q12H [facility] Administration Cefepime HCl 2 gm/ Sodium 100 mls @ 200 mls/hr 04/20/17 01:00 04/20/17 01:44 Chloride IV 200 mls/hr Q24H [facility] Administration Vancomycin HCl 1 gm/ Sodium 500 mls @ 250 mls/hr 04/20/17 14:00 04/20/17 14:27 Chloride IV 250 mls/hr Q24H [facility] Administration Sodium Chloride 10 ml 04/14/17 14:00 04/20/17 14:21 Normal Saline Flush 0.9% IVP Not Given Q8HR [facility] - Lab Result Fish Bone Diagrams: 04/20/17 06:57 04/20/17 06:57 - Additional Planning My Orders: My Active Orders 04/20/17 Evaluate and Treat OT [OT] Routine Evaluate and Treat PT [PT] Routine Subjective - Subjective Patient Reports: Feeling Better (Notes state Pt had a short ambulation; Pt cannot remember if she ambulated. She has no complaints.) Objective Vital Signs: Vital Signs - 24 hr 04/19/17 04/19/17 04/19/17 15:32 21:07 21:15 Temperature 36.6 C Heart Rate [ 90 Brachial] Respiratory 16 Rate Blood Pressure 133/56 H [Right Brachial artery] O2 Saturation 100 89 L 89 L 04/19/17 04/19/17 04/19/17 21:20 21:25 21:30 Temperature Heart Rate [ Brachial] Respiratory Rate Blood Pressure [Right Brachial artery] O2 Saturation 92 94 96 04/19/17 04/19/17 04/19/17 21:45 22:00 22:15 Temperature Heart Rate [ Brachial] Respiratory Rate Blood Pressure [Right Brachial artery] O2 Saturation 99 96 97 04/19/17 04/19/17 04/19/17 22:30 22:45 23:10 Temperature 36.3 C L Heart Rate [ 66 Brachial] Respiratory 18 Rate Blood Pressure 90/60 [Right Brachial artery] O2 Saturation 99 100 100 04/19/17 04/20/17 04/20/17 23:40 00:47 01:46 Temperature 36.4 C L 36.3 C L 36.9 C Heart Rate [ 66 59 L 63 Brachial] Respiratory 16 16 16 Rate Blood Pressure 83/48 L 81/50 L 97/49 L [Right Brachial artery] O2 Saturation 100 99 100 04/20/17 04/20/17 05:15 08:13 Temperature 36.4 C L 36.3 C L Heart Rate [ 67 69 Brachial] Respiratory 16 16 Rate Blood Pressure 100/56 L 103/47 L [Right Brachial artery] O2 Saturation 100 100 Oxygen O2 Source Room air I&O (Last 24 Hrs): Intake and Output Totals x24h 04/18/17 04/19/17 04/20/17 23:59 23:59 23:59 Intake Total 870 1771 1699 Output Total 700 Balance 870 1771 999 General: Alert HEENT: Atraumatic Neck: Supple Neuro: Disoriented Cardiovascular: Regular rate Respiratory: No respiratory distress Extremities: No edema - Results Results: Laboratory Results WBC 12.5 x10^3/uL (4.8-10.8) H 04/20/17 06:57 RBC 3.11 10^6/uL (4.20-5.40) L 04/20/17 06:57 Hgb 8.8 g/dL (12.0-16.0) L 04/20/17 06:57 Hct 27.0 % (37.0-47.0) L 04/20/17 06:57 MCV 86.9 fL (81.0-99.0) 04/20/17 06:57 MCH 28.3 pg (27.0-31.0) 04/20/17 06:57 MCHC 32.6 g/dL (32.0-36.0) 04/20/17 06:57 RDW 15.5 % (12.0-15.0) H 04/20/17 06:57 Plt Count 213 10^3/uL (130-450) 04/20/17 06:57 MPV 8.3 fL (7.9-10.8) 04/20/17 06:57 Neut # 4.2 10^3/uL (1.5-6.6) 04/16/17 13:03 Lymph # 0.8 10^3/uL (1.5-3.5) L 04/16/17 13:03 Emery # 0.6 10^3/uL (0.0-1.0) 04/16/17 13:03 Eos # 0.1 10^3/uL (0.0-0.7) 04/16/17 13:03 Baso # 0.1 10^3/uL (0.0-0.1) 04/16/17 13:03 Absolute Nucleated RBC 0.00 x10^3/uL 04/16/17 13:03 Nucleated RBCs 0.0 /100WBC 04/16/17 13:03 ESR 98 mm/Hr (0-30) H 04/14/17 14:29 PT 13.5 secs (9.9-12.6) H 04/20/17 06:57 INR 1.2 (0.8-1.2) 04/20/17 06:57 VBG pH 7.251 (7.31-7.41) L 04/20/17 06:57 Ionized Calcium 1.14 mmol/L (1.15-1.33) L 04/20/17 06:57 Sodium 138 mmol/L (135-145) 04/20/17 06:57 Potassium 4.7 mmol/L (3.5-5.0) 04/20/17 06:57 Chloride 111 mmol/L (101-111) 04/20/17 06:57 Carbon Dioxide 21 mmol/L (21-32) 04/20/17 06:57 Anion Gap 6.0 (6-13) 04/20/17 06:57 BUN 20 mg/dL (6-20) 04/20/17 06:57 Creatinine 1.1 mg/dL (0.4-1.0) H 04/20/17 06:57 Estimated GFR (MDRD) 48 (>89) L 04/20/17 06:57 Glucose 132 mg/dL (70-100) H 04/20/17 06:57 Calcium 8.0 mg/dL (8.5-10.3) L 04/20/17 06:57 Ionized Calcium YES 04/20/17 06:57 Total Bilirubin 0.8 mg/dL (0.2-1.0) 04/20/17 06:57 AST 23 IU/L (10-42) 04/20/17 06:57 ALT 13 IU/L (10-60) 04/20/17 06:57 Alkaline Phosphatase 84 IU/L (42-121) 04/20/17 06:57 C-Reactive Protein 5.7 mg/dL (0-1.0) H 04/14/17 14:29 Total Protein 5.0 g/dL (6.7-8.2) L 04/20/17 06:57 Albumin 2.2 g/dL (3.2-5.5) L 04/20/17 06:57 Globulin 2.8 g/dL (2.1-4.2) 04/20/17 06:57 Albumin/Globulin Ratio 0.8 (1.0-2.2) L 04/20/17 06:57 Urine Color YELLOW 04/15/17 11:15 Urine Clarity CLEAR (CLEAR) 04/15/17 11:15 Urine pH 6.5 PH (5.0-7.5) 04/15/17 11:15 Ur Specific [place] 1.015 (1.002-1.030) 04/15/17 11:15 Urine Protein NEGATIVE mg/dL (NEGATIVE) 04/15/17 11:15 Urine Glucose (UA) NEGATIVE mg/dL (NEGATIVE) 04/15/17 11:15 Urine Ketones NEGATIVE mg/dL (NEGATIVE) 04/15/17 11:15 Urine Occult Blood NEGATIVE (NEGATIVE) 04/15/17 11:15 Urine Nitrite NEGATIVE (NEGATIVE) 04/15/17 11:15 Urine Bilirubin NEGATIVE (NEGATIVE) 04/15/17 11:15 Urine Urobilinogen 0.2 (NORMAL) E.U./dL (NORMAL) 04/15/17 11:15 Ur Leukocyte Esterase NEGATIVE (NEGATIVE) 04/15/17 11:15 Ur Microscopic Review NOT INDICATED 04/15/17 11:15 Urine Culture Comments NOT INDICATED 04/15/17 11:15 Blood Type A POSITIVE 04/19/17 18:29 Antibody Screen NEGATIVE 04/19/17 18:29 Crossmatch IS Only See Detail 04/19/17 18:29 - Procedures Procedures: Procedures REPOSITION LEFT UPPER FEMUR WITH INTRAMED FIX, OPEN APPROACH (03/10/17) TRANSFUSE NONAUT RED BLOOD CELLS IN PERIPH VEIN, PERC (03/10/17)
[2017-04-21] MEDS: CEFEPIME 2 GM in SODIUM CHLORIDE 0.9% MINIBAG 100 ML IV SCH (00:22)
[2017-04-21] MEDS: SODIUM CHLORIDE 0.9% 1,000 ML IV SCH ×4 (01:42→22:30)
[2017-04-21] MEDS: SODIUM CHLORIDE FLUSH 0.9% 10 ML SYRINGE IVP SCH ×3 (05:30→22:30)
[2017-04-21 06:27] LABS: HCT - HEMATOCRIT 20.5 % (37.0-47.0); MEAN CORPUSCULAR HEMOGLOBIN 29.2 pg (27.0-31.0); MEAN CORPUSCULAR HGB CONC 33.9 g/dL (32.0-36.0); MEAN CORPUSCULAR VOLUME 86.1 fL (81.0-99.0); MEAN PLATELET VOLUME 8.3 fL (7.9-10.8); RED BLOOD COUNT 2.38 10^6/uL (4.20-5.40); RED CELL DISTRIBUTION WIDTH 15.9 % (12.0-15.0); WHITE BLOOD COUNT 8.7 x10^3/uL (4.8-10.8)
[2017-04-21 06:35] LABS: ALBUMIN/GLOBULIN RATIO 0.9 (1.0-2.2); BILIRUBIN,TOTAL 0.6 mg/dL (0.2-1.0); BUN - BLOOD UREA NITROGEN 20 mg/dL (6-20); CALCIUM 8.3 mg/dL (8.5-10.3); CARBON DIOXIDE - CO2 20 mmol/L (21-32); CHLORIDE 109 mmol/L (101-111); CREATININE 1.2 mg/dL (0.4-1.0); GFR - MDRD 43 (>89); GLUCOSE 107 mg/dL (70-100); POTASSIUM 4.3 mmol/L (3.5-5.0); SODIUM 136 mmol/L (135-145); TOTAL PROTEIN 4.8 g/dL (6.7-8.2)
[2017-04-21 06:36] LABS: CALCIUM, IONIZED 1.18 mmol/L (1.15-1.33); INR 1.1 (0.8-1.2); PT - PROTHROMBIN TIME 12.7 secs (9.9-12.6); VBG PH 7.309 (7.31-7.41)
[2017-04-21] MEDS: FERROUS SULFATE 300 MG/5 ML UDC PO SCH (09:12)
[2017-04-21] MEDS: ATENOLOL 25 MG TABLET PO SCH (09:12)
[2017-04-21] MEDS: DONEPEZIL 5 MG TABLET PO SCH (09:13)
[2017-04-21] MEDS: ENOXAPARIN 40 MG/0.4 ML SYRINGE SUBQ SCH (09:13)
--- NOTE | 2017-04-21 10:36 | PROVIDER PROGRESS NOTE ---
Subjective - Subjective Subjective: Slow movements and weak, per staff Objective - Vital Signs/Intake & Output Vital Signs: Vital Signs x48h Temp Pulse Resp BP Pulse Ox 04/21/17 08:47 36.8 C 83 18 112/53 L 97 Intake & Output: Intake & Output 04/18/17 04/19/17 04/20/17 04/21/17 23:59 23:59 23:59 23:59 Intake Total 870 1771 4619 Output Total 1600 125 Balance 870 1771 3019 -125 - Objective General Appearance: positive: No acute distress Respiratory: positive: No respiratory distress Abdomen: positive: Non-tender - Lab Results Fish Bones: 04/21/17 06:06 04/21/17 06:06 Other Labs: Lab Results x24hrs 04/21/17 04/21/17 04/21/17 Range/Units 06:06 06:06 06:06 WBC (4.8-10.8) x10^3/uL RBC (4.20-5.40) 10^6/uL Hgb (12.0-16.0) g/dL Hct (37.0-47.0) % MCV (81.0-99.0) fL MCH (27.0-31.0) pg MCHC (32.0-36.0) g/dL RDW (12.0-15.0) % Plt Count (130-450) 10^3/uL MPV (7.9-10.8) fL PT 12.7 H (9.9-12.6) secs INR 1.1 (0.8-1.2) VBG pH 7.309 L (7.31-7.41) Ionized Calcium 1.18 YES (1.15-1.33) mmol/L Sodium 136 (135-145) mmol/L Potassium 4.3 (3.5-5.0) mmol/L Chloride 109 (101-111) mmol/L Carbon Dioxide 20 L (21-32) mmol/L Anion Gap 7.0 (6-13) BUN 20 (6-20) mg/dL Creatinine 1.2 H (0.4-1.0) mg/dL Estimated GFR (MDRD) 43 L (>89) Glucose 107 H (70-100) mg/dL Calcium 8.3 L (8.5-10.3) mg/dL Total Bilirubin 0.6 (0.2-1.0) mg/dL AST 18 (10-42) IU/L ALT 11 (10-60) IU/L Alkaline Phosphatase 94 (42-121) IU/L Total Protein 4.8 L (6.7-8.2) g/dL Albumin 2.3 L (3.2-5.5) g/dL Globulin 2.5 (2.1-4.2) g/dL Albumin/Globulin Ratio 0.9 L (1.0-2.2) 04/21/17 Range/Units 06:06 WBC 8.7 (4.8-10.8) x10^3/uL RBC 2.38 L (4.20-5.40) 10^6/uL Hgb 7.0 L* (12.0-16.0) g/dL Hct 20.5 L (37.0-47.0) % MCV 86.1 (81.0-99.0) fL MCH 29.2 (27.0-31.0) pg MCHC 33.9 (32.0-36.0) g/dL RDW 15.9 H (12.0-15.0) % Plt Count 184 (130-450) 10^3/uL MPV 8.3 (7.9-10.8) fL PT (9.9-12.6) secs INR (0.8-1.2) VBG pH (7.31-7.41) Ionized Calcium (1.15-1.33) mmol/L Sodium (135-145) mmol/L Potassium (3.5-5.0) mmol/L Chloride (101-111) mmol/L Carbon Dioxide (21-32) mmol/L Anion Gap (6-13) BUN (6-20) mg/dL Creatinine (0.4-1.0) mg/dL Estimated GFR (MDRD) (>89) Glucose (70-100) mg/dL Calcium (8.5-10.3) mg/dL Total Bilirubin (0.2-1.0) mg/dL AST (10-42) IU/L ALT (10-60) IU/L Alkaline Phosphatase (42-121) IU/L Total Protein (6.7-8.2) g/dL Albumin (3.2-5.5) g/dL Globulin (2.1-4.2) g/dL Albumin/Globulin Ratio (1.0-2.2) Assessment/Plan - Problem List (1) Postoperative wound infection of left hip Impression: No fever and no elevated WBC. Post-op day # 2. Pt on iv antibiotics. Ortho wants PICC line placed and SNF planned for 6 weeks of iv antibiotics. Qualifiers: Encounter type: subsequent encounter Qualified Code(s): T81.4XXD - Infection following a procedure, subsequent encounter; B99.9 - Unspecified infectious disease (2) Hypertension Impression: BP controlled and not hypotensive, despite marked anemia from intra-operative blood loss. Will continue to monitor VS and treat as needed. Qualifiers: Hypertension type: essential hypertension Qualified Code(s): I10 - Essential (primary) hypertension (3) Dementia Impression: Unchanged mentation, although Pt "slower" yesterday and today, likely due to marked anemia. Qualifiers: Alzheimer's disease onset: early-onset Dementia behavioral disturbance: without behavioral disturbance (4) Anemia Impression: Due to acute blood loss intra-operatively. Today there was a further drop in Hgb , and 2 more units of PRBCs ordered. Will follow H/H bid. No DCh untill Hgb > 8 and stable. Continue Fe oral supplementation. Qualifiers: Anemia type: other cause
[2017-04-21] MEDS: VANCOMYCIN INJ 1 GM in SODIUM CHLORIDE 0.9% 500 ML IV SCH (14:30)
--- NOTE | 2017-04-21 16:43 | PROCEDURE REPORT ---
Hospitalist Procedure Note - Procedure Note Procedure Note: Anesthesia note by Best Zaragoza CRNA. CXR indicated by radiologist that the tip of PICC line was 5 cm past caval-atrial junction. Removed dressing by sterile technique and pulled cath back 5 cm, redressed cath by placing op-site over entry and securing with tape and stat lock.
--- NOTE | 2017-04-21 16:51 | XRAY Report ---
FRONTAL CHEST: 04/21/2017 CLINICAL INDICATION: PICC placement. FINDINGS: Frontal view of the chest demonstrates a right arm PICC terminating in the right atrium, a pproximately 5 cm past the cavoatrial junction. The previously noted left upper lobe lesion is stable . No effusion or pneumothorax is present. The cardiac silhouette is not enlarged. IMPRESSION: RIGHT ARM PICC TERMINATING IN THE RIGHT ATRIUM, APPROXIMATELY 5 CM PAST THE CAVOATRIAL J UNCTION. JOB #: [id number] EXT JOB #:[id number]
[2017-04-21] MEDS: ACETAMINOPHEN 325 MG TABLET PO PRN (20:36)
[2017-04-21] MEDS: SODIUM CHLORIDE FLUSH 0.9% 10 ML SYRINGE IVP PRN (23:53)
[2017-04-21 23:58] LABS: HCT - HEMATOCRIT 24.7 % (37.0-47.0); HGB - HEMOGLOBIN 8.2 g/dL (12.0-16.0); MEAN CORPUSCULAR HGB CONC 33.4 g/dL (32.0-36.0); MEAN CORPUSCULAR VOLUME 86.9 fL (81.0-99.0); MEAN PLATELET VOLUME 7.9 fL (7.9-10.8); RED BLOOD COUNT 2.84 10^6/uL (4.20-5.40); RED CELL DISTRIBUTION WIDTH 15.6 % (12.0-15.0); WHITE BLOOD COUNT 6.6 x10^3/uL (4.8-10.8)
[2017-04-22] MEDS: CEFEPIME 2 GM in SODIUM CHLORIDE 0.9% MINIBAG 100 ML IV SCH (00:47)
[2017-04-22 05:16] LABS: HCT - HEMATOCRIT 24.6 % (37.0-47.0); HGB - HEMOGLOBIN 8.4 g/dL (12.0-16.0); MEAN CORPUSCULAR HEMOGLOBIN 29.5 pg (27.0-31.0); MEAN CORPUSCULAR HGB CONC 33.9 g/dL (32.0-36.0); MEAN CORPUSCULAR VOLUME 86.9 fL (81.0-99.0); RED BLOOD COUNT 2.83 10^6/uL (4.20-5.40); RED CELL DISTRIBUTION WIDTH 15.6 % (12.0-15.0); WHITE BLOOD COUNT 5.8 x10^3/uL (4.8-10.8)
[2017-04-22 05:21] LABS: INR 1.1 (0.8-1.2); PT - PROTHROMBIN TIME 12.7 secs (9.9-12.6)
[2017-04-22] MEDS: SODIUM CHLORIDE FLUSH 0.9% 10 ML SYRINGE IVP SCH ×3 (05:27→22:09)
[2017-04-22 05:30] LABS: ALBUMIN/GLOBULIN RATIO 0.9 (1.0-2.2); BILIRUBIN,TOTAL 0.8 mg/dL (0.2-1.0); BUN - BLOOD UREA NITROGEN 13 mg/dL (6-20); CALCIUM 8.2 mg/dL (8.5-10.3); CARBON DIOXIDE - CO2 21 mmol/L (21-32); CHLORIDE 111 mmol/L (101-111); GFR - MDRD 53 (>89); GLUCOSE 97 mg/dL (70-100); POTASSIUM 3.8 mmol/L (3.5-5.0); SODIUM 138 mmol/L (135-145); TOTAL PROTEIN 4.5 g/dL (6.7-8.2)
[2017-04-22 05:43] LABS: CALCIUM, IONIZED 1.2 mmol/L (1.15-1.33); VBG PH 7.39 (7.31-7.41)
--- NOTE | 2017-04-22 08:02 | PROVIDER PROGRESS NOTE ---
Subjective - Prog Note Date Prog Note Date: 04/22/17 Prog Note Time: 08:00 - Subjective Pt reports feeling: Improved (Pain well controlled. Drain still in. Cultures negative to date.) Objective - Vital Signs/Intake & Output Reviewed Vital Signs: Yes Vital Signs: Vital Signs x48h Temp Pulse Resp BP Pulse Ox 04/22/17 04:28 36.6 C 73 18 146/58 H 99 04/22/17 00:07 37.2 C 69 20 118/47 L 95 Intake & Output: Intake & Output 04/19/17 04/20/17 04/21/17 04/22/17 23:59 23:59 23:59 23:59 Intake Total 1771 4619 1108 517 Output Total 1600 515 125 Balance 1771 3019 593 392 - Objective General Appearance: positive: No acute distress, Alert Eyes Bilateral: positive: Normal inspection ENT: positive: ENT inspection nml Neck: positive: Nml inspection Respiratory: positive: No respiratory distress, Breath sounds nml Cardiovascular: positive: Regular rate & rhythm Peripheral Pulses: 2+ Dorsalis pedis (L), 2+ Posterior tibialis (L) Abdomen: positive: Non-tender, Nml bowel sounds, No distention. negative: Guarding - Lab Results Fish Bones: 04/22/17 04:55 04/22/17 04:55 Other Labs: Lab Results x24hrs 04/22/17 04/22/17 04/22/17 Range/Units 04:55 04:55 04:55 WBC (4.8-10.8) x10^3/uL RBC (4.20-5.40) 10^6/uL Hgb (12.0-16.0) g/dL Hct (37.0-47.0) % MCV (81.0-99.0) fL MCH (27.0-31.0) pg MCHC (32.0-36.0) g/dL RDW (12.0-15.0) % Plt Count (130-450) 10^3/uL MPV (7.9-10.8) fL PT 12.7 H (9.9-12.6) secs INR 1.1 (0.8-1.2) VBG pH 7.390 (7.31-7.41) Ionized Calcium 1.20 YES (1.15-1.33) mmol/L Sodium 138 (135-145) mmol/L Potassium 3.8 (3.5-5.0) mmol/L Chloride 111 (101-111) mmol/L Carbon Dioxide 21 (21-32) mmol/L Anion Gap 6.0 (6-13) BUN 13 (6-20) mg/dL Creatinine 1.0 (0.4-1.0) mg/dL Estimated GFR (MDRD) 53 L (>89) Glucose 97 (70-100) mg/dL Calcium 8.2 L (8.5-10.3) mg/dL Total Bilirubin 0.8 (0.2-1.0) mg/dL AST 14 (10-42) IU/L ALT < 10 L (10-60) IU/L Alkaline Phosphatase 97 (42-121) IU/L Total Protein 4.5 L (6.7-8.2) g/dL Albumin 2.1 L (3.2-5.5) g/dL Globulin 2.4 (2.1-4.2) g/dL Albumin/Globulin Ratio 0.9 L (1.0-2.2) Blood Type Antibody Screen Crossmatch IS Only 04/22/17 04/21/17 04/19/17 Range/Units 04:55 23:41 18:29 WBC 5.8 6.6 (4.8-10.8) x10^3/uL RBC 2.83 L 2.84 L (4.20-5.40) 10^6/uL Hgb 8.4 L 8.2 L (12.0-16.0) g/dL Hct 24.6 L 24.7 L (37.0-47.0) % MCV 86.9 86.9 (81.0-99.0) fL MCH 29.5 29.0 (27.0-31.0) pg MCHC 33.9 33.4 (32.0-36.0) g/dL RDW 15.6 H 15.6 H (12.0-15.0) % Plt Count 143 148 (130-450) 10^3/uL MPV 8.0 7.9 (7.9-10.8) fL PT (9.9-12.6) secs INR (0.8-1.2) VBG pH (7.31-7.41) Ionized Calcium (1.15-1.33) mmol/L Sodium (135-145) mmol/L Potassium (3.5-5.0) mmol/L Chloride (101-111) mmol/L Carbon Dioxide (21-32) mmol/L Anion Gap (6-13) BUN (6-20) mg/dL Creatinine (0.4-1.0) mg/dL Estimated GFR (MDRD) (>89) Glucose (70-100) mg/dL Calcium (8.5-10.3) mg/dL Total Bilirubin (0.2-1.0) mg/dL AST (10-42) IU/L ALT (10-60) IU/L Alkaline Phosphatase (42-121) IU/L Total Protein (6.7-8.2) g/dL Albumin (3.2-5.5) g/dL Globulin (2.1-4.2) g/dL Albumin/Globulin Ratio (1.0-2.2) Blood Type A POSITIVE Antibody Screen NEGATIVE Crossmatch IS Only See Detail Assessment/Plan - Problem List (1) Postoperative wound infection of left hip Impression: Stable Post-Op. 1. Continue Hemovac for 24 hours. 2. Consider transition to po antibiotics. 3. Plan for return to [facility]. Qualifiers: Encounter type: subsequent encounter Qualified Code(s): T81.4XXD - Infection following a procedure, subsequent encounter; B99.9 - Unspecified infectious disease (2) Subtrochanteric fracture of left femur Qualifiers: Encounter type: subsequent encounter Fracture healing: with malunion
[2017-04-22] MEDS: ENOXAPARIN 40 MG/0.4 ML SYRINGE SUBQ SCH (09:00)
[2017-04-22] MEDS: ATENOLOL 25 MG TABLET PO SCH (09:01)
[2017-04-22] MEDS: DONEPEZIL 5 MG TABLET PO SCH (09:01)
[2017-04-22] MEDS: FERROUS SULFATE 300 MG/5 ML UDC PO SCH (09:01)
[2017-04-22] MEDS: SODIUM CHLORIDE 0.9% 1,000 ML IV SCH ×2 (11:31→22:09)
[2017-04-22] MEDS: VANCOMYCIN INJ 1 GM in SODIUM CHLORIDE 0.9% 250 ML IV SCH (14:27)
--- NOTE | 2017-04-22 14:56 | PROVIDER PROGRESS NOTE ---
Subjective - Subjective Subjective: "I feel groggy" RN reports patient more "perky". Objective - Vital Signs/Intake & Output Vital Signs: Vital Signs x48h Temp Pulse Resp BP BP Pulse Ox 04/22/17 12:02 36.9 C 62 18 118/59 L 97 04/22/17 08:08 36.7 C 64 18 133/70 H 94 Intake & Output: Intake & Output 04/19/17 04/20/17 04/21/17 04/22/17 23:59 23:59 23:59 23:59 Intake Total 1771 4619 1108 1648 Output Total 1600 515 225 Balance 1771 3019 593 1423 - Objective General Appearance: positive: No acute distress Respiratory: positive: No respiratory distress Cardiovascular: positive: Regular rate & rhythm Extremities: positive: Nml appearance - Lab Results Fish Bones: 04/22/17 04:55 04/22/17 04:55 Other Labs: Lab Results x24hrs 04/22/17 04/22/17 04/22/17 Range/Units 13:25 04:55 04:55 WBC (4.8-10.8) x10^3/uL RBC (4.20-5.40) 10^6/uL Hgb (12.0-16.0) g/dL Hct (37.0-47.0) % MCV (81.0-99.0) fL MCH (27.0-31.0) pg MCHC (32.0-36.0) g/dL RDW (12.0-15.0) % Plt Count (130-450) 10^3/uL MPV (7.9-10.8) fL PT (9.9-12.6) secs INR (0.8-1.2) VBG pH 7.390 (7.31-7.41) Ionized Calcium 1.20 YES (1.15-1.33) mmol/L Sodium 138 (135-145) mmol/L Potassium 3.8 (3.5-5.0) mmol/L Chloride 111 (101-111) mmol/L Carbon Dioxide 21 (21-32) mmol/L Anion Gap 6.0 (6-13) BUN 13 (6-20) mg/dL Creatinine 1.0 (0.4-1.0) mg/dL Estimated GFR (MDRD) 53 L (>89) Glucose 97 (70-100) mg/dL Calcium 8.2 L (8.5-10.3) mg/dL Total Bilirubin 0.8 (0.2-1.0) mg/dL AST 14 (10-42) IU/L ALT < 10 L (10-60) IU/L Alkaline Phosphatase 97 (42-121) IU/L Total Protein 4.5 L (6.7-8.2) g/dL Albumin 2.1 L (3.2-5.5) g/dL Globulin 2.4 (2.1-4.2) g/dL Albumin/Globulin Ratio 0.9 L (1.0-2.2) Last Dose Date UNK Last Dose Time UNK Vancomycin Trough 13.1 (5.0-15.0) ug/mL Blood Type Antibody Screen Crossmatch IS Only 04/22/17 04/22/17 04/21/17 Range/Units 04:55 04:55 23:41 WBC 5.8 6.6 (4.8-10.8) x10^3/uL RBC 2.83 L 2.84 L (4.20-5.40) 10^6/uL Hgb 8.4 L 8.2 L (12.0-16.0) g/dL Hct 24.6 L 24.7 L (37.0-47.0) % MCV 86.9 86.9 (81.0-99.0) fL MCH 29.5 29.0 (27.0-31.0) pg MCHC 33.9 33.4 (32.0-36.0) g/dL RDW 15.6 H 15.6 H (12.0-15.0) % Plt Count 143 148 (130-450) 10^3/uL MPV 8.0 7.9 (7.9-10.8) fL PT 12.7 H (9.9-12.6) secs INR 1.1 (0.8-1.2) VBG pH (7.31-7.41) Ionized Calcium (1.15-1.33) mmol/L Sodium (135-145) mmol/L Potassium (3.5-5.0) mmol/L Chloride (101-111) mmol/L Carbon Dioxide (21-32) mmol/L Anion Gap (6-13) BUN (6-20) mg/dL Creatinine (0.4-1.0) mg/dL Estimated GFR (MDRD) (>89) Glucose (70-100) mg/dL Calcium (8.5-10.3) mg/dL Total Bilirubin (0.2-1.0) mg/dL AST (10-42) IU/L ALT (10-60) IU/L Alkaline Phosphatase (42-121) IU/L Total Protein (6.7-8.2) g/dL Albumin (3.2-5.5) g/dL Globulin (2.1-4.2) g/dL Albumin/Globulin Ratio (1.0-2.2) Last Dose Date Last Dose Time Vancomycin Trough (5.0-15.0) ug/mL Blood Type Antibody Screen Crossmatch IS Only 04/19/17 Range/Units 18:29 WBC (4.8-10.8) x10^3/uL RBC (4.20-5.40) 10^6/uL Hgb (12.0-16.0) g/dL Hct (37.0-47.0) % MCV (81.0-99.0) fL MCH (27.0-31.0) pg MCHC (32.0-36.0) g/dL RDW (12.0-15.0) % Plt Count (130-450) 10^3/uL MPV (7.9-10.8) fL PT (9.9-12.6) secs INR (0.8-1.2) VBG pH (7.31-7.41) Ionized Calcium (1.15-1.33) mmol/L Sodium (135-145) mmol/L Potassium (3.5-5.0) mmol/L Chloride (101-111) mmol/L Carbon Dioxide (21-32) mmol/L Anion Gap (6-13) BUN (6-20) mg/dL Creatinine (0.4-1.0) mg/dL Estimated GFR (MDRD) (>89) Glucose (70-100) mg/dL Calcium (8.5-10.3) mg/dL Total Bilirubin (0.2-1.0) mg/dL AST (10-42) IU/L ALT (10-60) IU/L Alkaline Phosphatase (42-121) IU/L Total Protein (6.7-8.2) g/dL Albumin (3.2-5.5) g/dL Globulin (2.1-4.2) g/dL Albumin/Globulin Ratio (1.0-2.2) Last Dose Date Last Dose Time Vancomycin Trough (5.0-15.0) ug/mL Blood Type A POSITIVE Antibody Screen NEGATIVE Crossmatch IS Only See Detail Assessment/Plan - Problem List (1) Postoperative wound infection of left hip Impression: oblem List (1) Postoperative wound infection of left hip Impression: No fever and no elevated WBC. Post-op day # 3. Pt on iv antibiotics. PICC line placed and SNF planned for 6 weeks of iv antibiotics. Drain for another 24 hours Qualifiers: Encounter type: subsequent encounter Qualified Code(s): T81.4XXD - Infection following a procedure, subsequent encounter; B99.9 - Unspecified infectious disease (2) Hypertension Impression: No longer hypotensive after blood transfusions. Qualifiers: Hypertension type: essential hypertension Qualified Code(s): I10 - Essential (primary) hypertension (3) Dementia Impression: Pt confused, similar to yesterday. Continue meds. Qualifiers: Alzheimer's disease onset: early-onset Dementia behavioral disturbance: without behavioral disturbance (4) Anemia Impression: Improved H/H after 4 U PRBCs total. Will recheck in am, before possible DCh Qualifiers: Anemia type: other cause (5) Constipation Impression: No BM x 3 days. Will change Fe replacement from FeSO4 to Fe Gluconate and order Bowel Care. May need suppository.
[2017-04-22] MEDS ORDERED: SENNA 8.6 MG TABLET PO SCH (19:00)
[2017-04-22] MEDS ORDERED: DOCUSATE SODIUM 250 MG CAPSULE PO SCH (19:00)
[2017-04-23] MEDS: CEFEPIME 2 GM in SODIUM CHLORIDE 0.9% MINIBAG 100 ML IV SCH (00:33)
[2017-04-23] MEDS ORDERED: MAGNESIUM HYDROXIDE 2,400 MG/30 ML UDC PO SCH (00:57)
[2017-04-23] MEDS: SODIUM CHLORIDE FLUSH 0.9% 10 ML SYRINGE IVP SCH ×3 (05:16→21:02)
[2017-04-23 05:35] LABS: BASOPHILS % (AUTO) 0.7 %; EOSINOPHILS # (AUTO) 0.1 10^3/uL (0.0-0.7); EOSINOPHILS % (AUTO) 2.2 %; HCT - HEMATOCRIT 23.9 % (37.0-47.0); LYMPHOCYTES % (AUTO) 18.1 %; MEAN CORPUSCULAR HEMOGLOBIN 29.3 pg (27.0-31.0); MEAN CORPUSCULAR HGB CONC 33.4 g/dL (32.0-36.0); MEAN CORPUSCULAR VOLUME 87.7 fL (81.0-99.0); MEAN PLATELET VOLUME 8.2 fL (7.9-10.8); MONOCYTES # (AUTO) 0.6 10^3/uL (0.0-1.0); MONOCYTES % (AUTO) 11.4 %; NEUTROPHILS # (AUTO) 3.6 10^3/uL (1.5-6.6); NEUTROPHILS % (AUTO) 67.6 %; NUCLEATED RED BLOOD CELLS AUTO 0.1 /100WBC; RED BLOOD COUNT 2.73 10^6/uL (4.20-5.40); UNCORRECTED WHITE BLOOD COUNT 5.3 x10^3/uL; WHITE BLOOD COUNT 5.3 x10^3/uL (4.8-10.8)
[2017-04-23 05:43] LABS: CALCIUM 8.2 mg/dL (8.5-10.3); CREATININE 0.9 mg/dL (0.4-1.0); POTASSIUM 3.3 mmol/L (3.5-5.0)
[2017-04-23] MEDS: ENOXAPARIN 40 MG/0.4 ML SYRINGE SUBQ SCH (08:14)
[2017-04-23] MEDS: ATENOLOL 25 MG TABLET PO SCH (08:14)
[2017-04-23] MEDS: DONEPEZIL 5 MG TABLET PO SCH (08:14)
[2017-04-23] MEDS: FERROUS GLUCONATE 324 MG TABLET PO SCH (08:14)
[2017-04-23] MEDS: SODIUM CHLORIDE 0.9% 1,000 ML IV SCH ×2 (10:18→22:53)
--- NOTE | 2017-04-23 11:44 | PROVIDER PROGRESS NOTE ---
Subjective - Prog Note Date Prog Note Date: 04/23/17 Prog Note Time: 11:42 - Subjective Pt reports feeling: Improved (Minimal hip pain.) Objective - Vital Signs/Intake & Output Vital Signs: Vital Signs x48h Temp Pulse Resp BP Pulse Ox 04/23/17 07:37 36.6 C 67 18 133/78 H 98 04/23/17 06:13 37.0 C 60 18 96 Intake & Output: Intake & Output 04/20/17 04/21/17 04/22/17 04/23/17 23:59 23:59 23:59 23:59 Intake Total 4619 1108 3202 1765 Output Total 1600 515 875 Balance 3019 593 2327 1765 - Lab Results Fish Bones: 04/23/17 05:01 04/23/17 05:01 Other Labs: Lab Results x24hrs 04/23/17 04/23/17 04/22/17 Range/Units 05:01 05:01 13:25 WBC 5.3 (4.8-10.8) x10^3/uL RBC 2.73 L (4.20-5.40) 10^6/uL Hgb 8.0 L (12.0-16.0) g/dL Hct 23.9 L (37.0-47.0) % MCV 87.7 (81.0-99.0) fL MCH 29.3 (27.0-31.0) pg MCHC 33.4 (32.0-36.0) g/dL RDW 16.0 H (12.0-15.0) % Plt Count 138 (130-450) 10^3/uL MPV 8.2 (7.9-10.8) fL Neut # 3.6 (1.5-6.6) 10^3/uL Lymph # 1.0 L (1.5-3.5) 10^3/uL [place] # 0.6 (0.0-1.0) 10^3/uL Eos # 0.1 (0.0-0.7) 10^3/uL Baso # 0.0 (0.0-0.1) 10^3/uL Absolute Nucleated RBC 0.00 x10^3/uL Nucleated RBCs 0.1 /100WBC Sodium 137 (135-145) mmol/L Potassium 3.3 L (3.5-5.0) mmol/L Chloride 111 (101-111) mmol/L Carbon Dioxide 22 (21-32) mmol/L Anion Gap 4.0 L (6-13) BUN 11 (6-20) mg/dL Creatinine 0.9 (0.4-1.0) mg/dL Estimated GFR (MDRD) 60 L (>89) Glucose 95 (70-100) mg/dL Calcium 8.2 L (8.5-10.3) mg/dL Last Dose Date UNK Last Dose Time UNK Vancomycin Trough 13.1 (5.0-15.0) ug/mL Blood Type Antibody Screen Crossmatch IS Only 04/19/17 Range/Units 18:29 WBC (4.8-10.8) x10^3/uL RBC (4.20-5.40) 10^6/uL Hgb (12.0-16.0) g/dL Hct (37.0-47.0) % MCV (81.0-99.0) fL MCH (27.0-31.0) pg MCHC (32.0-36.0) g/dL RDW (12.0-15.0) % Plt Count (130-450) 10^3/uL MPV (7.9-10.8) fL Neut # (1.5-6.6) 10^3/uL Lymph # (1.5-3.5) 10^3/uL [place] # (0.0-1.0) 10^3/uL Eos # (0.0-0.7) 10^3/uL Baso # (0.0-0.1) 10^3/uL Absolute Nucleated RBC x10^3/uL Nucleated RBCs /100WBC Sodium (135-145) mmol/L Potassium (3.5-5.0) mmol/L Chloride (101-111) mmol/L Carbon Dioxide (21-32) mmol/L Anion Gap (6-13) BUN (6-20) mg/dL Creatinine (0.4-1.0) mg/dL Estimated GFR (MDRD) (>89) Glucose (70-100) mg/dL Calcium (8.5-10.3) mg/dL Last Dose Date Last Dose Time Vancomycin Trough (5.0-15.0) ug/mL Blood Type A POSITIVE Antibody Screen NEGATIVE Crossmatch IS Only See Detail - Other Results/Comments Other Results/Comments: EXAM: Dressing intact over hip wound. Mild swelling; no erythema. Mild pain with hip rotation. Moving toes well. No calf tenderness. N/V ok distally. Moderate hemovac drainage noted. Assessment/Plan - Problem List (1) Subtrochanteric fracture of left femur Qualifiers: Encounter type: subsequent encounter Fracture type: closed Fracture healing: with malunion Qualified Code(s): S72.22XP - Displaced subtrochanteric fracture of left femur, subsequent encounter for closed fracture with malunion (2) Postoperative wound infection of left hip Impression: Satis post op PLAN: Mobilze as tolerated. Continue with antibiotic coverage as planned. Qualifiers: Encounter type: subsequent encounter Qualified Code(s): T81.4XXD - Infection following a procedure, subsequent encounter; B99.9 - Unspecified infectious disease
[2017-04-23] MEDS ORDERED: POTASSIUM CHLORIDE 20 MEQ TABLET PO SCH (12:00)
[2017-04-23] MEDS: VANCOMYCIN INJ 1 GM in SODIUM CHLORIDE 0.9% 250 ML IV SCH (14:01)
--- NOTE | 2017-04-23 18:24 | PROVIDER PROGRESS NOTE ---
Assessment/Plan - Problem List (1) Postoperative wound infection of left hip Qualifiers: Encounter type: subsequent encounter Qualified Code(s): T81.4XXD - Infection following a procedure, subsequent encounter; B99.9 - Unspecified infectious disease Assessment/Plan: Continue plan (2) Hypertension Qualifiers: Hypertension type: essential hypertension Qualified Code(s): I10 - Essential (primary) hypertension Assessment/Plan: Stable (3) Dementia Qualifiers: Alzheimer's disease onset: early-onset Dementia behavioral disturbance: without behavioral disturbance Assessment/Plan: It appears she has significant memory impairment. Once she is in her residence, this needs attention w.r.t. ADLs, etc. (4) Anemia Qualifiers: Anemia type: other cause Assessment/Plan: Still significant anemia from intra-op blood loss, despite post-op transfusions. Will transfuse 2 more units. - Current Meds Current Meds: Current Medications Generic Name Dose Route Start Last Admin Trade Name Freq PRN Reason Stop Dose Admin Acetaminophen 650 mg 04/14/17 13:12 04/21/17 20:36 Tylenol PO 650 mg Q4HR PRN Administration Pain or Fever > 38C (100.4F) Atenolol 50 mg 04/15/17 09:00 04/23/17 08:14 Tenormin PO 50 mg DAILY JANE Administration Donepezil HCl 5 mg 04/15/17 09:00 04/23/17 08:14 Aricept PO 5 mg DAILY JANE Administration Enoxaparin Sodium 40 mg 04/15/17 09:00 04/23/17 08:14 Lovenox SUBQ 40 mg DAILY JANE Administration Ferrous Gluconate 324 mg 04/23/17 08:00 04/23/17 08:14 Fergon PO 324 mg DAILYWM JANE Administration Hydromorphone HCl 1 mg 04/19/17 20:58 04/20/17 14:56 Dilaudid Inj IVP 1 mg Q2HR PRN Administration PAIN Sodium Chloride 1,000 mls @ 83.333 mls/hr 04/19/17 00:01 04/23/17 10:18 Normal Saline 0.9% IV 83.333 mls/hr .Q12H JANE Administration Cefepime HCl 2 gm/ Sodium 100 mls @ 200 mls/hr 04/20/17 01:00 04/23/17 00:33 Chloride IV 200 mls/hr Q24H JANE Administration Vancomycin HCl 1 gm/ Sodium 250 mls @ 250 mls/hr 04/22/17 15:00 04/23/17 14:01 Chloride IV 250 mls/hr Q24H JANE Administration Sodium Chloride 10 ml 04/14/17 13:00 04/21/17 23:53 Normal Saline Flush 0.9% IVP 10 ml PRN PRN Administration NEEDED PER PROVIDER ORDERS Sodium Chloride 10 ml 04/14/17 14:00 04/23/17 13:45 Normal Saline Flush 0.9% IVP 10 ml Q8HR JANE Administration Tramadol HCl 50 mg 04/19/17 20:58 04/22/17 06:19 Ultram PO 50 mg Q4HR PRN Administration PAIN - Lab Result Fish Bone Diagrams: 04/23/17 05:01 04/23/17 05:01 - Additional Planning My Orders: My Active Orders 04/22/17 18:01 Initiate Bowel Care Protocol [RC] QSHIFT 04/23/17 08:00 Ferrous Gluconate [Fergon] 324 mg PO DAILYWM 04/23/17 11:09 Transfuse RBCs Leukoreduced [RC] ONCE 04/23/17 11:25 RBC, LEUKOREDUCED Routine TYPE AND SCREEN Routine Subjective - Subjective Patient Reports: Resting Comfortably (Pt answers "I can't remember" to everything I ask.) Objective Vital Signs: Vital Signs - 24 hr 04/22/17 04/23/17 04/23/17 19:01 00:00 06:13 Temperature 36.8 C 36.8 C 37.0 C Heart Rate [ 66 74 60 Brachial] Respiratory 16 18 18 Rate Blood Pressure 126/58 L 130/63 [Right Radial artery] O2 Saturation 100 96 04/23/17 07:37 Temperature 36.6 C Heart Rate [ 67 Brachial] Respiratory 18 Rate Blood Pressure 133/78 H [Right Radial artery] O2 Saturation 98 Oxygen O2 Source Room air I&O (Last 24 Hrs): Intake and Output Totals x24h 04/21/17 04/22/17 04/23/17 23:59 23:59 23:59 Intake Total 1108 3202 2976 Output Total 515 875 155 Balance 593 2327 2821 General: Alert HEENT: Atraumatic, Mucous membr. moist/pink Neuro: Disoriented Cardiovascular: Regular rate Respiratory: No respiratory distress Extremities: No tenderness/swelling - Results Results: Laboratory Results WBC 5.3 x10^3/uL (4.8-10.8) 04/23/17 05:01 RBC 2.73 10^6/uL (4.20-5.40) L 04/23/17 05:01 Hgb 8.0 g/dL (12.0-16.0) L 04/23/17 05:01 Hct 23.9 % (37.0-47.0) L 04/23/17 05:01 MCV 87.7 fL (81.0-99.0) 04/23/17 05:01 MCH 29.3 pg (27.0-31.0) 04/23/17 05:01 MCHC 33.4 g/dL (32.0-36.0) 04/23/17 05:01 RDW 16.0 % (12.0-15.0) H 04/23/17 05:01 Plt Count 138 10^3/uL (130-450) 04/23/17 05:01 MPV 8.2 fL (7.9-10.8) 04/23/17 05:01 Neut # 3.6 10^3/uL (1.5-6.6) 04/23/17 05:01 Lymph # 1.0 10^3/uL (1.5-3.5) L 04/23/17 05:01 [place] # 0.6 10^3/uL (0.0-1.0) 04/23/17 05:01 Eos # 0.1 10^3/uL (0.0-0.7) 04/23/17 05:01 Baso # 0.0 10^3/uL (0.0-0.1) 04/23/17 05:01 Absolute Nucleated RBC 0.00 x10^3/uL 04/23/17 05:01 Nucleated RBCs 0.1 /100WBC 04/23/17 05:01 ESR 98 mm/Hr (0-30) H 04/14/17 14:29 PT 12.7 secs (9.9-12.6) H 04/22/17 04:55 INR 1.1 (0.8-1.2) 04/22/17 04:55 VBG pH 7.390 (7.31-7.41) 04/22/17 04:55 Ionized Calcium 1.20 mmol/L (1.15-1.33) 04/22/17 04:55 Sodium 137 mmol/L (135-145) 04/23/17 05:01 Potassium 3.3 mmol/L (3.5-5.0) L 04/23/17 05:01 Chloride 111 mmol/L (101-111) 04/23/17 05:01 Carbon Dioxide 22 mmol/L (21-32) 04/23/17 05:01 Anion Gap 4.0 (6-13) L 04/23/17 05:01 BUN 11 mg/dL (6-20) 04/23/17 05:01 Creatinine 0.9 mg/dL (0.4-1.0) 04/23/17 05:01 Estimated GFR (MDRD) 60 (>89) L 04/23/17 05:01 Glucose 95 mg/dL (70-100) 04/23/17 05:01 Calcium 8.2 mg/dL (8.5-10.3) L 04/23/17 05:01 Ionized Calcium YES 04/22/17 04:55 Total Bilirubin 0.8 mg/dL (0.2-1.0) 04/22/17 04:55 AST 14 IU/L (10-42) 04/22/17 04:55 ALT < 10 IU/L (10-60) L 04/22/17 04:55 Alkaline Phosphatase 97 IU/L (42-121) 04/22/17 04:55 C-Reactive Protein 5.7 mg/dL (0-1.0) H 04/14/17 14:29 Total Protein 4.5 g/dL (6.7-8.2) L 04/22/17 04:55 Albumin 2.1 g/dL (3.2-5.5) L 04/22/17 04:55 Globulin 2.4 g/dL (2.1-4.2) 04/22/17 04:55 Albumin/Globulin Ratio 0.9 (1.0-2.2) L 04/22/17 04:55 Urine Color YELLOW 04/15/17 11:15 Urine Clarity CLEAR (CLEAR) 04/15/17 11:15 Urine pH 6.5 PH (5.0-7.5) 04/15/17 11:15 Ur Specific [place] 1.015 (1.002-1.030) 04/15/17 11:15 Urine Protein NEGATIVE mg/dL (NEGATIVE) 04/15/17 11:15 Urine Glucose (UA) NEGATIVE mg/dL (NEGATIVE) 04/15/17 11:15 Urine Ketones NEGATIVE mg/dL (NEGATIVE) 04/15/17 11:15 Urine Occult Blood NEGATIVE (NEGATIVE) 04/15/17 11:15 Urine Nitrite NEGATIVE (NEGATIVE) 04/15/17 11:15 Urine Bilirubin NEGATIVE (NEGATIVE) 04/15/17 11:15 Urine Urobilinogen 0.2 (NORMAL) E.U./dL (NORMAL) 04/15/17 11:15 Ur Leukocyte Esterase NEGATIVE (NEGATIVE) 04/15/17 11:15 Ur Microscopic Review NOT INDICATED 04/15/17 11:15 Urine Culture Comments NOT INDICATED 04/15/17 11:15 Last Dose Date UNK 04/22/17 13:25 Last Dose Time UNK 04/22/17 13:25 Vancomycin Trough 13.1 ug/mL (5.0-15.0) 04/22/17 13:25 Blood Type A POSITIVE 04/23/17 11:25 Antibody Screen NEGATIVE 04/23/17 11:25 Crossmatch IS Only See Detail 04/23/17 11:25 - Procedures Procedures: Procedures REPOSITION LEFT UPPER FEMUR WITH INTRAMED FIX, OPEN APPROACH (03/10/17) TRANSFUSE NONAUT RED BLOOD CELLS IN PERIPH VEIN, PERC (03/10/17)
[2017-04-23] MEDS ORDERED: SODIUM CHLORIDE FLUSH 0.9% 10 ML SYRINGE IVP ONE (19:12)
[2017-04-23] MEDS: ACETAMINOPHEN 325 MG TABLET PO PRN (21:01)
[2017-04-23] MEDS ORDERED: FUROSEMIDE 40 MG/4 ML VIAL IVP SCH (22:21)
[2017-04-23] MEDS ORDERED: SODIUM CHLORIDE 0.9% 1,000 ML IV SCH (23:04)
[2017-04-24] MEDS: CEFEPIME 2 GM in SODIUM CHLORIDE 0.9% MINIBAG 100 ML IV SCH (01:24)
[2017-04-24] MEDS: SODIUM CHLORIDE FLUSH 0.9% 10 ML SYRINGE IVP PRN ×3 (01:25→14:23)
[2017-04-24] MEDS: SODIUM CHLORIDE FLUSH 0.9% 10 ML SYRINGE IVP SCH ×3 (05:18→23:07)
[2017-04-24] MEDS: FERROUS GLUCONATE 324 MG TABLET PO SCH (08:09)
[2017-04-24] MEDS: DONEPEZIL 5 MG TABLET PO SCH (09:30)
[2017-04-24] MEDS: ATENOLOL 25 MG TABLET PO SCH (09:30)
[2017-04-24] MEDS: ENOXAPARIN 40 MG/0.4 ML SYRINGE SUBQ SCH (09:31)
--- NOTE | 2017-04-24 12:04 | PROVIDER PROGRESS NOTE ---
Subjective - Prog Note Date Prog Note Date: 04/24/17 Prog Note Time: 12:02 - Subjective Pt reports feeling: Improved (Ambulating well with walker. Pain well controlled. No signs or symptoms of infection.) Objective - Vital Signs/Intake & Output Reviewed Vital Signs: Yes Vital Signs: Vital Signs x48h Temp Pulse Resp BP Pulse Ox 04/24/17 08:57 36.8 C 69 16 136/86 H 97 Intake & Output: Intake & Output 04/21/17 04/22/17 04/23/17 04/24/17 23:59 23:59 23:59 23:59 Intake Total 1108 3202 4156 471 Output Total 515 875 205 710 Balance 593 5835 5153 -490 - Objective General Appearance: positive: No acute distress, Alert Eyes Bilateral: positive: Normal inspection ENT: positive: ENT inspection nml Neck: positive: Nml inspection Respiratory: positive: No respiratory distress, Breath sounds nml Cardiovascular: positive: Regular rate & rhythm, No murmur Peripheral Pulses: 2+ Dorsalis pedis (L), 2+ Posterior tibialis (L) Abdomen: positive: Non-tender, Nml bowel sounds, No distention. negative: Guarding Back: positive: Nml inspection Skin: positive: Color nml, No rash, Warm, Dry Extremities: positive: Other (Minimal Left Thigh tenderness.). negative: Pedal edema, Calf tenderness, Sanjeev's sign/cords Neurologic/Psychiatric: positive: Oriented x3, Motor nml, Sensation nml, Mood/ affect nml - Lab Results Fish Bones: 04/23/17 05:01 04/23/17 05:01 Other Labs: Lab Results x24hrs 04/23/17 Range/Units 11:25 Blood Type A POSITIVE Antibody Screen NEGATIVE Crossmatch IS Only See Detail Assessment/Plan - Problem List (1) Postoperative wound infection of left hip Impression: Stable Post-Op. No signs or symptoms of infection. Cultures negative. Plan: 1. Discharge to [facility]. 2. Continue TMP/Sulfamethoxazole and Levaquin for 2 weeks. 3. Followup with Derek Peña, in two weeks. Qualifiers: Encounter type: subsequent encounter Qualified Code(s): T81.4XXD - Infection following a procedure, subsequent encounter; B99.9 - Unspecified infectious disease (2) Subtrochanteric fracture of left femur Qualifiers: Encounter type: subsequent encounter Fracture type: closed Fracture healing: with malunion Qualified Code(s): S72.22XP - Displaced subtrochanteric fracture of left femur, subsequent encounter for closed fracture with malunion
--- NOTE | 2017-04-24 12:11 | Discharge Plan ---
Discharge Plan Disposition: 03 SNF DC/Xfer Condition: Good Prescriptions: traMADol [Ultram] 50 mg PO Q4HR PRN #30 tablet PRN Reason: Pain Diet: Regular Activity Restrictions: Wt Bearing as Tolerated Shower Restrictions: No Driving Restrictions: Yes Assistance Devices: Walker, Other (Gait Belt.) No Smoking: If you smoke, Please STOP! Call for help. Follow-up with: Christiano Reed MD [Provider Admit Priv/Credential] -
[2017-04-24 13:17] LABS: HCT - HEMATOCRIT 34.6 % (37.0-47.0); HGB - HEMOGLOBIN 11.9 g/dL (12.0-16.0); MEAN CORPUSCULAR HEMOGLOBIN 29.6 pg (27.0-31.0); MEAN CORPUSCULAR HGB CONC 34.4 g/dL (32.0-36.0); MEAN CORPUSCULAR VOLUME 86.1 fL (81.0-99.0); MEAN PLATELET VOLUME 7.9 fL (7.9-10.8); RED BLOOD COUNT 4.01 10^6/uL (4.20-5.40); RED CELL DISTRIBUTION WIDTH 15.9 % (12.0-15.0)
[2017-04-24] MEDS: VANCOMYCIN INJ 1 GM in SODIUM CHLORIDE 0.9% 250 ML IV SCH (14:35)
--- NOTE | 2017-04-24 18:34 | PROVIDER PROGRESS NOTE ---
Assessment/Plan - Problem List (1) Left hip postoperative wound infection Qualifiers: Encounter type: subsequent encounter Qualified Code(s): T81.4XXD - Infection following a procedure, subsequent encounter; B99.9 - Unspecified infectious disease Assessment/Plan: Dr Prem Reed planned to DCh Pt to SNF, remove PICC line and change to po antibiotics, but Pt was not DCh due to amount of wound drainage. Will continue PICC line and iv antibiotics while Pt still an inpatient. (2) Hypertension Qualifiers: Hypertension type: essential hypertension Qualified Code(s): I10 - Essential (primary) hypertension (3) Dementia Qualifiers: Alzheimer's disease onset: early-onset Dementia behavioral disturbance: without behavioral disturbance (4) Anemia Qualifiers: Anemia type: other cause - Current Meds Current Meds: Current Medications Generic Name Dose Route Start Last Admin Trade Name Freq PRN Reason Stop Dose Admin Acetaminophen 650 mg 04/14/17 13:12 04/23/17 21:01 Tylenol PO 650 mg Q4HR PRN Administration Pain or Fever > 38C (100.4F) Atenolol 50 mg 04/15/17 09:00 04/24/17 09:30 Tenormin PO 50 mg DAILY JANE Administration Donepezil HCl 5 mg 04/15/17 09:00 04/24/17 09:30 Aricept PO 5 mg DAILY JANE Administration Enoxaparin Sodium 40 mg 04/15/17 09:00 04/24/17 09:31 Lovenox SUBQ 40 mg DAILY JANE Administration Ferrous Gluconate 324 mg 04/23/17 08:00 04/24/17 08:09 Fergon PO 324 mg DAILYWM JANE Administration Hydromorphone HCl 1 mg 04/19/17 20:58 04/20/17 14:56 Dilaudid Inj IVP 1 mg Q2HR PRN Administration PAIN Cefepime HCl 2 gm/ Sodium 100 mls @ 200 mls/hr 04/20/17 01:00 04/24/17 01:24 Chloride IV 200 mls/hr Q24H JANE Administration Vancomycin HCl 1 gm/ Sodium 250 mls @ 250 mls/hr 04/22/17 15:00 04/24/17 14:35 Chloride IV 250 mls/hr Q24H JANE Administration Sodium Chloride 1,000 mls @ 30 mls/hr 04/23/17 23:04 04/23/17 23:08 Normal Saline 0.9% IV 30 mls/hr .[id number] JANE Administration Sodium Chloride 10 ml 04/14/17 13:00 04/24/17 14:23 Normal Saline Flush 0.9% IVP 20 ml PRN PRN Administration NEEDED PER PROVIDER ORDERS Sodium Chloride 10 ml 04/14/17 14:00 04/24/17 13:03 Normal Saline Flush 0.9% IVP 10 ml Q8HR JANE Administration Tramadol HCl 50 mg 04/19/17 20:58 04/22/17 06:19 Ultram PO 50 mg Q4HR PRN Administration PAIN - Lab Result Fish Bone Diagrams: 04/24/17 13:02 04/23/17 05:01 Subjective - Subjective Patient Reports: Feeling Better (Pt ambulated well today. Then drain removed and serosanguenous fluid accumulated under taped dressing.) Objective Vital Signs: Vital Signs - 24 hr 04/23/17 04/24/17 04/24/17 23:40 08:57 14:00 Temperature 36.9 C 36.8 C 36.8 C Heart Rate [ 62 69 66 Brachial] Respiratory 18 16 16 Rate Blood Pressure 128/58 L 136/86 H 113/65 [Right Radial artery] O2 Saturation 96 97 96 04/24/17 16:34 Temperature 37.1 C Heart Rate [ 63 Brachial] Respiratory 18 Rate Blood Pressure 134/68 H [Right Radial artery] O2 Saturation 98 Oxygen O2 Source Room air I&O (Last 24 Hrs): Intake and Output Totals x24h 04/22/17 04/23/17 04/24/17 23:59 23:59 23:59 Intake Total 3202 4156 1395 Output Total 875 205 750 Balance 2327 3951 645 General: Alert, Other (Poor memory) HEENT: Mucous membr. moist/pink Neck: Supple Cardiovascular: Regular rate Respiratory: No respiratory distress Extremities: No edema, Other (Wound drainage as above.) - Results Results: Laboratory Results WBC 8.0 x10^3/uL (4.8-10.8) 04/24/17 13:02 RBC 4.01 10^6/uL (4.20-5.40) L 04/24/17 13:02 Hgb 11.9 g/dL (12.0-16.0) L 04/24/17 13:02 Hct 34.6 % (37.0-47.0) L 04/24/17 13:02 MCV 86.1 fL (81.0-99.0) 04/24/17 13:02 MCH 29.6 pg (27.0-31.0) 04/24/17 13:02 MCHC 34.4 g/dL (32.0-36.0) 04/24/17 13:02 RDW 15.9 % (12.0-15.0) H 04/24/17 13:02 Plt Count 184 10^3/uL (130-450) 04/24/17 13:02 MPV 7.9 fL (7.9-10.8) 04/24/17 13:02 Neut # 3.6 10^3/uL (1.5-6.6) 04/23/17 05:01 Lymph # 1.0 10^3/uL (1.5-3.5) L 04/23/17 05:01 [place] # 0.6 10^3/uL (0.0-1.0) 04/23/17 05:01 Eos # 0.1 10^3/uL (0.0-0.7) 04/23/17 05:01 Baso # 0.0 10^3/uL (0.0-0.1) 04/23/17 05:01 Absolute Nucleated RBC 0.00 x10^3/uL 04/23/17 05:01 Nucleated RBCs 0.1 /100WBC 04/23/17 05:01 ESR 98 mm/Hr (0-30) H 04/14/17 14:29 PT 12.7 secs (9.9-12.6) H 04/22/17 04:55 INR 1.1 (0.8-1.2) 04/22/17 04:55 VBG pH 7.390 (7.31-7.41) 04/22/17 04:55 Ionized Calcium 1.20 mmol/L (1.15-1.33) 04/22/17 04:55 Sodium 137 mmol/L (135-145) 04/23/17 05:01 Potassium 3.3 mmol/L (3.5-5.0) L 04/23/17 05:01 Chloride 111 mmol/L (101-111) 04/23/17 05:01 Carbon Dioxide 22 mmol/L (21-32) 04/23/17 05:01 Anion Gap 4.0 (6-13) L 04/23/17 05:01 BUN 11 mg/dL (6-20) 04/23/17 05:01 Creatinine 0.9 mg/dL (0.4-1.0) 04/23/17 05:01 Estimated GFR (MDRD) 60 (>89) L 04/23/17 05:01 Glucose 95 mg/dL (70-100) 04/23/17 05:01 Calcium 8.2 mg/dL (8.5-10.3) L 04/23/17 05:01 Ionized Calcium YES 04/22/17 04:55 Total Bilirubin 0.8 mg/dL (0.2-1.0) 04/22/17 04:55 AST 14 IU/L (10-42) 04/22/17 04:55 ALT < 10 IU/L (10-60) L 04/22/17 04:55 Alkaline Phosphatase 97 IU/L (42-121) 04/22/17 04:55 C-Reactive Protein 5.7 mg/dL (0-1.0) H 04/14/17 14:29 Total Protein 4.5 g/dL (6.7-8.2) L 04/22/17 04:55 Albumin 2.1 g/dL (3.2-5.5) L 04/22/17 04:55 Globulin 2.4 g/dL (2.1-4.2) 04/22/17 04:55 Albumin/Globulin Ratio 0.9 (1.0-2.2) L 04/22/17 04:55 Urine Color YELLOW 04/15/17 11:15 Urine Clarity CLEAR (CLEAR) 04/15/17 11:15 Urine pH 6.5 PH (5.0-7.5) 04/15/17 11:15 Ur Specific [place] 1.015 (1.002-1.030) 04/15/17 11:15 Urine Protein NEGATIVE mg/dL (NEGATIVE) 04/15/17 11:15 Urine Glucose (UA) NEGATIVE mg/dL (NEGATIVE) 04/15/17 11:15 Urine Ketones NEGATIVE mg/dL (NEGATIVE) 04/15/17 11:15 Urine Occult Blood NEGATIVE (NEGATIVE) 04/15/17 11:15 Urine Nitrite NEGATIVE (NEGATIVE) 04/15/17 11:15 Urine Bilirubin NEGATIVE (NEGATIVE) 04/15/17 11:15 Urine Urobilinogen 0.2 (NORMAL) E.U./dL (NORMAL) 04/15/17 11:15 Ur Leukocyte Esterase NEGATIVE (NEGATIVE) 04/15/17 11:15 Ur Microscopic Review NOT INDICATED 04/15/17 11:15 Urine Culture Comments NOT INDICATED 04/15/17 11:15 Last Dose Date UNK 04/22/17 13:25 Last Dose Time UNK 04/22/17 13:25 Vancomycin Trough 13.1 ug/mL (5.0-15.0) 04/22/17 13:25 Blood Type A POSITIVE 04/23/17 11:25 Antibody Screen NEGATIVE 04/23/17 11:25 Crossmatch IS Only See Detail 04/23/17 11:25 - Procedures Procedures: Procedures REPOSITION LEFT UPPER FEMUR WITH INTRAMED FIX, OPEN APPROACH (03/10/17) TRANSFUSE NONAUT RED BLOOD CELLS IN PERIPH VEIN, PERC (03/10/17)
[2017-04-25] MEDS ORDERED: SODIUM CHLORIDE 0.9% 500 ML IV ONE (01:07)
[2017-04-25] MEDS: CEFEPIME 2 GM in SODIUM CHLORIDE 0.9% MINIBAG 100 ML IV SCH (01:10)
[2017-04-25] MEDS: SODIUM CHLORIDE FLUSH 0.9% 10 ML SYRINGE IVP SCH ×2 (06:00→15:44)
[2017-04-25] MEDS: FERROUS GLUCONATE 324 MG TABLET PO SCH (08:05)
[2017-04-25] MEDS: DONEPEZIL 5 MG TABLET PO SCH (08:48)
[2017-04-25] MEDS: ENOXAPARIN 40 MG/0.4 ML SYRINGE SUBQ SCH (08:48)
[2017-04-25] MEDS: ATENOLOL 25 MG TABLET PO SCH (08:48)
--- NOTE | 2017-04-25 11:07 | PROVIDER PROGRESS NOTE ---
Subjective - Prog Note Date Prog Note Date: 04/25/17 Prog Note Time: 11:04 - Subjective Pt reports feeling: Improved (No pain. Mobilizing well) Objective - Vital Signs/Intake & Output Intake & Output: Intake & Output 04/22/17 04/23/17 04/24/17 04/25/17 23:59 23:59 23:59 23:59 Intake Total 3202 4156 1420 718 Output Total 875 205 750 150 Balance 2327 3951 670 568 - Lab Results Fish Bones: 04/24/17 13:02 04/23/17 05:01 Other Labs: Lab Results x24hrs 04/24/17 Range/Units 13:02 WBC 8.0 (4.8-10.8) x10^3/uL RBC 4.01 L (4.20-5.40) 10^6/uL Hgb 11.9 L (12.0-16.0) g/dL Hct 34.6 L (37.0-47.0) % MCV 86.1 (81.0-99.0) fL MCH 29.6 (27.0-31.0) pg MCHC 34.4 (32.0-36.0) g/dL RDW 15.9 H (12.0-15.0) % Plt Count 184 (130-450) 10^3/uL MPV 7.9 (7.9-10.8) fL - Other Results/Comments Other Results/Comments: EXAM: Some serosangious drainage from inferior portion of incision overnight after drain pulled yesterday None expressible this AM Wound beinging with minimal redness and non tender. Good hip motion without pain. N/V ok distally. Up in PT. Assessment/Plan - Problem List (1) Subtrochanteric fracture of left femur Qualifiers: Encounter type: subsequent encounter Fracture type: closed Fracture healing: with malunion Qualified Code(s): S72.22XP - Displaced subtrochanteric fracture of left femur, subsequent encounter for closed fracture with malunion (2) Left hip postoperative wound infection Impression: Stable PLAN: To SNF as planned for continue rehab and antibiotic coverage for 2 more weeks. Follow up with Dr. Reed as scheduled in 2 weeks. Qualifiers: Encounter type: subsequent encounter Qualified Code(s): T81.4XXD - Infection following a procedure, subsequent encounter; B99.9 - Unspecified infectious disease
[2017-04-25] MEDS ORDERED: A & D OINTMENT 5 GM PACKET TOP ONE (14:45)
[2017-04-25 15:49] VITALS: BP 141/67
--- NOTE | 2017-04-28 05:08 | OPERATIVE REPORT ---
DATE OF SURGERY: 04/19/2017 00:00:00 PREOPERATIVE DIAGNOSIS: Infected mal-reduced left cephalomedullary nail. POSTOPERATIVE DIAGNOSIS: Infected mal-reduced left cephalomedullary nail. PROCEDURES 1. Incision and drainage of the left thigh. 2. Removal of intramedullary nail. 3. Placement of cement antibiotic intramedullary nail. SURGEON: Christiano Reed MD ANESTHESIA PROVIDER: Krzysztof Goodwin CRNA. ANESTHESIA TECHNIQUE: General endotracheal tube and local. PATHOLOGY: Cultures were sent to the lab with tissue for aerobic, anaerobic, acid-fast bacillus, and fungal cultures plus Gram stain. ESTIMATED BLOOD LOSS: 1400 mL. DRAINS: Hemovac to the left thigh. COMPLICATIONS: Intraoperative blood loss requiring 2 units of packed red blood cells. Because of di fficulty getting anybody from the lab to come and do a type and cross, we elected to go with 2 units of O negative blood. IMPLANTS 1. [employer] InterTAN 360 x 10 mm cephalomedullary nail with proximal locking screws 110 mm an d 105 mm. 2. Distal interlocking screw 5 x 35 mm. 3. Palacos cement coating on the intramedullary nail with 3 grams of cefazolin and 3.6 grams of tobra mycin mixed in with the Palacos, which contained gentamicin. FLUIDS: 2700 mL of Lactated Ringer's. URINE: 100 mL. BLOOD: Leukocyte-reduced O negative blood x2 units for a total volume of 1400 mL. CONDITION AT END OF PROCEDURE: Stable. DISPOSITION: PACU, then Med/Surg. INDICATIONS: This is a 77-year-old female who had fallen and sustained a complicated reverse intertr ochanteric fracture of her proximal left femur, for which she had been taken to the operating room by Dr. Lloyd Mcgarry approximately 3 weeks prior to this procedure, where she underwent cephalomedullary na iling of the left femur. Postoperative radiographs revealed the proximal fragment to be in a somewha t flexed position. She did well initially postoperatively; but at approximately 2-1/2 weeks, she was noted to have some redness around the incision over the lateral thigh. This eventually broke down and began discharging serosanguineous fluid at first, followed by purulent fluid. She returned to the Orthopedic clinic a t approximately the 3-week point, which allowed me to send swabs for cultures. Those cultures, howev er, did not show any evidence of bacterial growth at 72 hours. Nevertheless she continued to pour ou t purulent material from the left lateral thigh, and we concluded that despite the negative culture, she was probably infected. We elected to bring her back to the operating room to do an I and D of th e left thigh, for removal of the InterTAN nail and placement of a cement-coated intramedullary nail i n the left femur. Because of difficulty acquiring the necessary equipment, particularly silicon tubi ng, the patient was admitted to the hospital and spent several days while we gathered the necessary e quipment for the surgical procedure. When we had gathered all the procedural equipment and spoken about the case with the patient and her daughter, we elected to proceed with the above-described surgery. PROCEDURE IN DETAIL: After consent and identification, the patient was brought to the operating room and placed in the supine position on the fracture table. After induction of a general endotracheal anesthesia and appropriate monitoring, the right lower extr emity was placed in a well-padded Alex stirrup in a flexed abducted and externally rotated position at the hip, with a well-padded perineal post in the perineum. This allowed us to place the left lowe r extremity in a traction boot on the traction boom. Fluoroscopy was used to make co pilot studies of t he hip to ensure that we would have adequate fluoroscopic coverage during the case. We then prepped and draped the left hip and lower extremity free in a sterile fashion in the traction boom with the shower curtain. After an appropriate timeout was conducted, we used fluoroscopic guidance to localize our starting in cision over the proximal lateral thigh. A 5 mm incision was made approximately 2 cm proximal to the tip of the greater trochanter, extending proximally. Skin and subcutaneous tissue was divided down t o the level of the fascia over the gluteus medius muscle. This was divided longitudinally. Digital palpation noted that the nail was posterior to the posterior aspect of the greater trochanter. We we re able to locate the nail, and we were able to disengage the set screw. We then were able to re-eng age the proximal drill guide on the proximal end of the nail and secure it with the locking screw. T his allowed us to make an incision over the lateral thigh, place guidewires through the drill guide i nto the proximal locking screws. These were then removed. We used fluoroscopy to localize the dista l locking screws and made a small stab wound on the lateral thigh to remove the distal locking screws . We then inserted a guidewire through the nail and removed the nail by disimpacting with the drill guide. The nail came out relatively easily. We opened our lateral incision enough to allow a thorough debridement with curettes, rongeur, and sca lpel down through the skin, subcutaneous tissue, fascia, muscle, and bony fragments at the fracture s ite. With some difficulty, we were able to place 2 each Verbrugge clamps over the spike on the anter omedial aspect of the proximal fragment, which was flexed and externally rotated. We had to signific antly externally rotate the lower leg to match the shaft of the femur with the external rotation of t he proximal fragment, but we were able to gain a relatively good reduction with the Verbrugge clamps. Using fluoroscopic guidance, we were able to verify our reduced position. We then assembled a 14 m m MITZY showcase maker/aspirator from [employer] and connected it to irrigation and suction. Using a combinati on of irrigation and suction, we reamed the femur with an irrigation solution containing chlorhexidin e. Leaving the guidewire in place, we removed the MITZY. On the back table, we took a length of silicon tubing with an inner diameter of 12.5 mm and cut it to the appropriate length of approximately 400 mm to serve as a mold for our antibiotic cement. We the n assembled 2 packs of Palacos cement in which we had placed 3.6 grams of powdered vancomycin and 3 g arcadio of powdered cefazolin. The cement also contained gentamicin. We placed 1 monomer container in the bottom of the cement gun and then poured our powdered mixture into the cement gun, followed by 2 more monomers for mixing. We mixed for 20 seconds and then injected the soupy cement into the silico n tubing with the cement gun. With the cement in a soft doughy consistency, we inserted our 360 x 10 mm cephalomedullary nail into the silicon tube and rolled it on the table to get good cement coating around the circumference of the nail. Once the cement had cured, we used a #10 blade scalpel to cut the silicon tubing off the nail. Prior to placing our cement around the nail, we had inserted beeswax into the distal nail and the int erlocking screws of the distal nail. We used a Lenora elevator to remove the wax and inserted our dustin l over the guidewire. The guidewire was then removed. Using standard technique, we then placed 2 locking screws in the proximal InterTAN nail and locked do wn the set screw. Using perfect kotlik technique, we placed the distal interlocking screw. After further thorough irrigation of the lateral thigh and proximal thigh wounds with a total of 9 li ters of sterile saline, the first 6 liters containing chlorhexidine, we closed the lateral thigh woun d with deep interrupted 0 PDS sutures to the IT band over a Hemovac which exited anterior and distal to the wound on the lateral thigh. This was connected to suction. Vertical mattress 2-0 PDS sutures were used to close the lateral thigh incision. Vertical mattress 2-0 PDS sutures were also used to close the proximal wound and the distal wound. Sterile Mepilex silver island dressings were then placed over all wounds with a gauze drain pad over the Hemovac drain. On completion of the procedure, the patient was extubated and transferred to the recovery room in goo d condition, having tolerated the procedure well. JOB #: [id number] EXT JOB #:[id number]
== END 2017-04-25 14:50 | DRG 498 ==
LOC: MS3 12:35 → UNDOADMIN 12:35 → MS3 13:00 → MS2 04-16 20:33
PROVIDERS: ADMIT Orthopaedic Surgery; ATTEND Orthopaedic Surgery
PROC: 0QP704Z Removal of Internal Fixation Device from Left Upper Femur, Open Approach (ICD-10-PCS; 2017-04-19)
PROC: 30253N1 (ICD-10-PCS; 2017-04-19)
PROC: 0QW704Z Revision of Internal Fixation Device in Left Upper Femur, Open Approach (ICD-10-PCS; principal; 2017-04-19 13:45)
PROC: 02H633Z Insertion of Infusion Device into Right Atrium, Percutaneous Approach (ICD-10-PCS; 2017-04-21)
DX: T84.621A Infection and inflammatory reaction due to internal fixation device of left femur, initial encounter (principal); S72.22 Displaced subtrochanteric fracture of left femur; D62 Acute posthemorrhagic anemia; I10 Essential (primary) hypertension; F03.90 Unspecified dementia, unspecified severity, without behavioral disturbance, psychotic disturbance, mood disturbance, and anxiety; Z96.659 Presence of unspecified artificial knee joint; R91.8 Other nonspecific abnormal finding of lung field; K59.00 Constipation, unspecified; Z87.891 Personal history of nicotine dependence; Y79.3 Surgical instruments, materials and orthopedic devices (including sutures) associated with adverse incidents; Y83.8 Other surgical procedures as the cause of abnormal reaction of the patient, or of later complication, without mention of misadventure at the time of the procedure; Z85.3 Personal history of malignant neoplasm of breast
CPT/HCPCS: 36415; 71010; 80048; 80053; 81001; 81003; 82330; 85014; 85018; 85025; 85610; 85651; 86140; 86850; 86900; 86901; 86920; 87070; 87086; 87205; 88304

== ENCOUNTER 2017-05-15 08:00 | Outpatient (CLI) | payer MEDICARE, OTHER, MEDICAID | END 2017-05-15 08:01 | disposition home or self-care (01) | LOC: LAB.R 08:00 | DX: A04.7 Enterocolitis due to Clostridium difficile (principal) | CPT/HCPCS: 87493 ==

== ENCOUNTER 2017-05-15 08:00 | Outpatient (CLI) | payer MEDICARE, OTHER, MEDICAID ==
[2017-05-15 00:34] LABS: BILIRUBIN,URINE NEGATIVE (NEGATIVE)
[2017-05-15 00:35] LABS: BASOPHILS % (AUTO) 0.3 %; EOSINOPHILS % (AUTO) 0.3 %; HCT - HEMATOCRIT 34.5 % (37.0-47.0); HGB - HEMOGLOBIN 11.7 g/dL (12.0-16.0); LYMPHOCYTES # (AUTO) 0.7 10^3/uL (1.5-3.5); LYMPHOCYTES % (AUTO) 6.7 %; MEAN CORPUSCULAR HEMOGLOBIN 29.2 pg (27.0-31.0); MEAN CORPUSCULAR HGB CONC 33.9 g/dL (32.0-36.0); MEAN CORPUSCULAR VOLUME 86.3 fL (81.0-99.0); MEAN PLATELET VOLUME 8.4 fL (7.9-10.8); MONOCYTES # (AUTO) 1.8 10^3/uL (0.0-1.0); MONOCYTES % (AUTO) 16.9 %; NEUTROPHILS # (AUTO) 8.2 10^3/uL (1.5-6.6); NEUTROPHILS % (AUTO) 75.8 %; RED CELL DISTRIBUTION WIDTH 16.4 % (12.0-15.0); UNCORRECTED WHITE BLOOD COUNT 10.8 x10^3/uL; WHITE BLOOD COUNT 10.8 x10^3/uL (4.8-10.8)
[2017-05-15 00:36] LABS: UA CHARGE (STRIP ONLY) YES; UR CULTURE IF IND NOT INDICATED
[2017-05-15 00:42] LABS: ALBUMIN/GLOBULIN RATIO 0.9 (1.0-2.2); BILIRUBIN,TOTAL 0.4 mg/dL (0.2-1.0); CALCIUM 8.3 mg/dL (8.5-10.3); CREATININE 1.3 mg/dL (0.4-1.0); POTASSIUM 3.5 mmol/L (3.5-5.0); TOTAL PROTEIN 4.9 g/dL (6.7-8.2)
[2017-05-15 01:04] LABS: PLATELET ESTIMATE, MANUAL NORMAL (130-450,000) (NORMAL); PLATELET MORPHOLOGY NORMAL APPEARANCE (NORMAL)
== END 2017-05-15 08:01 | disposition home or self-care (01) ==
LOC: LAB.R 08:00
DX: A04.7 Enterocolitis due to Clostridium difficile (principal); I10 Essential (primary) hypertension; D64.9 Anemia, unspecified; N39.0 Urinary tract infection, site not specified
CPT/HCPCS: 80053; 81001; 81003; 85025; 87086; 87493

== ENCOUNTER 2017-05-25 21:20 | Outpatient (CLI) | payer MEDICARE, OTHER, MEDICAID ==
[2017-05-25 22:17] LABS: BASOPHILS % (AUTO) 0.3 %; EOSINOPHILS # (AUTO) 0.1 10^3/uL (0.0-0.7); EOSINOPHILS % (AUTO) 0.6 %; HCT - HEMATOCRIT 32.9 % (37.0-47.0); LYMPHOCYTES # (AUTO) 0.9 10^3/uL (1.5-3.5); LYMPHOCYTES % (AUTO) 8.7 %; MEAN CORPUSCULAR HEMOGLOBIN 28.8 pg (27.0-31.0); MEAN CORPUSCULAR HGB CONC 33.5 g/dL (32.0-36.0); MEAN CORPUSCULAR VOLUME 86.2 fL (81.0-99.0); MEAN PLATELET VOLUME 8.1 fL (7.9-10.8); MONOCYTES % (AUTO) 9.9 %; NEUTROPHILS # (AUTO) 8.5 10^3/uL (1.5-6.6); NEUTROPHILS % (AUTO) 80.5 %; RED BLOOD COUNT 3.82 10^6/uL (4.20-5.40); RED CELL DISTRIBUTION WIDTH 16.3 % (12.0-15.0); UNCORRECTED WHITE BLOOD COUNT 10.6 x10^3/uL; WHITE BLOOD COUNT 10.6 x10^3/uL (4.8-10.8)
[2017-05-25 22:28] LABS: ALBUMIN/GLOBULIN RATIO 0.7 (1.0-2.2); BILIRUBIN,TOTAL 0.5 mg/dL (0.2-1.0); BUN - BLOOD UREA NITROGEN 27 mg/dL (6-20); CALCIUM 8.3 mg/dL (8.5-10.3); CARBON DIOXIDE - CO2 29 mmol/L (21-32); CHLORIDE 94 mmol/L (101-111); CREATININE 1.2 mg/dL (0.4-1.0); GFR - MDRD 43 (>89); GLUCOSE 115 mg/dL (70-100); POTASSIUM 2.9 mmol/L (3.5-5.0); SODIUM 132 mmol/L (135-145); TOTAL PROTEIN 5.4 g/dL (6.7-8.2)
== END 2017-05-25 21:21 | disposition home or self-care (01) ==
LOC: LAB.R 21:20
DX: I10 Essential (primary) hypertension (principal)
CPT/HCPCS: 80053; 85025

== ENCOUNTER 2017-06-17 14:05 | Outpatient (CLI) | payer MEDICARE, OTHER, MEDICAID ==
--- NOTE | 2017-06-17 17:34 | CONSULTATION NOTE ---
Palliative Care Consultation - Referral Referring Provider: Dr. Kan Taveras Time of Visit: 14:05 Referral setting: Assisted living (Patient is seen in her home setting, which is [facility] assisted [facility] facility. It is a taxing and considerable effort for her to leave the facility due to dementia and being wheelchair bound s/p two surgeries for L hip fracture, and it is necessary to review facilitys records.) - Information Sources Records reviewed: RN notes reviewed, Previous records reviewed History/Review of Systems obtained from: Patient, Family, Nursing Exam limitations: Clinical condition (Dementia, memory problems) - History of Present Illness Brief History of Present Illness: Thank you, Dr. Taveras, for asking the palliative care consult service to be involved in the care of your patient. I am asked to provide support regarding a recent decline in functional status, increased confusion, weight loss, anorexia and depression. [id number] for referral to speech therapy: Patient is anorexic and failing to thrive. She has developed the habit of spitting out any meat, no matter how small the size, which is new for her and may be related to advancing dementia and problems with swallowing, which puts her at risk for aspiration pneumonia. She would benefit from a swallow evaluation and treatment by the speech language therapist. This is a frail-appearing 77-year-old woman with dementia and complicated history. In February 2017 she fractured her L hip and underwent surgery. The incision became infected and she had to undergo a second surgery on the same hip. During rehabilitation at [facility] she contracted an infection of C difficile , delaying physical therapy. She was eventually discharged back to [facility], where she had been living for about a year and a half, and has completed the antibiotic cycle for C diff. The daughter has had some difficulty obtaining the stool sample kit for confirming whether the infection has cleared, and so I coordinated with the PCPs office for her to pick it up. The patients functionality has declined since the operations. After the first hip operation, she had been ambulating with her walker. Now is she unable to ambulate with a walker, and is in bed most of the time. She has increasing confusion over the past few weeks and has been asking to go back home, forgetting that her home is [facility] and has been for over a year. Her daughter is distressed by this, and by other signs of increasing confusion and memory deficits. She also thinks her mother does not always recognize her, although she feels that her mother is somewhat able to cover up her memory deficits. The patient has increasing anorexia, and weight loss of 12% over six months. She has been started on mirtazapine both for appetite and depression. Her daughter has noticed that she has started spitting out meat. She habitually eats without her dentures, but this rejection of meat is a new development, possibly secondary to having swallowing problems. The daughter has not noted any coughing or choking during meals. Today the patient refused to participate in Home Health Physical therapy because she was too tired. She had a hard time sleeping last night, saying it was too noisy. She is complaining of pain in the L hip and buttocks, but is not able to describe it. The patient states that she doesnt think she is depressed , but rather that she is bored. Her heart rate was 46 during my assessment, and BP was possibly 84/54, but the signal sounds from the sphygmomanometer were extremely faint and difficult to grinder set up operator surface. The patient denied lightheadedness, syncope, diaphoresis. The facility took the patients vital signs earlier today, and the patients pulse was 75 and BP 101/49. She has no history of a previous cardiac event. Information obtained from patient, family (daughter) nursing staff, and EMR chart notes from. Medical/Surgical History - Past Medical History Cardiovascular: reports: Hypertension, High cholesterol Neuro: reports: Dementia GI: reports: C.difficile CASEWORKER: reports: Breast cancer (Left side in 1999) : reports: Other (Unspecified kidney failure; C difficile infection 2017) Psych: reports: Depression, Eating disorder (anorexia; failure to thrive) Musculoskeletal: reports: Osteoarthritis MRSA Hx?: No - Past Surgical History Ortho: reports: Hip replacement, Knee replacement /CASEWORKER: reports: Other (lumpectomy/lymphectomy in 1999) Social History - Living Situation Living arrangement: Assisted living Living Situation: With caregiver(s) Support System: DaughterFranci, lives in [place]. Two other children, son and daughter, both live on [facility] [address]. Medications/Allergies - Medications Home Medications: Ambulatory Orders Medication Instructions Recorded Confirmed Atenolol 50 mg PO DAILY 03/11/17 06/17/17 Donepezil [Aricept] 5 mg PO DAILY 03/11/17 06/17/17 Furosemide 40 mg PO DAILY 03/11/17 06/17/17 amLODIPine [Norvasc] 5 mg PO DAILY 03/11/17 06/17/17 Acetaminophen [Tylenol] 650 mg PO Q4HR PRN #0 tablet 04/24/17 06/17/17 traMADol [Ultram] 50 mg PO Q4HR PRN #30 tablet 04/24/17 06/17/17 Acetaminophen 650 mg PO DAILY MDD in the morning 06/17/17 06/17/17 - Allergies Allergies/Adverse Reactions: Allergies Allergy/AdvReac Type Severity Reaction Status Date / Time Penicillins Allergy Unknown Verified 03/10/17 19:31 Review of Systems - Constitutional Constitutional: reports: Fatigue, Weakness, Poor appetite, Weight loss - Ears, Nose & Throat Ears, Nose & Throat: reports: Hearing loss, Dentures, Dry mouth - Cardiovascular Cardiovascular: denies: Palpitations, Chest pain, Lightheadedness, Syncope - Respiratory Respiratory: denies: Cough, SOB at rest - Gastrointestinal Gastrointestinal: denies: Constipation, Nausea, Vomiting - Genitourinary Genitourinary: denies: Dysuria, Frequency - Musculoskeletal Musculoskeletal: reports: Other (Pain in L hip and buttocks) - Neurological Neurological: reports: General weakness, Memory problems, Incoordination - Psychiatric Psychiatric: denies: Depression Physical Exam - Vital Signs Temperature: 96.7 F Pulse Rate: 46 (This morning it was 75) Blood Pressure: 84/54 (This morning it was 101/49) - Physical Exam General Appearance: positive: No acute distress, Lethargic Eyes Bilateral: positive: No lid inflammation, Conjunctivae nml, No scleral icterus ENT: positive: No signs of dehydration Neck: positive: No JVD, Trachea midline Cardiovascular: positive: Regular rate & rhythm, No murmur Respiratory: positive: No respiratory distress, Breath sounds nml, Diminished in bases (LLL) Abdomen: positive: Non-tender, Soft, Nml bowel sounds Skin: positive: No symptoms Extremities: positive: Other (L thigh tender to the touch) Neurologic/Psychiatric: positive: Disoriented to time, Weakness, Depressed mood/ affect, Flat affect Palliative Care - POLST Patient has POLST: Yes POLST Status: DNR, Comfort Measures Pain: Pain unchanged, Comment (Pain in L hip and buttocks) Tiredness/Fatigue: Moderate (4-6) Drowsiness/Sedation: Mild (1-3) Nausea: None Depression: Mild (1-3) Anxiety: Mild (1-3) (Related to pain and "boredom" and inability to do any work with her hands, like craftwork or drawing) Anorexia: Moderate (4-6), Weight loss Sleep: Sleeps poorly (poor sleep last night) Constipation: No Feelings of wellbeing/Perceived Quality of Life: Poor Performance Status: Previous level of function prior to this episode: Ambulation with walker after first hip operation. Current level of functioning: Anorexic, mostly in bed, unable to ambulate with walker, requires aid for transfer to wheelchair, requires help with ADLs, refused physical therapy today due to being too tired from a bad night of sleep, increased confusion. Palliative Care Performance Status: 50% - Palliative Care Discussion: Who is present: The patient, daughter/DPCLAYTON Barreto, myself. Surrogate decision maker: Daughter/DPOA Franci Barreto. Mobile (preferred) [phone]. Home [phone]. Patient/Family understanding of the illness: neli has some insight and understanding of dementia and is finding it difficult to watch her mother's decline over the past 3 months and she became tearful discussing this. Information preferences: Communicate with daughter Most important goals: Keeping the patient comfortable and not prolonging life unnecessarily. Patient has told all her children she never wants to be connected to machines and this was after she witnessed what a family member went through. Franci says that after what her mother endured with the hip operations and infections, she would like to avoid hospitals and ER rooms. Patient/family concerns: Her daughter is concerned about her anorexia and her increasing confusion. I offered education on the progress of dementia, ideas and approaches to increasing caloric intake. Her daughter is at risk for inspection and testing supervisor burn-out. She was tearful after my visit with her mother; she is bearing the brunt of parental caretaking, since her two [place], a brother and [place] In addition, her is in the and deployed overseas. She would very much appreciate a visit by the social group worker to give her any ideas for support groups and other help. She would also appreciate a volunteer coming to visit her mother. Her mother spoke repeatedly about wanting to take up craftworking again, but the daughter knows she is actually not capable of doing so. The OT is planning to bring needlepoint and stitching supplies as par of therapy. Impression and Recommendations - Palliative Care Impression: This is a 77-year-old woman with increasing confusion and functional decline following a hip fracture and subsequent infection of hip joint and then C difficile infection during rehabilitation. She has had significant weight loss of 12% over six months, as well as signs of depression. She has recently been started on mirtazapine both for appetite stimulant and depressive symptoms, it is too early to tell if it is effective. The patient and daughter agree that they want comfort measures and no artificial prolongation of life; at this time , Palliative Care will follow the patient for symptom control, and will monitor and transition to Hospice when appropriate. Recommendations/Counseling Done: 1. Anorexia: Continue mirtazapine 7.5mg daily, started 06/10. Increase to 15mg if still depressed/poor appetite after 2 weeks. Recommend adding powdered milk to protein shakes, milk, soups, etc, to increase calories, smaller more frequent meals with high calorie foods, speech language referral for possible dysphagia. 2. Failure to thrive: Weight loss of 12% in 6 months, exacerbated by C diff infection. Mirtazapine started, PT and OT continuing. 3. C diff infection: Antibiotic course is complete, confirmation test is pending, I coordinated with PCP clinic for daughter to order picker/assembler the test kit today, and nursing at [facility] will obtain the stool sample. Patient is unable to confirm if loose stools are still occurring. 4. Pain in L hip: Unclear if it is neurologic. She has not been asking for pain medication, so am scheduling Tylenol 650mg every morning. Will monitor and titrate as needed. PCPs plan is to limit tramadol use in order to improve balance and decrease confusion. 5. Low BP: And low heart rate, (84/54 and 46) may be an anomaly, ordered nursing at facility to monitor BP tonight and TID tomorrow. Patient is also reporting feeling fatigue today and difficulty sleeping last night. Facilitys VSs this morning were 101/49 and 75 pulse. Patient has no history of cardiac events and daughter and patient want comfort care and no further hospitalizations, so for now, monitor vital signs today and tomorrow. 6. Advanced care planning: New POLST in place: DNR and Comfort Measures, antibiotics for comfort. Palliative care will follow patient for symptom control and goals of care, and will monitor her status and transition to Hospice when appropriate. Referring ORACLE EBS ARCHITECT to follow up with daughter; recommending a Palliative Care volunteer for companionship and socialization for patient. Time Spent: 75 minutes with greater than 50% of this done in counseling and coordination of care with nursing and with daughter around failure to thrive, dementia, and pain control, and following up on C diff test, plus weighing benefits and burdens of different treatment options. Provided anticipatory guidance.
== END 2017-06-17 14:06 | disposition home or self-care (01) ==
LOC: PC 14:05
PROVIDERS: ATTEND Nurse Practitioner
DX: Z51.5 Encounter for palliative care (principal); R63.0 Anorexia; R62.7 Adult failure to thrive; A04.7 Enterocolitis due to Clostridium difficile; M25.552 Pain in left hip; M54.5 Low back pain; I95.9 Hypotension, unspecified; F03.90 Unspecified dementia, unspecified severity, without behavioral disturbance, psychotic disturbance, mood disturbance, and anxiety; Z99.3 Dependence on wheelchair; R63.4 Abnormal weight loss; F32.9 Major depressive disorder, single episode, unspecified; Z74.01 Bed confinement status; Z98.1 Arthrodesis status; R53.1 Weakness; Z66 Do not resuscitate

== ENCOUNTER 2017-06-21 08:00 | Outpatient (CLI) | payer MEDICARE, OTHER, MEDICAID ==
[2017-06-22 08:12] LABS: POTASSIUM 3.6 mmol/L (3.5-5.0); SODIUM 136 mmol/L (135-145)
[2017-06-22 08:13] LABS: ALBUMIN/GLOBULIN RATIO 0.8 (1.0-2.2); BUN - BLOOD UREA NITROGEN 24 mg/dL (6-20); CALCIUM 8.7 mg/dL (8.5-10.3); CARBON DIOXIDE - CO2 27 mmol/L (21-32); CHLORIDE 97 mmol/L (101-111); CREATININE 1.3 mg/dL (0.4-1.0); GFR - MDRD 40 (>89); GLUCOSE 81 mg/dL (70-100); TOTAL PROTEIN 5.9 g/dL (6.7-8.2)
[2017-06-22 08:14] LABS: BASOPHILS # (AUTO) 0.1 10^3/uL (0.0-0.1); BASOPHILS % (AUTO) 0.9 %; EOSINOPHILS # (AUTO) 0.1 10^3/uL (0.0-0.7); EOSINOPHILS % (AUTO) 0.8 %; HCT - HEMATOCRIT 34.1 % (37.0-47.0); HGB - HEMOGLOBIN 11.1 g/dL (12.0-16.0); LYMPHOCYTES # (AUTO) 1.1 10^3/uL (1.5-3.5); LYMPHOCYTES % (AUTO) 12.8 %; MEAN CORPUSCULAR HEMOGLOBIN 28.9 pg (27.0-31.0); MEAN CORPUSCULAR HGB CONC 32.4 g/dL (32.0-36.0); MEAN CORPUSCULAR VOLUME 89.2 fL (81.0-99.0); MEAN PLATELET VOLUME 8.9 fL (7.9-10.8); MONOCYTES # (AUTO) 0.7 10^3/uL (0.0-1.0); MONOCYTES % (AUTO) 8.7 %; NEUTROPHILS # (AUTO) 6.4 10^3/uL (1.5-6.6); NEUTROPHILS % (AUTO) 76.8 %; NUCLEATED RED BLOOD CELLS AUTO 0.3 /100WBC; RED BLOOD COUNT 3.83 10^6/uL (4.20-5.40); RED CELL DISTRIBUTION WIDTH 17.9 % (12.0-15.0); WHITE BLOOD COUNT 8.3 x10^3/uL (4.8-10.8)
[2017-06-22 08:15] LABS: PLATELET ESTIMATE, MANUAL NORMAL (130-450,000) (NORMAL); PLATELET MORPHOLOGY RARE GIANT PLATELETS (NORMAL)
== END 2017-06-21 23:59 | disposition home or self-care (01) ==
LOC: LAB.R 08:00
PROVIDERS: ATTEND Nurse Practitioner Adult Health
DX: Z79.899 Other long term (current) drug therapy (principal)
CPT/HCPCS: 80053; 85025

== ENCOUNTER 2017-06-21 15:30 | Outpatient (CLI) | payer MEDICARE, OTHER, MEDICAID ==
--- NOTE | 2017-06-21 18:40 | CONSULTATION NOTE ---
Palliative Care Follow Up - Referral Referring Provider: Dr. Kan De La Torre Time of Visit: [id number] Referral setting: Assisted living Referral Reason: Failure to Thrive - Information Sources Records reviewed: Previous records reviewed History/Review of Systems obtained from: Patient, Caregiver (clinical staff) Exam limitations: Clinical condition (patient lethargic, easily aroused but nods back off to sleep) - History of Present Illness Update Brief HPI Update: This is a 77-year-old woman with dementia, which has exacerbated the last 3 months after a hip surgery. She had fractured hip, the incision became infected , and had to have a second surgery. She was cared for at [facility] a [facility]F, after this. During this time she did develop C. difficile. She has continued to have about 30 pound weight loss since her original surgery, and has done fairly poorly and transitioning back to [facility] as well. She was admitted to palliative care services last week, was found to have hypotension with medications adjusted. Unfortunately of the staff did not make the changes and she continued to have hypotension and poor intake over the weekend. She also does continue to have poor intake decreased fluid intake and is somewhat lethargic on presentation today. The other complicating factor is that she has continued to have 2-3 times a day loose bowel diarrhea, she has had a history of C. difficile and has and it been unable to obtain a specimen in follow-up. Of note, and looking at the complexity of her care, it does appear she also has a lung mass found in the workup for her surgical intervention in February. This was thought to be a malignancy. At this point in time the decision was made by the daughter and PCP to not have any further workup given most likely would not be a candidate for treatment anyway. Social History - Living Situation Living arrangement: Assisted living Living Situation: Alone Support System: Daughter Franci was out of town for the weekend, has not seen patient. Staff check on patient, but she has not initiated much contact. Discussed with daughter related to level of care mother currently receiving vs what she might need Medications/Allergies - Medications Home Medications: Ambulatory Orders Medication Instructions Recorded Confirmed Atenolol 25 mg PO DAILY 03/11/17 06/21/17 Donepezil [Aricept] 5 mg PO DAILY 03/11/17 06/21/17 amLODIPine [Norvasc] 5 mg PO DAILY 03/11/17 06/21/17 Acetaminophen [Tylenol] 650 mg PO Q4HR PRN #0 tablet 04/24/17 06/21/17 traMADol [Ultram] 50 mg PO Q4HR PRN #30 tablet 04/24/17 06/21/17 Acetaminophen 650 mg PO DAILY MDD in the morning 06/17/17 06/21/17 Ondansetron [Ondansetron Odt] 4 mg SL Q8HR PRN 06/21/17 06/21/17 Potassium Chloride [Klor-Con M20] 20 meq PO DAILY 06/21/17 06/21/17 Saccharomyces Boulardii [Florastor] 1 cap PO BID 06/21/17 06/21/17 Zinc Oxide [Diaper Rash] 1 applic TOP BID 06/21/17 06/21/17 - Allergies Allergies/Adverse Reactions: Allergies Allergy/AdvReac Type Severity Reaction Status Date / Time Penicillins Allergy Unknown Verified 03/10/17 19:31 Review of Systems - Constitutional Constitutional: reports: Weight loss - Cardiovascular Cardiovascular: denies: Chest pain - Gastrointestinal Gastrointestinal: reports: Abdominal pain, Diarrhea (clinical staff report loose foul smelling stool, 2-3 x a day, did not have valid speciman was firm, no rechecked), Poor appetite - Genitourinary Genitourinary: reports: Incontinence - Musculoskeletal Musculoskeletal: reports: Muscle weakness - Neurological Neurological: reports: Memory problems - Psychiatric Psychiatric: reports: Depression (ROSReview of systems is limited related to patient's unable to really participate, she is somewhat lethargic. She denies any distress or pain at time of visit. She reports she just "does not feel well ". Staff reports she has had little intake including fluids, that she has slept most of the weekend, she has been incontinent. Concern is been she has been incontinent of loose foul-smelling stool. Spoke with daughter reports she had been treated with a UTI couple weeks ago.) Physical Exam - Vital Signs Temperature: 96.2 C Pulse Rate: 72 Respiratory Rate: 14 O2 Saturation: 95 (ra @ rest) Blood Pressure: 108/74 - Physical Exam General Appearance: positive: No acute distress, Lethargic Eyes Bilateral: positive: Conjunctivae nml ENT: positive: Dry mucous membranes, Other (dentures out) Neck: positive: Trachea midline Cardiovascular: positive: Regular rate & rhythm Respiratory: positive: No respiratory distress, Diminished in bases. negative: Rales, Rhonchi Abdomen: positive: Soft, Abnml bowel sounds (hyperactive), Tenderness (right upper quadrant) Skin: positive: Bruising (large hematoma right estrada) Extremities: positive: Other (unable to move on command, left foot with contracture abducting; painful to straighten) Neurologic/Psychiatric: positive: Disoriented to person, Disoriented to place, Disoriented to time, Weakness, Slurred/abnml speech, Depressed mood/affect ( patient unable to expound or participate much in conversation; denies distress; can't tell me what has been happening; did know daugthers name), Flat affect Palliative Care - POLST Patient has POLST: Yes POLST Status: DNR, Comfort Measures (completed on PC initial consult; determine the use or limitation of AB as comfort as the goal; no tube feedings) Pain: Comment (patient has not taken any tramadol for 4 days; denies pain at visit) Feelings of wellbeing/Perceived Quality of Life: Poor, Worsening (this is daughter's perception given her history with her mom) Performance Status: Patient is a max 2 person assist to the commode, she is mostly has been incontinent in her brief. Staff are changing her every 2-3 hours and as needed. And patient has not been calling but they do check on her. Patient I did attempt to have swallowed some water she did without choking. But she did have difficulty figuring out how to suck on the straw. Staff reports she has had less intake and continues to do poorly. She is getting bed baths secondary to a fall in the shower of couple weeks ago. PT/OT are working with patient, at this time mostly bed mobility, goal is to have her up in wheelchair to use for transfers to bathroom, to meals in the dining room, and for showering. - Palliative Care Discussion: Patient unable to really participate in any kind of conversation, she reports she just feels poorly and wishes we would all leave her alone. She denies any anxiety or distress. When asked if she thought she was depressed she denied this. She did have some nonsensical conversation. I did call her daughter Juliet with my concerns and the fact the patient has continued to decline. We did discuss the fact that she is presenting as a failure to thrive, she is continued to have poor intake, does appear to have signs and symptoms of recurrent C. difficile, and is very much not engaged in her surroundings. We did discuss the findings back and February. Patient had presented on workup for her hip surgery with a pulmonary mass. It did show at that point in time a spiculated nodule 3.0 x 2.8 x 2.8 cm. Along with other pulmonary nodules. It was noted that the appearance most compatible with primary lung malignancy. In discussing with the daughter goals of care she reports she did have a conversation with Dr. Taveras, recognizing that this may very much represent cancer but given her age and continued decline most likely would not choose treatment anyway. She also reported when her mother was well, she did have radiation and chemotherapy for her breast cancer 16 years ago, and after having completed that said she would not want to go through that again. We did discuss in the complexity of her patient presentation, certainly she could have given her quick decline around her surgeries, as small stroke or some other precipitating factor that accelerated her journey with dementia. As previous to this she was much more alert, interactive, though had memory problems was actually quite functional. In looking at current goals, we did discuss a few things that we might do to try and impact her situation, including treatment for this C. difficile. Though noting that Flagyl often can cause taste changes and anorexia as well. Will adjust her medications to address her hypotension, but she is quite clear she does not want to prolong her suffering and is hoping for better quality of life for her mom, if not agreed we would revisit her goals in a couple weeks. Results - Lab Results Lab and Imaging Results: Kael CMP and CBC Impression and Recommendations - Palliative Care Impression: This is a 77-year-old woman with dementia, recurrent C. difficile, hypotension, anorexia, and continued to present as failure to thrive and continued decline. Her hypotension, was not addressed over the weekend, due to series of unfortunate events. Consult with her PCP, Dr. Kan Taveras, will go ahead and treat as C. difficile without specimen, draw labs to address any other underlying issues, and adjust meds accordingly to address hypotension. In- depth conversation was had with her daughter Juliet, in regards to patient's continued decline, and goals of care. Recommendations/Counseling Done: 1. Diarrhea attributed to recurrent C. difficile. Follow-up with Dr. Taveras PCP, decision was made to prophylactically treat, given description of loose stool fell smell and patient's continued failure to thrive, I initiated Flagyl 500 mg 3 times daily for 10 days. 2. Hypotension. Discontinued on Lasix, will await labs before discontinuing potassium. Changed and verified with facility RN, Zina, atenolol 25 mg q. a.m. not p.m. as well as following parameters for amlodipine 2.5 mg. Unfortunately she received these at full dose through the weekend. 3. Anorexia. This is most likely multifactorial in origin, will keep mirtazapine at 7.5 mg daily as this was just initiated. Do not want staff to titrate that without direction. Daughter reports they are giving protein shake with each meal, we did discuss though that they as an assisted living, do not feed patient. She was heading up there to see her encouraged her to assist her with fluids. I did give her 8 ounces of water at the time of my visit. 4. Failure to thrive. This again, is most likely multifactorial in origin. Did initiate conversation with daughter about patient's continued decline, need to define goals, and possibly influenced by her assumed lung cancer. If patient does improve to a level of functioning that would be able to tolerate a chest x-ray, we could follow up with that. She does not want her mom to undergo any other surgeries are invasive tests. This also could be attributed to her medications, hypotension, as well as C. difficile. Did draw a CBC and CMP today. We will continue to revisit goals, and monitor response. Did introduce if patient continued to decline considering transition to hospice if appropriate. FACE to FACE for Wheelchair: Due extreme muscle weakness and deconditioning as a result of failure to thrive , weight loss, and post hip fracture/and repair patient has severe mobility limitations, able to two person transfer only, pivot only, is unable to accomplish mobility to support toileting, grooming/bathing, attending meals in assisted living without assistance of a wheelchair due to lower extremity weakness. She is completely incapable of using cane or walker inside home as unable to weight poor related to pain. Patient will be reliant to accomplish these tasks of activities of daily living in home such as toileting, meals/ feeding/ access to bathroom for bathing and grooming. Patient is willing to use a wheelchair, and has not expressed she would not cooperate. She does not have sufficient upper extremity strength at this point to safely propel, but does have caregiver assistance from facility, and daughter when visits, to assist with wheelchair propulsion.This would make patients ability to participate in MRADLS as a result of having the wheelchair, mobility deficits resolved. ADDENDUM: Dr. Taveras did get results from [facility] of 06/18 specimen which was negative for C diff. Discussed with him, will evaluate and treat given her history and symptoms at least for next few days and see if improved diarrhea, had recently been on AB for UTI, and high risk for recurrence. Labs noted, will keep on potassium, and noted most likely dehydration and poor nutrition adding to failure to thrive. Time Spent: Time spent 60 minutes with greater than 50% of this done in counseling and coordination of care regarding medication adherence, treatment plan, and anticipatory guidance.
== END 2017-06-21 15:31 | disposition home or self-care (01) ==
LOC: PC 15:30
PROVIDERS: ATTEND Nurse Practitioner Adult Health
DX: Z51.5 Encounter for palliative care (principal); R62.7 Adult failure to thrive; F03.90 Unspecified dementia, unspecified severity, without behavioral disturbance, psychotic disturbance, mood disturbance, and anxiety; R63.4 Abnormal weight loss; R63.0 Anorexia; R19.7 Diarrhea, unspecified; I95.9 Hypotension, unspecified; Z79.899 Other long term (current) drug therapy; Z66 Do not resuscitate; Z86.19 Personal history of other infectious and parasitic diseases; Z87.440 Personal history of urinary (tract) infections; Z91.81 History of falling

== ENCOUNTER 2017-06-24 11:35 | Outpatient (CLI) | payer OTHER, MEDICAID ==
--- NOTE | 2017-06-24 15:40 | CONSULTATION NOTE ---
Palliative Care Follow Up - Referral Referring Provider: Dr Taveras Time of Visit: 11:35am Referral setting: Assisted living (Patient is seen in her home setting, which is [facility] facility. It is a taxing and considerable effort for her to leave the facility due to dementia and being hweelchair bound s/p two surgeries for L hip frature, and it is necessary to review the facility's records.) - Information Sources Records reviewed: RN notes reviewed, Previous records reviewed History/Review of Systems obtained from: Patient, Caregiver, Nursing Exam limitations: No limitations, Clinical condition (Dementia) - History of Present Illness Update Brief HPI Update: This is a frail-appearing 77-year-old woman with dementia and a complicated history. She fractured her L hip in February 2017 and underwent surgery, then suffered a subsequent infection of the incision, and had to undergo a 2nd surgery on the same hip. She contracted C diff infection during her rehabilitation at [facility]. She discharged back to [facility], where she had been living for a year. She has lost about 30 lbs since the original surgery and has been declining and generally doing poorly. 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 She was admitted to the Palliative Care service last week, and was found to have hypotension, and medications adjusted, but the staff did not institute the changes over the weekend. HTN medications were further adjusted, and as of today her BPs are still running low, so we are continuing to titrate medications. In addition, she had continued with loose, foul smelling stools, and even though the C diff test of 06/18 was negative, it was decided to treat with Flagyl at least for a few days given her history and symptoms. Today nursing reports that she is no longer having diarrhea, and had two BMs today, with no foul smell. Patient reports continued fatigue, but denies pain. She appears lethargic and with flat affect. She denies being depressed but says she doesn't know what she is; she has nothing to do. Social History - Living Situation Living arrangement: Assisted living Living Situation: With caregiver(s) (Her daughter, Franci, lives in [place] and two other children, son and daughter, both live on the [facility].) Medications/Allergies - Medications Home Medications: Ambulatory Orders Medication Instructions Recorded Confirmed Atenolol 12.5 mg PO DAILY 03/11/17 06/24/17 Donepezil [Aricept] 5 mg PO DAILY 03/11/17 06/24/17 amLODIPine [Norvasc] 2.5 mg PO DAILY MDD give in the 03/11/17 06/24/17 a.m. Acetaminophen [Tylenol] 650 mg PO Q4HR PRN #0 tablet 04/24/17 06/24/17 traMADol [Ultram] 50 mg PO Q4HR PRN #30 tablet 04/24/17 06/24/17 Acetaminophen 650 mg PO DAILY MDD in the morning 06/17/17 06/24/17 Ondansetron [Ondansetron Odt] 4 mg SL Q8HR PRN 06/21/17 06/24/17 Potassium Chloride [Klor-Con M20] 20 meq PO DAILY 06/21/17 06/24/17 Saccharomyces Boulardii [Florastor] 1 cap PO BID 06/21/17 06/24/17 Zinc Oxide [Diaper Rash] 1 applic TOP BID 06/21/17 06/24/17 Metronidazole 500 mg PO TID 06/24/17 06/24/17 Mirtazapine 7.5 mg PO QPM 06/24/17 06/24/17 - Allergies Allergies/Adverse Reactions: Allergies Allergy/AdvReac Type Severity Reaction Status Date / Time Penicillins Allergy Unknown Verified 03/10/17 19:31 Review of Systems - Constitutional Constitutional: reports: Fatigue, Weakness, Poor appetite, Weight loss (215.6 lbs in November 2016. 189.4 and 164.8 lbs in May 2017. 156 lbs in Jun 2017) - Ears, Nose & Throat Ears, Nose & Throat: reports: Hearing loss - Cardiovascular Cardiovascular: reports: Lightheadedness (when sitting up), Decr. exercise tolerance. denies: Palpitations, Chest pain, Edema - Respiratory Respiratory: denies: Cough, SOB at rest, Pleuritic pain - Gastrointestinal Gastrointestinal: reports: Poor appetite. denies: Constipation, Diarrhea (Had 2 MBs today, not runny, not smelly. No BM yesterday.) - Genitourinary Genitourinary: reports: Incontinence. denies: Dysuria, Frequency, Urgency - Musculoskeletal Musculoskeletal: reports: Other (Denies hip pain today) - Neurological Neurological: reports: General weakness, Memory problems Physical Exam - Vital Signs Temperature: 97.5 F Pulse Rate: 65 O2 Saturation: 96 Blood Pressure: 94/54 - Physical Exam General Appearance: positive: No acute distress, Lethargic Eyes Bilateral: positive: EOMI, No lid inflammation, Conjunctivae nml, No scleral icterus ENT: positive: No signs of dehydration (Drinks a lot of fluids, which must be cold.) Neck: positive: Thyroid nml, No JVD, Trachea midline Cardiovascular: positive: Regular rate & rhythm, No murmur Abdomen: positive: Non-tender, Soft Skin: positive: Other (red sandro on L hip, does not conform to a pressure area) Extremities: positive: Pedal edema (+1) Neurologic/Psychiatric: positive: Sensation nml, Disoriented to time, Weakness, Flat affect Palliative Care - POLST Patient has POLST: Yes POLST Status: DNR, Comfort Measures Pain: No pain, Pain improved (No complaints of L hip pain) Tiredness/Fatigue: Moderate (4-6) Drowsiness/Sedation: None Nausea: None Depression: Moderate (4-6) Anxiety: None Dyspnea: None Feelings of wellbeing/Perceived Quality of Life: Poor, Worsening Performance Status: Current level of functioning: Requires 2 person transfers, and she becomes exhausted. Unable to bear weight. She eats only a few bites of meals and is still losing weight. She is well hydrated, drinking cold liquids. Still experiences lightheadedness and nausea with transfers. Palliative Care Performance Status: 40% - Palliative Care Discussion: Who is present: The patient and myself, plus caretakers and nurse for part of the assessment Surrogate decision maker: Daughter/DPCLAYTON Barreto. Mobile (preferred) [phone]. Home [phone]. Patient/Family understanding of the illness: I discussed with the that we're still working on titrating her medications, but if there is no improvement we might transition to Hospice and explained more about what to expect and that the focus was on comfort. She thought that sounded good for her. Information preferences: Follow up with daughter, left her a message summarizing my interventions and plan Most important goals: Comfort and no unnecessary prolongation of her suffering. Results - Lab Results Lab and Imaging Results: 06/18/2017 C diff toxins A&B negative 06/21/2017 Na 136 K 3.6 Cl 97 L Co2 27 BUN 24 H Creat 1.3 H GFR 40 L Glu 81 Ca 8.7 Total Bili 1.0 AST 13 ALT <10 L Alk Phos 91 TP 5.9 L ALB 2.6 L Glob 3.3 A/G ratio 0.8 L WBC 8.3 RBC 3.83 L Hgb 11.1 L Hct 34.1 L MCV 89.2 MCH 28.9 MCHC 32.4 RDW 17.9 H Plt 208 Neut# 6.4 Lymph 1.1 L Impression and Recommendations - Palliative Care Impression: This is a 77 year old woman with dementia, recurrent C fif, hypotension, anorexia with continued decline and failure to thrive. Hypotension persists and we are continuing to titrate her medications. Her C diff infection appears to have cleared and we will continue Flagyl through today and then stop it. Recommendations/Counseling Done: 1. Hypotension: Decrease atenolol again, from 25 to 12.5mg. Amlodipine currently at 2.5mg Qam, hold for systolic <100. Lasix was stopped earlier this week. Continued potassium 20meq; K+ is 3.6. Switched the potassium from tablet to capsule so it can be opened and mixed with food. 2. Diarrhea associated with C diff infection: Improved, infection appears cleared. 06/18 C diff test was negative but antibiotics had been started due to her history and symptoms. Complete today's dosage of Flagyl and then stop. 3. Depression: No improvement. Mirtzapine 7.5mg was recently started on 06/[address] Taveras. Continue. 4. Failure to thrive: No improvement. Daughter does not want invasive treatments but could accept a chest-xray (regarding lung mass) if patient improves. Red lesion on L hip, it's not a typical appearing pressure lesion, caretakers will avoid turning her on that side, report they are turning every 2 hours and monitoring skin daily. Ordered sheepskin booties to protect heels. Monitor response to medication changes, revisit goals and follow up next week. Left message with daughter summarizing interventions and plan and to call with any questions or concerns.
== END 2017-06-24 11:36 | disposition home or self-care (01) ==
LOC: PC 11:35
PROVIDERS: ATTEND Nurse Practitioner
DX: Z51.5 Encounter for palliative care (principal); F03.90 Unspecified dementia, unspecified severity, without behavioral disturbance, psychotic disturbance, mood disturbance, and anxiety; I95.9 Hypotension, unspecified; R62.7 Adult failure to thrive; R19.7 Diarrhea, unspecified; F32.9 Major depressive disorder, single episode, unspecified; R63.4 Abnormal weight loss; R53.83 Other fatigue; Z66 Do not resuscitate; Z86.19 Personal history of other infectious and parasitic diseases; Z79.899 Other long term (current) drug therapy

== ENCOUNTER 2017-06-29 11:55 | Outpatient (CLI) | payer MEDICARE, OTHER, MEDICAID ==
--- NOTE | 2017-06-29 22:12 | CONSULTATION NOTE ---
Palliative Care Follow Up - Referral Referring Provider: Dr Taveras Time of Visit: 12:00 Referral setting: Assisted living (Patient is seen in her home setting, which is [facility]. It is a taxing and considerable effort for her to leave the facility due to dementia and being wheelchair bound s/p two surgereis for L hip fracture, and it is necessary to review the facility's records.) - Information Sources Records reviewed: RN notes reviewed, Previous records reviewed History/Review of Systems obtained from: Patient, Family, Nursing Exam limitations: Clinical condition (Dementia) - History of Present Illness Update Brief HPI Update: This is frail-appearing 77-year-old woman with dementia and a complicated history. She fractrued her L hip in February 2017 and underwent surgery, then suffered a subsequent infection of the incision, and had to undergo a 2nd surgery on the same hip. She contracted C diff infection during her rehab at [facility]. She discharged back to [facility], where she had been living for a year. She has lost about 30 lbs since the original surgery and has been declining and generally doing poorly. 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 She has been hypotensive for about two weeks, and medications have been titrated. The recent BPs since the last titration indicate BPs have improved and increased and runs in high 90s to over 100. The parameters to hold amlodipine are currently <100. She is on a low dose of atenolol, we have not DC 'd it completely as it is for rate control. The patient herself continues to report lethargy, no appetite, and no interest in or motivation for anything. She feels "blah" without being able to identify anything wrong in particular, just that she doesn't want to do anything: "I sit here and look at the wall. I don't know why." She speaks in a low monotone, without making eye contact. She sleeps much of the time. She reports syncope and dizziness when moved, or when aids try to sit her up and so they have been unable to take her weight. She had been admitted to physical therapy on 06/03/18, and was able to stand and walk for the assessment -- she participated in the TUGT and Tinetti tests, both of which require the patient to be able to stand. By the next session on 06/07, her functionality had declined and she was unable to participate. OT has been put on hold until this week, due to patient's inability to participate. Social History - Living Situation Living arrangement: Assisted living Living Situation: With caregiver(s) Support System: Daughter Franci lives in [place]. Medications/Allergies - Medications Home Medications: Ambulatory Orders Medication Instructions Recorded Confirmed Atenolol 12.5 mg PO DAILY MDD Hold for SBP 03/11/17 06/29/17 <110 Donepezil [Aricept] 5 mg PO DAILY 03/11/17 06/29/17 amLODIPine [Norvasc] 2.5 mg PO DAILY MDD give in the 03/11/17 06/29/17 a.m. Acetaminophen [Tylenol] 650 mg PO Q4HR PRN #0 tablet 04/24/17 06/29/17 traMADol [Ultram] 50 mg PO Q4HR PRN #30 tablet 04/24/17 06/29/17 Acetaminophen 650 mg PO DAILY MDD in the morning 06/17/17 06/29/17 Ondansetron [Ondansetron Odt] 4 mg SL Q8HR PRN 06/21/17 06/29/17 Saccharomyces Boulardii [Florastor] 1 cap PO BID 06/21/17 06/29/17 Zinc Oxide [Diaper Rash] 1 applic TOP BID 06/21/17 06/29/17 Mirtazapine 15 mg PO QPM 06/24/17 06/29/17 Potassium Chloride Monika 20meq/5ml 5 ml PO DAILY MDD 20meq/5ml 06/29/17 - Allergies Allergies/Adverse Reactions: Allergies Allergy/AdvReac Type Severity Reaction Status Date / Time Penicillins Allergy Unknown Verified 03/10/17 19:31 Review of Systems - Constitutional Constitutional: reports: Fatigue, Weakness, Poor appetite, Weight loss (215.6 lbs in Nov 2016, 189.4 and 164.8 lbs in May 2017. 156 lbs in Jun 2017 or Jun 17, 2017.) - Ears, Nose & Throat Ears, Nose & Throat: reports: Hearing loss - Cardiovascular Cardiovascular: reports: Lightheadedness (when sitting up), Decr. exercise tolerance. denies: Chest pain, Edema - Respiratory Respiratory: denies: Cough, SOB at rest, Pleuritic pain - Gastrointestinal Gastrointestinal: reports: Poor appetite. denies: Constipation, Diarrhea - Genitourinary Genitourinary: reports: Incontinence. denies: Dysuria, Frequency, Urgency - Musculoskeletal Musculoskeletal: reports: Other (no hip pain) - Neurological Neurological: reports: General weakness, Memory problems - Psychiatric Psychiatric: reports: Depression Physical Exam - Vital Signs Temperature: 96.9 F Pulse Rate: 73 O2 Saturation: 98 Blood Pressure: 92/56 (102/69 this morning.) - Physical Exam General Appearance: positive: No acute distress, Lethargic Eyes Bilateral: positive: EOMI, No lid inflammation, Conjunctivae nml, No scleral icterus ENT: positive: No signs of dehydration Neck: positive: Thyroid nml, No JVD, Trachea midline Cardiovascular: positive: Regular rate & rhythm, No murmur, No gallop Respiratory: positive: Chest non-tender, No respiratory distress, Breath sounds nml Skin: positive: Other (red sandro on L hip is fading) Extremities: positive: Non-tender, Pedal edema (1+) Neurologic/Psychiatric: positive: Disoriented to time, Weakness, Depressed mood/ affect, Flat affect Palliative Care - POLST Patient has POLST: Yes POLST Status: DNR, Comfort Measures Pain: No pain Tiredness/Fatigue: Moderate (4-6) Drowsiness/Sedation: None Nausea: None Depression: Moderate (4-6) Anxiety: None Dyspnea: None Anorexia: Severe (7-10), Weight loss Constipation: No Feelings of wellbeing/Perceived Quality of Life: Poor Performance Status: Current level of functioning: Requires 2 person transfers and transfers exhaust her. Unable to bear weight. Eats only a few bites, assume she is losing weight but unable to get her on scales. Drinks fluids well. Light-headed and nauseous with movement. Hypotension has improved. - Palliative Care Discussion: Who is Present: Patient and myself Surrogate decision maker: Daughter/DPOA Franci Barreto. Stephan (preferred) [phone]. Home [phone] Patient/Family understanding of the illness: Daughter wanted to know the status of PT and OT. I will follow up at the Home Health/PT/OT team meeting tomorrow when this patient will be discussed. I explained to her daughter that her BP has improved since the last titration, although she is still eating poorly and still declining in function. I will increase mirtazapine to seee if this stimulates her appetite and helps the depression. I will update the daughter after the therapy meeting. Most important goals: Comfort, no unnecessary prolongation of suffering. Impression and Recommendations - Palliative Care Impression: This is a 77 year old woman with dementia with depression, severe anorexia and persistent failure to thrive. Her C diff appears resolved and hypotension has improved with medication adjustments though she still suffers from light headedness when sitting up. An increase in mirtazapine may offer antidepressant effect and stimulate appetite. If anorexia, weight loss and functional decline continue, she would meet criteria for transition to Hospice. Recommendations/Counseling Done: Hypotension: Imrproved after decreasing amlodipine to 12.5 mg daily. SBPs were greater than 100 over several days but light-headedness persists. Change the hold parameters to <110 instead of <100. Continue daily BP. Changed potassium 20meq order from [facility]/capsules (insurance won't cover to) to an oral solution 20meq/5 mL. Depression: No improveent. Increase mirtazapine to 15 mg. Failure to thrive: Severely anorexic. Increasing mirtazapine dosage to 15 mg may help stimulate appetite. Changed monthly weights to weekly, and if they can 't obtain her weight, take arm circumference. Follow up with PT/OT therapists at Home Health meeting tomorrow. Advanced care planning: Follow up with daughter to revisit goals, discuss transition to Hospice after PT/OT meeting update. Time Spent: 45 minutes with greater than 50% of this done in counseling and coordination of care with nursing staff and therapy staff regarding medication and treatment interventions. Provided anticipatory guidance to daughter.
== END 2017-06-29 11:56 | disposition home or self-care (01) ==
LOC: PC 11:55
PROVIDERS: ATTEND Nurse Practitioner
DX: Z51.5 Encounter for palliative care (principal); I95.9 Hypotension, unspecified; F32.9 Major depressive disorder, single episode, unspecified; R62.7 Adult failure to thrive; R63.4 Abnormal weight loss; R53.1 Weakness; R32 Unspecified urinary incontinence; Z66 Do not resuscitate